=== PATIENT | female | born 1965 | race Caucasian/White ===

== ENCOUNTER 2017-03-17 11:49 | Emergency (ER) | payer MEDICARE, OTHER ==
--- NOTE | 2017-03-17 12:29 | ERPHSYRPT ---
- History of Present Illness Time Seen by Provider: 03/17/17 12:00 Source: patient Patient Subjective Stated Complaint: yesterday went outside in the wet grass and then stomped feet and now has pain in left ankle Triage Nursing Assessment: ambulated to room six per self wearing a walking boot. skin w/d, color. foot warm, normal color, good pedal pulse. normal cap refill. Physician History: CC: left ankle pain Hx: 51 y/o patient of [email or web address] [employer]. She has hx of weak ankles. Usually wears a brace. Yesterday walked the dog without her brace. Stomped feet on porch and then ahd pain in left ankle. Took APAP. Using a CAM boot now. Suposed to get new special braces soon thru [facility]. No other injury or complaints. She has multiple allergies. Pain moderate and worse with movement. Lower Extremities Pain: ankle: left Allergies/Adverse Reactions: acetaminophen [From Percocet] Allergy (Verified 03/17/17 12:21) adhesive tape Allergy (Verified 03/17/17 12:21) alendronate sodium [From Fosamax] Allergy (Verified 03/17/17 12:21) azithromycin [From Zithromax Z-Ciro] Allergy (Verified 03/17/17 12:21) celecoxib [From Celebrex] Allergy (Verified 03/17/17 12:21) payan Allergy (Verified 03/17/17 12:21) codeine Allergy (Verified 03/17/17 12:21) diphenhydramine [From Benadryl] Allergy (Verified 03/17/17 12:21) moxifloxacin [From Vigamox] Allergy (Verified 03/17/17 12:21) nortriptyline Allergy (Verified 03/17/17 12:21) oxycodone [From Percocet] Allergy (Verified 03/17/17 12:21) Penicillins Allergy (Verified 03/17/17 12:21) risedronate sodium [From Actonel] Allergy (Verified 03/17/17 12:21) ropinirole [From Requip] Allergy (Verified 03/17/17 12:21) rosuvastatin [From Crestor] Allergy (Verified 03/17/17 12:21) solifenacin [From Vesicare] Allergy (Verified 03/17/17 12:21) strawberry Allergy (Verified 03/17/17 12:21) tolterodine [From Detrol] Allergy (Verified 03/17/17 12:21) topiramate [From Topamax] Allergy (Verified 03/17/17 12:21) albuterol Adverse Reaction (Verified 03/17/17 12:21) atorvastatin [From Lipitor] Adverse Reaction (Verified 03/17/17 12:21) cyclobenzaprine [From Flexeril] Adverse Reaction (Verified 03/17/17 12:21) fluticasone furoate [From Breo Ellipta] Adverse Reaction (Verified 03/17/17 12: 21) glatiramer (copolymer 1) [From Copaxone] Adverse Reaction (Verified 03/17/17 12: 21) ibuprofen Adverse Reaction (Verified 03/17/17 12:21) interferon beta-1a [From Avonex] Adverse Reaction (Verified 03/17/17 12:21) ipratropium [From Combivent] Adverse Reaction (Verified 03/17/17 12:21) ketorolac [From Acular] Adverse Reaction (Verified 03/17/17 12:21) milnacipran [From Savella] Adverse Reaction (Verified 03/17/17 12:21) nicotine [From Nicotrol] Adverse Reaction (Verified 03/17/17 12:21) vilanterol [From Breo Ellipta] Adverse Reaction (Verified 03/17/17 12:21) Home Medications: Darifenacin Hydrobromide [Darifenacin ER] 7.5 mg PO DAILY 03/17/17 [History] Duloxetine HCl [Cymbalta] 60 mg PO DAILY 03/17/17 [History] Esomeprazole Magnesium [Nexium] 40 mg PO BID 03/17/17 [History] Fenofibrate,Micronized [Fenofibrate] 134 mg PO DAILY 03/17/17 [History] Gabapentin 400 mg [Neurontin 400 MG] 400 mg PO BID 03/17/17 [History] Pitavastatin Calcium [Livalo] 2 mg PO DAILY 03/17/17 [History] Pramipexole Di-HCl 0.5 mg [Mirapex 0.5 MG Tablet] 0.5 mg PO BID 03/17/17 [ History] Propranolol HCl 10 mg PO BID 03/17/17 [History] Hx Tetanus, Diphtheria Vaccination/Date Given: No Hx Influenza Vaccination/Date Given: Yes Hx Pneumococcal Vaccination/Date Given: Yes - Review of Systems Constitutional: No Symptoms Skin: No Rash Neurological: No Focal Weakness, No Headache, No Parasthesia - Past Medical History Pertinent Past Medical History: Yes Neurological History: Peripheral Neuropathy, Other Cardiac History: High Cholesterol Endocrine Medical History: Diabetes Type II Musculoskeletal History: Fibromyalgia, Osteoarthritis, Other GI Medical History: Esophageal Disorder, GERD, Irritable Bowel Psycho-Social History: Anxiety, Depression Other Medical History: RLS, SIMMONS UVETITIS, BACK PROBLEMS, SCOLIOSIS, ANKLE WEAKNESS, LUNG SCAR TISSUE, BOOP - Past Surgical History Past Surgical History: Yes Gastrointestinal: Cholecystectomy Musculoskeletal: Orthopedic Surgery Female Surgical History: Hysterectomy Other Surgical History: CARPAL TUNNEL BILATERAL - Social History Smoking Status: Current every day smoker How long have you smoked: 40 Exposure to second hand smoke: No Drug Use: none Patient Lives Alone: No - Nursing Vital Signs Nursing Vital Signs: Initial Vital Signs Temperature 97.5 F Temperature Source Oral Pulse Rate 67 Respiratory Rate 16 Blood Pressure [Right Arm] 164/90 Pain Intensity 9 - Physical Exam General Appearance: alert Neck Exam: supple Cardiovascular/Respiratory Exam: regular rate/rhythm Neuro/Tendon Exam: normal motor functions Mental Status Exam: alert, oriented x 3, cooperative Skin Exam: warm, dry SpO2: 96 Oxygen Delivery: Room Air Comments: Left ankle tender at both malleoli. DP pulse intact. No swelling, redness, or eccymosis. - Course Nursing assessment & vital signs reviewed: Yes Ordered Tests: Active Orders 24 hr Category Date Time Status ANKLE (3 VIEWS) Stat Exams 03/17/17 12:04 Taken - Progress Progress Note: 03/17/17 12:28 Pt declines APAP but desires xray of left ankle. - Departure Time of Disposition: 12:43 Departure Disposition: Home Clinical Impression: Left ankle strain Condition: Stable Critical Care Time: No Referrals: MATT FOWLER [ACTIVE STAFF] - AGUSTO ZARATE [NON-STAFF PHY W/O PRIVILEGES] - Instructions: Ankle Sprain Additional Instructions: Wear your brace. Ice and rest. Tylenol as directed for discomfort. Follow up with Dr Zarate or [facility].
[2017-03-17 12:47] VITALS: BP 161/77; PULSE 70; O2SAT 97
--- NOTE | 2017-03-17 12:49 | XRAY ---
Indication: Pain. Comparison: None 3 views of the left ankle demonstrates tiny well-circumscribed ossification just anterior to the ankle joint either degenerative versus old injury. No other bony, articular, or soft tissue abnormalities.
== END 2017-03-17 12:46 | disposition home or self-care (01) ==
LOC: ED 11:49
DX: S93.402A Sprain of unspecified ligament of left ankle, initial encounter (principal); X50.0XXA Overexertion from strenuous movement or load, initial encounter; Z79.899 Other long term (current) drug therapy; E78.00 Pure hypercholesterolemia, unspecified; E11.9 Type 2 diabetes mellitus without complications
CPT/HCPCS: 73610; 99283

== ENCOUNTER 2019-04-30 11:02 | Emergency (ER) | payer MEDICARE ==
--- NOTE | 2019-04-30 11:40 | ERPHSYRPT ---
- History of Present Illness Time Seen by Provider: 04/30/19 11:32 Source: patient Exam Limitations: no limitations Patient Subjective Stated Complaint: pt here for pain to left shoulder, she states she lost her balance and fell striking left side and then landing face first, no loc, pt states she now has left shoulder pain and burning Triage Nursing Assessment: pt alert, no distress, walked in, resp easy, skin w/d /p. pt able to move left shoulder, radial pulse strong, no bruising or abrasions noted Physician History: 53-year-old white female with history of peripheral neuropathy hyperlipidemia, diabetes, fibromyalgia Patient arrives with complaint of pain in her left shoulder she states she has some stiffness in her neck. She states she fell last night. Patient without loss of consciousness. Patient with the above complaints. Past medical history includes peripheral neuropathy, hyperlipidemia, diabetes type 2, fibromyalgia, osteoarthritis, esophageal disorder, GERD, irritable bowel , anxiety, depression, RLS, panuveitis, back problems, scoliosis, ankle weakness , lung scar tissue, BOOP. Past surgical history includes cholecystectomy, hysterectomy, bilateral carpal tunnel Social history positive tobacco Timing/Duration: yesterday Severity: moderate Modifying Factors: Improves With: nothing Associated Symptoms: No nausea, No vomiting, No abdominal pain, No shortness of breath, No heartburn, No diaphoresis, No cough, No chills, No chest pain, No fever, No headaches, No loss of appetite, No malaise, No rash, No syncope, No seizure, No weakness Allergies/Adverse Reactions: acetaminophen [From Percocet] Allergy (Verified 04/30/19 11:30) adhesive tape Allergy (Verified 04/30/19 11:30) alendronate sodium [From Fosamax] Allergy (Verified 04/30/19 11:30) azithromycin [From Zithromax Z-Ciro] Allergy (Verified 04/30/19 11:30) celecoxib [From Celebrex] Allergy (Verified 04/30/19 11:30) payan Allergy (Verified 04/30/19 11:30) codeine Allergy (Verified 04/30/19 11:30) diphenhydramine [From Benadryl] Allergy (Verified 04/30/19 11:30) moxifloxacin [From Vigamox] Allergy (Verified 04/30/19 11:30) nortriptyline Allergy (Verified 04/30/19 11:30) oxycodone [From Percocet] Allergy (Verified 04/30/19 11:30) Penicillins Allergy (Verified 04/30/19 11:30) risedronate sodium [From Actonel] Allergy (Verified 04/30/19 11:30) ropinirole [From Requip] Allergy (Verified 04/30/19 11:30) rosuvastatin [From Crestor] Allergy (Verified 04/30/19 11:30) solifenacin [From Vesicare] Allergy (Verified 04/30/19 11:30) strawberry Allergy (Verified 04/30/19 11:30) tolterodine [From Detrol] Allergy (Verified 04/30/19 11:30) topiramate [From Topamax] Allergy (Verified 04/30/19 11:30) albuterol Adverse Reaction (Verified 04/30/19 11:30) atorvastatin [From Lipitor] Adverse Reaction (Verified 04/30/19 11:30) cyclobenzaprine [From Flexeril] Adverse Reaction (Verified 04/30/19 11:30) fluticasone furoate [From Breo Ellipta] Adverse Reaction (Verified 04/30/19 11: 30) glatiramer (copolymer 1) [From Copaxone] Adverse Reaction (Verified 04/30/19 11: 30) ibuprofen Adverse Reaction (Verified 04/30/19 11:30) interferon beta-1a [From Avonex] Adverse Reaction (Verified 04/30/19 11:30) ipratropium [From Combivent] Adverse Reaction (Verified 04/30/19 11:30) ketorolac [From Acular] Adverse Reaction (Verified 04/30/19 11:30) milnacipran [From Savella] Adverse Reaction (Verified 04/30/19 11:30) nicotine [From Nicotrol] Adverse Reaction (Verified 04/30/19 11:30) vilanterol [From Breo Ellipta] Adverse Reaction (Verified 04/30/19 11:30) Home Medications: Darifenacin Hydrobromide [Darifenacin ER] 7.5 mg PO DAILY 03/17/17 [History] Duloxetine HCl [Cymbalta] 90 mg PO DAILY 03/17/17 [History] Esomeprazole Magnesium [Nexium] 40 mg PO BID 03/17/17 [History] Estradiol 1 mg [Estrace 1 mg] 1 mg PO HS 03/17/17 [History] Fenofibrate,Micronized [Fenofibrate] 134 mg PO DAILY 03/17/17 [History] Folic Acid 1 mg PO DAILY 03/17/17 [History] Gabapentin 400 mg [Neurontin 400 MG] 400 mg PO BID 03/17/17 [History] Levalbuterol HCl [Xopenex] 1.25 mg IH Q6HPRN PRN 03/17/17 [History] Metformin HCl 500 mg [Glucophage 500 MG] 500 mg PO HS 03/17/17 [History] Methotrexate/Pf [Otrexup 12.5 mg/0.4 ml Autoinj] 12.5 mg SQ WEEKLY 03/17/17 [ History] Montelukast Sodium [Singulair] 10 mg PO DAILY 03/17/17 [History] Pitavastatin Calcium [Livalo] 2 mg PO DAILY 03/17/17 [History] Pramipexole Di-HCl 0.5 mg [Mirapex 0.5 MG Tablet] 0.5 mg PO BID 03/17/17 [ History] Promethazine HCl 25 mg [Phenergan 25 mg] 25 mg PO UD 03/17/17 [History] Propranolol HCl 10 mg PO BID 03/17/17 [History] Hx Tetanus, Diphtheria Vaccination/Date Given: No Hx Influenza Vaccination/Date Given: Yes Hx Pneumococcal Vaccination/Date Given: Yes Immunizations Up to Date: Yes - Review of Systems Constitutional: No Fever, No Chills Eyes: No Symptoms Ears, Nose, & Throat: No Symptoms Respiratory: No Cough, No Dyspnea Cardiac: No Chest Pain, No Edema, No Syncope Abdominal/Gastrointestinal: No Abdominal Pain, No Nausea, No Vomiting, No Diarrhea Genitourinary Symptoms: No Dysuria Musculoskeletal: Neck Pain (neck feels stiff), Fall, Joint Pain (left shoulder pain), No Arthralgias, No Back Pain, No Deformity, No Injury, No Joint Redness Skin: No Rash Neurological: No Dizziness, No Focal Weakness, No Sensory Changes Psychological: No Symptoms Endocrine: No Symptoms All Other Systems: Reviewed and Negative - Past Medical History Pertinent Past Medical History: Yes Neurological History: Peripheral Neuropathy, Other Cardiac History: High Cholesterol Endocrine Medical History: Diabetes Type II Musculoskeletal History: Arthritis, Fibromyalgia, Osteoarthritis, Other GI Medical History: Colitis, Esophageal Disorder, GERD, Irritable Bowel Psycho-Social History: Anxiety, Depression Other Medical History: RLS, SIMMONS UVETITIS, BACK PROBLEMS, SCOLIOSIS, ANKLE WEAKNESS, LUNG SCAR TISSUE, BOOP,MS - Past Surgical History Past Surgical History: Yes Gastrointestinal: Cholecystectomy Musculoskeletal: Orthopedic Surgery Female Surgical History: Hysterectomy Other Surgical History: CARPAL TUNNEL BILATERAL - Social History Smoking Status: Current every day smoker How long have you smoked: 40 Exposure to second hand smoke: Yes Drug Use: marijuana Patient Lives Alone: No - Female History Hx Last Menstrual Period: post Hx Now: No - Nursing Vital Signs Nursing Vital Signs: Initial Vital Signs Temperature 97.0 F 04/30/19 11:19 Pulse Rate 74 04/30/19 11:19 Respiratory Rate 16 04/30/19 11:19 Blood Pressure 132/74 04/30/19 11:19 O2 Sat by Pulse Oximetry 97 04/30/19 11:19 Pain Scale Pain Intensity 10 - Physical Exam General Appearance: no apparent distress, alert Eye Exam: PERRL/EOMI, eyes nml inspection Ears, Nose, Throat Exam: normal ENT inspection, TMs normal, pharynx normal, moist mucous membranes Neck Exam: non-tender, supple, full range of motion, other (patient states neck feels stiff) Respiratory Exam: normal breath sounds, lungs clear, No respiratory distress Cardiovascular Exam: regular rate/rhythm, normal heart sounds, normal peripheral pulses, capillary refill <2 sec Gastrointestinal/Abdomen Exam: soft, normal bowel sounds, No tenderness, No mass Back Exam: normal inspection, normal range of motion, No CVA tenderness, No vertebral tenderness Extremity Exam: other (ddecreased range of motion left shoulder secondary to pain. Left shoulder tender with palpation superiorly) Neurologic Exam: alert, oriented x 3, cooperative, maths tutor II-XII nml as tested, normal mood/affect, nml cerebellar function, nml station & gait, sensation nml, No motor deficits Skin Exam: normal color, warm, dry, No rash Lymphatic Exam: No adenopathy SpO2 Interpretation: normal (97%) SpO2: 97 - Course Nursing assessment & vital signs reviewed: Yes - Radiology Exams Left Shoulder X-ray Interpretation: Teleradiologist Report (x-ray left shoulder: No acute findings noted) C-Spine X-ray Interpretation: Teleradiologist Report (x-ray C-spine: Impression 1. Status post anterior fusion at the C6-C7 level with intravertebral spacers present. The hardware is intact without evidence for loosening, fracture, or failure. 2. Slight narrowing of the C5-C6 disc space.) Ordered Tests: Active Orders 24 hr Category Date Time Status Sling Application STAT Care 04/30/19 13:20 Active CERVICAL SPINE (2 OR 3 VIEW) Stat Exams 04/30/19 11:35 Taken SHOULDER Stat Exams 04/30/19 11:36 Taken Medication Summary Discontinued Medications Generic Name Dose Route Start Last Admin Trade Name Freq PRN Reason Stop Dose Admin Hydrocodone Bitart/Acetaminophen 1 tab 04/30/19 11:36 04/30/19 12:08 [place] 5/325 Mg PO 04/30/19 11:37 Not Given STAT ONE Hydrocodone Bitart/Acetaminophen Confirm 04/30/19 11:49 [place] 5/325 Mg Administered 04/30/19 11:50 Dose 1 tab .ROUTE .STK-MED ONE - Progress Progress: improved Progress Note: 04/30/19 13:17 Patient's x-ray of the patient's left shoulder and C-spine no acute fractures or subluxation. Will offer patient a sling sent home with prescription for [place] for pain. She states she can take this medication She is driving so she was not given any in the emergency room. - Departure Departure Disposition: Home Clinical Impression: Accidental fall Qualifiers: Encounter type: initial encounter Qualified Code(s): W19.XXXA - Unspecified fall, initial encounter Left shoulder strain Qualifiers: Encounter type: initial encounter Qualified Code(s): S46.912A - Strain of unspecified muscle, fascia and tendon at shoulder and upper arm level, left arm , initial encounter Cervical strain Qualifiers: Encounter type: initial encounter Qualified Code(s): S16.1XXA - Strain of muscle, fascia and tendon at neck level, initial encounter Condition: Fair Critical Care Time: No Referrals: DOCTOR,NO FAMILY [Primary Care Provider] - Instructions: Preventing Falls Additional Instructions: Return home. Cold packs to left shoulder 24-48 hours. [place] as prescribed. Followup with your family if symptoms are worse, no better in 48 hours or persist longer than one week. Return for acute distress or for severe symptoms. Prescriptions: Hydrocodone/APAP 5-325 Tab^^^ [[place] 5-325 Tablet^^^] 1 tab PO Q6HPRN PRN #10 tablet MDD 6 PRN Reason: left shoulder, neck pain
[2019-04-30] MEDS ORDERED: NORCO 5/325 MG ONE (11:49)
[2019-04-30] MEDS: NORCO 5/325 MG PO ONE ×2 (12:06→12:08)
[2019-04-30 13:22] VITALS: BP 122/68; PULSE 72; O2SAT 97
--- NOTE | 2019-04-30 21:11 | XRAY ---
Indication: Pain following fall. Comparison: None 3 views of the left scapula demonstrates minimal AC degenerative arthropathy and lower cervical fusion. No other bony, articular, or soft tissue abnormalities. Comment: Preliminary interpretation was made by [facility]. No discrepancy.
--- NOTE | 2019-04-30 21:13 | XRAY ---
Indication: Neck pain following fall. Comparison: None 3 views of the cervical spine demonstrates normal alignment, C6-C7 anterior fusion, and mild C5-C6 endplate spurring. No other bony, articular, or soft tissue abnormalities. Comment: Preliminary interpretation was made by [facility]. No discrepancy.
== END 2019-04-30 13:35 | disposition home or self-care (01) ==
LOC: ED 11:02
DX: S46.912A Strain of unspecified muscle, fascia and tendon at shoulder and upper arm level, left arm, initial encounter (principal); S16.2XXA Laceration of muscle, fascia and tendon at neck level, initial encounter; W19.XXXA Unspecified fall, initial encounter; G62.9 Polyneuropathy, unspecified; E78.5 Hyperlipidemia, unspecified; E11.9 Type 2 diabetes mellitus without complications; Z79.4 Long term (current) use of insulin; M79.7 Fibromyalgia; K21.9 Gastro-esophageal reflux disease without esophagitis; F41.9 Anxiety disorder, unspecified; F32.9 Major depressive disorder, single episode, unspecified
CPT/HCPCS: 72040; 73030; 99284; A9270-GY

== ENCOUNTER 2019-07-18 10:33 | Emergency (ER) | payer MEDICARE ==
--- NOTE | 2019-07-18 11:21 | ERPHSYRPT ---
- History of Present Illness Time Seen by Provider: 07/18/19 11:00 Source: patient Exam Limitations: no limitations Patient Subjective Stated Complaint: pt stated that she has chronic back pain/ injury, pt stated that she was laying on the picnic bench and left leg fell to the ground, pt states that she can not have her back flat and always needs a leg bent and up, pt states that pain is 10/10 up the spine to along the hips and down the both legs, pt stated that she use lidoderm 5% with no relief Triage Nursing Assessment: pt ambulated into the ER, pt c/o of 10/10 pain to back that radiates to hips and lower extremities, pt is making frequent changes in position, vitals wnl Physician History: 53 y/o white female with chronic low back pain presents with recurrent low back pain and buttock pain of one day duration. pt was lying on her back on a bench and one of her legs fell off bench "jarring" her back precipitating her pain. pain not controlled with a lidoderm patch. pt has multiple drug allergies. she states she CAN have morphine, phenergan and norco. she did not fall only her leg from the height of the bench she was laying on. Timing/Duration: day(s) (1) Method of Injury: other (leg fell off bench) Quality: radiating, sharp, stabbing Back Pain Location: lumbar spine, coccyx Severity of Pain-Max: moderate Severity of Pain-Current: moderate Modifying Factors: Improves With: movement Associated Symptoms: lower back pain, No loss of bowel control, No numbness in legs/feet, No sensory/motor loss, No tingling in legs/feet Previous symptoms: no prior history Allergies/Adverse Reactions: acetaminophen [From Percocet] Allergy (Verified 07/18/19 11:03) adhesive tape Allergy (Verified 07/18/19 11:03) alendronate sodium [From Fosamax] Allergy (Verified 07/18/19 11:03) azithromycin [From Zithromax Z-Ciro] Allergy (Verified 07/18/19 11:03) celecoxib [From Celebrex] Allergy (Verified 07/18/19 11:03) payan Allergy (Verified 07/18/19 11:03) codeine Allergy (Verified 07/18/19 11:03) diphenhydramine [From Benadryl] Allergy (Verified 07/18/19 11:03) moxifloxacin [From Vigamox] Allergy (Verified 07/18/19 11:03) nortriptyline Allergy (Verified 07/18/19 11:03) oxycodone [From Percocet] Allergy (Verified 07/18/19 11:03) Penicillins Allergy (Verified 07/18/19 11:03) risedronate sodium [From Actonel] Allergy (Verified 07/18/19 11:03) ropinirole [From Requip] Allergy (Verified 07/18/19 11:03) rosuvastatin [From Crestor] Allergy (Verified 07/18/19 11:03) solifenacin [From Vesicare] Allergy (Verified 07/18/19 11:03) strawberry Allergy (Verified 07/18/19 11:03) tolterodine [From Detrol] Allergy (Verified 07/18/19 11:03) topiramate [From Topamax] Allergy (Verified 07/18/19 11:03) albuterol Adverse Reaction (Verified 07/18/19 11:03) atorvastatin [From Lipitor] Adverse Reaction (Verified 07/18/19 11:03) cyclobenzaprine [From Flexeril] Adverse Reaction (Verified 07/18/19 11:03) fluticasone furoate [From Breo Ellipta] Adverse Reaction (Verified 07/18/19 11: 03) glatiramer (copolymer 1) [From Copaxone] Adverse Reaction (Verified 07/18/19 11: 03) ibuprofen Adverse Reaction (Verified 07/18/19 11:03) interferon beta-1a [From Avonex] Adverse Reaction (Verified 07/18/19 11:03) ipratropium [From Combivent] Adverse Reaction (Verified 07/18/19 11:03) ketorolac [From Acular] Adverse Reaction (Verified 07/18/19 11:03) milnacipran [From Savella] Adverse Reaction (Verified 07/18/19 11:03) nicotine [From Nicotrol] Adverse Reaction (Verified 07/18/19 11:03) vilanterol [From Breo Ellipta] Adverse Reaction (Verified 07/18/19 11:03) Home Medications: Duloxetine HCl [Cymbalta] 60 mg PO DAILY 03/17/17 [History] Esomeprazole Magnesium [Nexium] 40 mg PO BID 03/17/17 [History] Fenofibrate,Micronized [Fenofibrate] 134 mg PO DAILY 03/17/17 [History] Folic Acid 1 mg PO DAILY 03/17/17 [History] Gabapentin 400 mg [Neurontin 400 MG] 800 mg PO TID 03/17/17 [History] Levalbuterol HCl [Xopenex] 1.25 mg IH Q6HPRN PRN 03/17/17 [History] Montelukast Sodium [Singulair] 10 mg PO DAILY 03/17/17 [History] Pramipexole Di-HCl 0.5 mg [Mirapex 0.5 MG Tablet] 0.5 mg PO BID 03/17/17 [ History] Promethazine HCl 25 mg [Phenergan 25 mg] 25 mg PO UD 03/17/17 [History] Propranolol HCl 10 mg PO BID 03/17/17 [History] Amlodipine Besylate 2.5 mg PO DAILY 07/18/19 [History] Clonazepam 1 mg PO DAILY 07/18/19 [History] Desloratadine 5 mg PO DAILY 07/18/19 [History] Furosemide 20 mg [Lasix 20 mg] 20 mg PO DAILY 07/18/19 [History] Lidocaine 5 patch DAILY 07/18/19 [History] Sitagliptin Phosphate [Januvia] 100 mg PO DAILY 07/18/19 [History] Hx Tetanus, Diphtheria Vaccination/Date Given: Yes (4 months ago) Hx Influenza Vaccination/Date Given: No Hx Pneumococcal Vaccination/Date Given: No - Review of Systems Constitutional: No Symptoms Eyes: No Symptoms Ears, Nose, & Throat: No Symptoms Respiratory: No Symptoms Cardiac: No Symptoms Abdominal/Gastrointestinal: No Symptoms Genitourinary Symptoms: No Symptoms Musculoskeletal: Back Pain Skin: No Symptoms Neurological: No Symptoms Psychological: No Symptoms Endocrine: No Symptoms Hematologic/Lymphatic: No Symptoms Immunological/Allergic: No Symptoms All Other Systems: Reviewed and Negative - Past Medical History Pertinent Past Medical History: Yes Neurological History: Peripheral Neuropathy, Other Cardiac History: High Cholesterol Endocrine Medical History: Diabetes Type II Musculoskeletal History: Arthritis, Fibromyalgia, Osteoarthritis, Other GI Medical History: Colitis, Esophageal Disorder, GERD, Irritable Bowel Psycho-Social History: Anxiety, Depression Other Medical History: RLS, SIMMONS UVETITIS, BACK PROBLEMS, SCOLIOSIS, ANKLE WEAKNESS, LUNG SCAR TISSUE, BOOP,MS - Past Surgical History Past Surgical History: Yes Gastrointestinal: Cholecystectomy Musculoskeletal: Orthopedic Surgery Female Surgical History: Hysterectomy Other Surgical History: CARPAL TUNNEL BILATERAL - Social History Smoking Status: Current every day smoker How long have you smoked: 40 Exposure to second hand smoke: Yes Drug Use: marijuana Patient Lives Alone: No - Female History Hx Now: No - Nursing Vital Signs Nursing Vital Signs: Initial Vital Signs Temperature 97.7 F 07/18/19 10:41 Pulse Rate 72 07/18/19 10:41 Respiratory Rate 18 07/18/19 10:41 Blood Pressure 147/83 07/18/19 10:41 O2 Sat by Pulse Oximetry 97 07/18/19 10:41 Pain Scale Pain Intensity [Back] 10 Pain Intensity 10 - Physical Exam General Appearance: moderate distress, alert, anxiety Eye Exam: PERRL/EOMI, eyes nml inspection Ears, Nose, Throat Exam: normal ENT inspection, moist mucous membranes Neck Exam: normal inspection, non-tender, supple, full range of motion Respiratory Exam: normal breath sounds, lungs clear, airway intact, No chest tenderness, No respiratory distress Gastrointestinal Exam: No tenderness Pelvic Exam: not done Rectal Exam: not done Back Exam: normal inspection, decreased range of motion, muscle spasm, No vertebral tenderness Extremity Exam: normal inspection, normal range of motion, pelvis stable Neurologic Exam: alert, oriented x 3, cooperative, 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 II-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 nml as tested Skin Exam: normal color, warm, dry Lymphatic Exam: No adenopathy SpO2 Interpretation: normal SpO2: 97 O2 Delivery: Room Air - Course Nursing assessment & vital signs reviewed: Yes Ordered Tests: Active Orders 24 hr Category Date Time Status LUMBAR LIMITED (2 OR 3 VIEWS) Stat Exams 07/18/19 11:26 Completed SACRUM AND COCCYX Stat Exams 07/18/19 11:53 Completed Medication Summary Discontinued Medications Generic Name Dose Route Start Last Admin Trade Name Freq PRN Reason Stop Dose Admin Morphine Sulfate 4 mg 07/18/19 11:25 07/18/19 11:53 Morphine Sulfate 4 Mg Inj IM 07/18/19 11:26 4 mg STAT ONE Administration Morphine Sulfate Confirm 07/18/19 11:33 Morphine Sulfate 4 Mg Inj Administered 07/18/19 11:34 Dose 4 mg .ROUTE .STK-MED ONE Promethazine HCl 25 mg 07/18/19 11:26 07/18/19 11:53 Phenergan 25 Mg Inj IM 07/18/19 11:27 25 mg STAT ONE Administration Promethazine HCl Confirm 07/18/19 11:32 Phenergan 25 Mg Inj Administered 07/18/19 11:33 Dose 25 mg .ROUTE .STK-MED ONE - Progress Progress: improved Counseled pt/family regarding: diagnosis, need for follow-up, rad results - Departure Departure Disposition: Home Clinical Impression: Acute exacerbation of chronic low back pain Condition: Stable Critical Care Time: No Referrals: ANIKA MARTIN, [employer] [Primary Care Provider] - Additional Instructions: call your prescribing doctor today to arrange follow up appointment Prescriptions: Hydrocodone/APAP 5/325 [[place] 5/325 mg] 1 each PO Q8H PRN PRN #6 tablet MDD 3 PRN Reason: Pain
[2019-07-18] MEDS ORDERED: MORPHINE SULFATE 4 MG INJ IM ONE (11:25)
[2019-07-18] MEDS ORDERED: Phenergan 25 MG INJ IM ONE (11:26)
[2019-07-18] MEDS ORDERED: Phenergan 25 MG INJ ONE (11:32)
[2019-07-18] MEDS ORDERED: MORPHINE SULFATE 4 MG INJ ONE (11:33)
--- NOTE | 2019-07-18 12:06 | XRAY ---
Indication: Pain following fall. Comparison: None 3 views of the lumbar spine demonstrates 5 lumbar vertebral segments in normal alignment with L5-S1 fusion surgery as evidenced by intact bilateral posterior spinal hardware and intervertebral spacer. Incidental mild aortic calcifications. No other bony, articular, or soft tissue abnormalities. Impression: Nonacute lumbar spine with chronic features.
--- NOTE | 2019-07-18 12:08 | XRAY ---
Indication: Pain following fall. Comparison: None 3 views of the sacrum/coccyx demonstrates L5-S1 fusion surgery as evidenced by intact bilateral posterior spinal hardware and intervertebral spacer. Incidental mild aortic calcifications and pelvic phleboliths. No other bony, articular, or soft tissue abnormalities. Impression: Nonacute sacrum/coccyx with chronic features.
[2019-07-18] MEDS ORDERED: MORPHINE SULFATE 2 MG INJ IM ONE (12:48)
[2019-07-18] MEDS ORDERED: MORPHINE SULFATE 2 MG INJ ONE (12:53)
[2019-07-18 12:55] VITALS: O2SAT 97
[2019-07-18 13:31] VITALS: BP 122/70; PULSE 78
== END 2019-07-18 13:29 | disposition home or self-care (01) ==
LOC: ED 10:33
DX: M54.5 Low back pain (principal)
CPT/HCPCS: 72100; 72220; 96372; 99284; J2270; J2550

== ENCOUNTER 2022-01-31 09:26 | Emergency (ER) | payer MEDICARE, OTHER ==
[2022-01-31] MEDS ORDERED: Sodium Chloride 0.9% 1000 ML 1,000 ML IV STA (09:28)
[2022-01-31] MEDS ORDERED: NARCAN 2 MG/2 ML IV ONE (09:29)
[2022-01-31] MEDS ORDERED: Narcan 0.4 MG/ML ONE (09:30)
[2022-01-31] MEDS ORDERED: Sodium Chloride 0.9% 1000 ML 1,000 ML ONE (09:46)
[2022-01-31] MEDS ORDERED: Narcan 0.4 MG/ML IV ONE (09:46)
[2022-01-31 09:50] LABS: Basophil (Absolute #) 0.11 (0-0.4); Eosinophil % 1.2 % (0.00-5.0); Eosinophil (Absolute #) 0.17 (0-0.5); Hematocrit 43.5 % (35-47); Hemoglobin 13.9 gm/dl (12.0-16.0); Lymphocyte (Absolute #) 3.73 (1.0-4.6); Lymphocytes % 27.2 % (24.0-44.0); Mean Cell Volume 94.4 fl (78-100); Mean Corpuscular Hemoglobin 30.2 pg (26-32); Mean Platelet Volume 9.9 fl (7.5-11.0); Neutrophil % 62.8 % (36.0-66.0); Platelet Count 309 K/mm3 (150-450); Red Blood Count 4.61 M/mm3 (4.1-5.4); Red Cell Distribution Width 14.6 % (11.5-14.0); White Blood Count 13.7 K/mm3 (4.0-10.5)
[2022-01-31 10:10] LABS: ALKALINE PHOSPHATASE 120 U/L (38-126); ANION GAP 15.1 MEQ/L (5-15); BLOOD UREA NITROGEN 8 mg/dL (7-17); CHLORIDE 104 mmol/L (98-107); Calcium 8.7 mg/dL (8.4-10.2); Carbon Dioxide 23 mmol/L (22-30); Creatinine 1 0.44 mg/dL (0.52-1.04); EST GLOMERULAR FILTRATION RATE > 60.0 ML/MIN; ETHYL ALCOHOL < 10 mg/dL (0-10); Glucose 230 mg/dL (74-106); LIPASE 448 U/L (23-300); NT PRO BNP 61.6 pg/mL (0-900); SGOT/AST 24 U/L (14-36); SGPT/ALT 23 U/L (0-35); SODIUM 138 mmol/L (137-145)
--- NOTE | 2022-01-31 10:13 | XRAY ---
Indication: Syncope. Acute mental status change. Comparison: One day earlier. Portable chest less inflated and remains clear. Heart not enlarged. No new/acute cardiopulmonary abnormalities.
--- NOTE | 2022-01-31 10:15 | XRAY ---
Indication: Syncope. Acute mental status change. Multiple contiguous axial images obtained through the head without contrast. Comparison: None Normal appearing brain parenchyma, ventricles, and bony calvarium for patient's age. 1 cm left maxillary sinus polyp/retention cyst. Remaining paranasal sinuses and mastoid air cells are clear. Incidental left orbit postsurgical changes. Impression: Left maxillary sinus polyp/retention cyst. Remaining CT head without contrast exam is normal.
--- NOTE | 2022-01-31 10:44 | ERPHSYRPT ---
- History of Present Illness Time Seen by Provider: 01/31/22 09:27 Source: patient Exam Limitations: no limitations Patient Subjective Stated Complaint: Pt was in outpatient surgery and was getting an antibiotic infusion. rocephin, zofran and cubicin and they could not wake her up. She was finished with the infsuion they tried to wake her up and could not. Sent her to the ED. Triage Nursing Assessment: Pt was in outpatient surgery and was getting an antibiotic infusion. rocephin, zofran and cubicin and they could not wake her up. She was finished with the infsuion they tried to wake her up and could not. Sent her to the ED. Physician History: Patient here with an episode of altered mental status. She was receiving an IV antibiotic infusion at outpatient today. There she became more somnolent. She is awake and alert with a sternal rub. She is able to calm her state. She then goes back to sleep. She denies any illicit drug use. Patient does take narcotics and benzodiazepines per her medication list. She is getting IV antibiotic infusion for an infected hand injury. No other pain, falls, trauma. Allergies/Adverse Reactions: fluticasone Allergy (Intermediate, Verified 01/31/22 08:50) Difficulty Breathing leflunomide Allergy (Intermediate, Verified 01/31/22 08:50) Rash meloxicam Allergy (Intermediate, Verified 01/31/22 08:50) Rash umeclidinium Allergy (Intermediate, Verified 01/31/22 08:50) Difficulty Breathing adhesive tape Allergy (Mild, Verified 01/31/22 08:50) Rash Penicillins Allergy (Mild, Verified 01/31/22 08:50) acetaminophen [From Percocet] Allergy (Verified 01/31/22 08:50) alendronate sodium [From Fosamax] Allergy (Verified 01/31/22 08:50) azithromycin [From Zithromax Z-Ciro] Allergy (Verified 01/31/22 08:50) Itching celecoxib [From Celebrex] Allergy (Verified 01/31/22 08:50) payan Allergy (Verified 01/31/22 08:50) codeine Allergy (Verified 01/31/22 08:50) moxifloxacin [From Vigamox] Allergy (Verified 01/31/22 08:50) nortriptyline Allergy (Verified 01/31/22 08:50) oxycodone [From Percocet] Allergy (Verified 01/31/22 08:50) risedronate sodium [From Actonel] Allergy (Verified 01/31/22 08:50) ropinirole [From Requip] Allergy (Verified 01/31/22 08:50) rosuvastatin [From Crestor] Allergy (Verified 01/31/22 08:50) solifenacin [From Vesicare] Allergy (Verified 01/31/22 08:50) [id number] Reductase Inhibitor Allergy (Verified 01/31/22 08:50) Rash strawberry Allergy (Verified 01/31/22 08:50) tolterodine [From Detrol] Allergy (Verified 01/31/22 08:50) Hives topiramate [From Topamax] Allergy (Verified 01/31/22 08:50) Hives mirabegron Adverse Reaction (Severe, Verified 01/31/22 08:50) metronidazole Adverse Reaction (Intermediate, Verified 01/31/22 08:50) Nausea and Vomiting albuterol Adverse Reaction (Verified 01/31/22 08:50) atorvastatin [From Lipitor] Adverse Reaction (Verified 01/31/22 08:50) cyclobenzaprine [From Flexeril] Adverse Reaction (Verified 01/31/22 08:50) diphenhydramine [From Benadryl] Adverse Reaction (Verified 01/31/22 08:50) Rapid Heart Beat fluticasone furoate [From Breo Ellipta] Adverse Reaction (Verified 01/31/22 08:50) glatiramer (copolymer 1) [From Copaxone] Adverse Reaction (Verified 01/31/22 08:50) ibuprofen Adverse Reaction (Verified 01/31/22 08:50) interferon beta-1a [From Avonex] Adverse Reaction (Verified 01/31/22 08:50) ipratropium [From Combivent] Adverse Reaction (Verified 01/31/22 08:50) ketorolac [From Acular] Adverse Reaction (Verified 01/31/22 08:50) milnacipran [From Savella] Adverse Reaction (Verified 01/31/22 08:50) nicotine [From Nicotrol] Adverse Reaction (Verified 01/31/22 08:50) vilanterol [From Breo Ellipta] Adverse Reaction (Verified 01/31/22 08:50) Home Medications: Duloxetine HCl [Cymbalta] 90 mg PO DAILY 03/17/17 [History] Esomeprazole Magnesium [Nexium] 40 mg PO BID 03/17/17 [History] Gabapentin 400 mg [Neurontin 400 MG] 800 mg PO BID 03/17/17 [History] Montelukast Sodium [Singulair] 10 mg PO DAILY 03/17/17 [History] Promethazine HCl 25 mg [Phenergan 25 mg] 25 mg PO UD 03/17/17 [History] Propranolol HCl 20 mg PO BID 03/17/17 [History] levalbuterol HCL [Xopenex] 1.25 mg IH Q6HPRN PRN 03/17/17 [History] Amlodipine Besylate 2.5 mg PO DAILY 07/18/19 [History] Desloratadine 5 mg PO DAILY 07/18/19 [History] Lidocaine 5 patch DAILY 07/18/19 [History] Sitagliptin Phosphate [Januvia] 100 mg PO DAILY 07/18/19 [History] clonazePAM [Clonazepam] 2 tab PO DAILY 07/18/19 [History] Baclofen 1 tab PO BID 01/17/22 [History] Benzonatate 1 cap PO TID PRN 01/17/22 [History] Budesonide/Formoterol Fumarate [Budesonide-Formoterol 160-4.5] 10.2 gm IH BID 01/17/22 [History] Cholecalciferol (Vitamin D3) [Vitamin D] 1 tab PO QHS 01/17/22 [History] Ciclopirox Olamine [Ciclopirox] 1 applic TOP BID PRN 01/17/22 [History] Fluticasone Propionate [Flonase NASAL] 1 spray INTRANASAL BID 01/17/22 [History] Isosorbide Mononitrate [Isosorbide Mononitrate ER] 1 tab PO DAILY 01/17/22 [History] Losartan Potassium 0.5 tab PO DAILY 01/17/22 [History] Nitroglycerin 0.4 mg Tablet [Nitrostat 0.4 MG Tablet] 1 tab SL UD 01/17/22 [History] PANTOPRAZOLE 40 mg Tablet [Protonix 40MG Tablet] 1 tab PO BID 01/17/22 [History] Potassium Chloride 1 tab PO DAILY 01/17/22 [History] Pramipexole Di-HCl 0.5 mg [Mirapex 0.5 MG Tablet] 2 tab PO QHS 01/17/22 [History] Rituximab-Abbs [Truxima] 375 iv piggy IV UD 01/17/22 [History] Tizanidine HCl 4 mg [Zanaflex 4 MG] 2 tab PO HS 01/17/22 [History] Tramadol HCl 50 mg [Ultram 50 mg] 1 tab PO Q6H PRN 01/17/22 [History] Vitamin B Complex 1 cap PO DAILY 01/17/22 [History] Vitamin E 1 cap PO DAILY 01/17/22 [History] Hx Tetanus, Diphtheria Vaccination/Date Given: Yes (4 months ago) Hx Influenza Vaccination/Date Given: No Hx Pneumococcal Vaccination/Date Given: No Immunizations Up to Date: Yes Travel Risk - International Travel Have you traveled outside of the country in past 3 weeks: No - Coronavirus Screening Are you exhibiting any of the following symptoms?: No - Vaccine Status Have you recieved a Covid-19 vaccination: Yes Testing And Regulating Chief: Moderna - Vaccination Dates Date of 2cond Vaccination (if applicable): 05/2021 - Review of Systems Constitutional: Other (Somnolent), No Fever, No Chills Eyes: No Symptoms Ears, Nose, & Throat: No Symptoms Respiratory: No Cough, No Dyspnea Cardiac: No Chest Pain, No Edema, No Syncope Abdominal/Gastrointestinal: No Abdominal Pain, No Nausea, No Vomiting, No Diarrhea Genitourinary Symptoms: No Dysuria Musculoskeletal: No Back Pain, No Neck Pain Skin: No Rash Neurological: No Dizziness, No Focal Weakness, No Sensory Changes Psychological: No Symptoms Endocrine: No Symptoms All Other Systems: Reviewed and Negative - Past Medical History Pertinent Past Medical History: Yes Neurological History: Migraines, Peripheral Neuropathy, Other Cardiac History: High Cholesterol, Hypertension Respiratory History: Asthma, Sleep Apnea, Other Endocrine Medical History: Diabetes Type II Musculoskeletal History: Arthritis, Degenerative Disk Disease, Fractures, Other GI Medical History: Colitis, Esophageal Disorder, GERD, Irritable Bowel Psycho-Social History: Anxiety, Depression Other Medical History: Multiple Sclerosis, B Restless Leg Syndrome, GERD, L lower arm fracture (2007 and 2020), Acute Uveitis, T3 compression fracture, L1- S1 bulging discs, Back surgery (04/2015, 2017 or 2018 patient unable recall exactly), cholecystectomy, hysterectomy, scar tissue in R lung, fatty liver. Currently under treatment for: Abdominal pain, ankle weakness, anxiety disorder, arthrodesis status, Barrrett's esophagus, Bone Marrow Edema, Bronchiolitis, bronchitis, bursitis of left wrist, chronic back pain. Chronic use, continuous use of opiods,emphysema, fibromyalgia, neuropathy, - Past Surgical History Past Surgical History: Yes Cardiac: Cardiac Catheterization Gastrointestinal: Cholecystectomy Musculoskeletal: Orthopedic Surgery Female Surgical History: Hysterectomy Other Surgical History: CARPAL TUNNEL BILATERAL, Trigger finger x 2 on right hand. Lower back, - Social History Smoking Status: Current every day smoker How long have you smoked: 44 years Exposure to second hand smoke: Yes Drug Use: marijuana Patient Lives Alone: No - Nursing Vital Signs Nursing Vital Signs: Initial Vital Signs Temperature 98.6 F 01/31/22 09:26 Pulse Rate 59 L 01/31/22 09:26 Respiratory Rate 16 01/31/22 09:26 Blood Pressure 166/109 01/31/22 09:26 O2 Sat by Pulse Oximetry 98 01/31/22 09:26 Pain Scale Pain Intensity 6 - Physical Exam General Appearance: no apparent distress, alert Eye Exam: PERRL/EOMI, eyes nml inspection Ears, Nose, Throat Exam: normal ENT inspection, TMs normal, pharynx normal, moist mucous membranes Neck Exam: normal inspection, non-tender, supple, full range of motion Respiratory Exam: normal breath sounds, lungs clear, No respiratory distress Cardiovascular Exam: regular rate/rhythm, normal heart sounds, normal peripheral pulses Gastrointestinal/Abdomen Exam: soft, normal bowel sounds, No tenderness, No mass Back Exam: normal inspection, normal range of motion, No CVA tenderness, No vertebral tenderness Extremity Exam: normal inspection, normal range of motion, pelvis stable Neurologic Exam: alert, oriented x 3, cooperative, normal mood/affect, nml cereb ellar function, nml station & gait, sensation nml, No motor deficits Skin Exam: normal color, warm, dry, No rash Lymphatic Exam: No adenopathy SpO2: 98 - Course Nursing assessment & vital signs reviewed: Yes EKG Interpreted by Me: Sinus Rhythm Ordered Tests: Active Orders 24 hr Category Date Time Status [employer] Hand STAT Care 01/31/22 09:28 Active EKG-ER Only STAT Care 01/31/22 09:28 Active IV Insertion STAT Care 01/31/22 09:28 Active CHEST 1 VIEW (PORTABLE) Stat Exams 01/31/22 09:28 Completed HEAD WITHOUT CONTRAST [CT] Stat Exams 01/31/22 09:29 Completed CBC W DIFF Stat Lab 01/31/22 09:48 Completed CMP Stat Lab 01/31/22 09:48 Completed ETHYL ALCOHOL Stat Lab 01/31/22 09:48 Completed LIPASE Stat Lab 01/31/22 09:48 Completed NT PRO BNP Stat Lab 01/31/22 09:48 Completed POCT GLUCOSE Stat Lab 01/31/22 09:30 Completed TROPONIN Q3H Lab 01/31/22 09:48 Completed TROPONIN Q3H Lab 01/31/22 12:30 Ordered TROPONIN Q3H Lab 01/31/22 15:30 Ordered TROPONIN Q3H Lab 01/31/22 18:30 Ordered TROPONIN Q3H Lab 01/31/22 21:30 Ordered Urine Triage Profile Stat Lab 01/31/22 10:23 Completed Medication Summary Discontinued Medications Generic Name Dose Route Start Last Admin Trade Name Freq PRN Reason Stop Dose Admin Sodium Chloride 1,000 mls @ 999 mls/hr 01/31/22 09:28 01/31/22 11:25 Sodium Chloride 0.9% 1000 Ml IV 01/31/22 10:28 Infused .Q1H1M STA Infusion Sodium Chloride Confirm 01/31/22 09:46 Sodium Chloride 0.9% 1000 Ml Administered 01/31/22 09:47 Dose 1,000 mls @ ud .ROUTE .STK-MED ONE Naloxone HCl 1 mg 01/31/22 09:29 01/31/22 09:46 Naloxone Hcl 2mg/2 Ml 2 Mg/2 Ml Syr IV 01/31/22 09:30 Not Given STAT ONE Naloxone HCl Confirm 01/31/22 09:30 Naloxone Hcl 0.4 Mg/Ml Ml Administered 01/31/22 09:31 Dose 0.4 mg .ROUTE .STK-MED ONE Naloxone HCl 0.4 mg 01/31/22 09:46 01/31/22 09:48 Naloxone Hcl 0.4 Mg/Ml Ml IV 01/31/22 09:47 0.4 mg STAT ONE Administration Lab/Rad Data: Laboratory Result Diagrams 01/31/22 09:48 01/31/22 09:48 Laboratory Results 01/31/22 01/31/22 01/31/22 Range/Units 10:35 10:23 09:48 WBC (4.0-10.5) K/mm3 RBC (4.1-5.4) M/mm3 Hgb (12.0-16.0) gm/dl Hct (35-47) % MCV (78-100) fl MCH (26-32) pg MCHC (32-36) g/dl RDW (11.5-14.0) % Plt Count (150-450) K/mm3 MPV (7.5-11.0) fl Gran % (36.0-66.0) % Eos # (Auto) (0-0.5) Absolute Lymphs (auto) (1.0-4.6) Absolute Monos (auto) (0.0-1.3) Lymphocytes % (24.0-44.0) % Monocytes % (0.0-12.0) % Eosinophils % (0.00-5.0) % Basophils % (0.0-0.4) % Absolute Granulocytes (1.4-6.9) Basophils # (0-0.4) Sodium (137-145) mmol/L Potassium (3.5-5.1) mmol/L Chloride (98-107) mmol/L Carbon Dioxide (22-30) mmol/L Anion Gap (5-15) MEQ/L BUN (7-17) mg/dL Creatinine (0.52-1.04) mg/dL Estimated GFR ML/MIN Glucose (74-106) mg/dL POC Glucometer (74 to 106) mg/dL Calcium (8.4-10.2) mg/dL Total Bilirubin (0.2-1.3) mg/dL AST (14-36) U/L ALT (0-35) U/L Alkaline Phosphatase (38-126) U/L Troponin I < 0.012 (0.000-0.034) ng/mL NT-Pro-B Natriuret Pep (0-900) pg/mL Serum Total Protein (6.3-8.2) g/dL Albumin (3.5-5.0) g/dL Lipase (23-300) U/L Urinalys Dipstick Clnc Pending Urine Color YELLOW (YELLOW) Urine Appearance CLEAR (CLEAR) Urine pH 6.0 (5-6) Ur Specific [place] >=1.030 (1.005-1.025) POC Urine Protein Conf NEGATIVE (Negative) Urine Ketones NEGATIVE (NEGATIVE) Urine Nitrite NEGATIVE (NEGATIVE) Urine Bilirubin NEGATIVE (NEGATIVE) Urine Urobilinogen 0.2 (0-1) mg/dL Urine Leukocytes NEGATIVE (NEGATIVE) Urine WBC (Auto) NONE (0-5) /HPF Urine RBC (Auto) NONE (0-2) /HPF U Epithel Cells (Auto) RARE (FEW) /HPF Urine Bacteria (Auto) RARE (NEGATIVE) /HPF Urine RBC NEGATIVE (0-5) Fred/ul Urine Mucus (Auto) SLIGHT (NEGATIVE) /HPF Urine Glucose NEGATIVE (NEGATIVE) mg/dL Urine Opiates Level NEGATIVE (NEGATIVE) Ur Methadone NEGATIVE (NEGATIVE) Urine Barbiturates NEGATIVE (NEGATIVE) Ur Phencyclidine (PCP) NEGATIVE (NEGATIVE) Urine Amphetamine NEGATIVE (NEGATIVE) U Benzodiazepine Level NEGATIVE (NEGATIVE) Urine Cocaine NEGATIVE (NEGATIVE) Urine Marijuana (THC) NEGATIVE (NEGATIVE) Ethyl Alcohol (0-10) mg/dL 01/31/22 01/31/22 01/31/22 Range/Units 09:48 09:48 09:30 WBC 13.7 H (4.0-10.5) K/mm3 RBC 4.61 (4.1-5.4) M/mm3 Hgb 13.9 (12.0-16.0) gm/dl Hct 43.5 (35-47) % MCV 94.4 (78-100) fl MCH 30.2 (26-32) pg MCHC 32.0 (32-36) g/dl RDW 14.6 H (11.5-14.0) % Plt Count 309 (150-450) K/mm3 MPV 9.9 (7.5-11.0) fl Gran % 62.8 (36.0-66.0) % Eos # (Auto) 0.17 (0-0.5) Absolute Lymphs (auto) 3.73 (1.0-4.6) Absolute Monos (auto) 1.10 (0.0-1.3) Lymphocytes % 27.2 (24.0-44.0) % Monocytes % 8.0 (0.0-12.0) % Eosinophils % 1.2 (0.00-5.0) % Basophils % 0.8 (0.0-0.4) % Absolute Granulocytes 8.60 H (1.4-6.9) Basophils # 0.11 (0-0.4) Sodium 138 (137-145) mmol/L Potassium 4.0 (3.5-5.1) mmol/L Chloride 104 (98-107) mmol/L Carbon Dioxide 23 (22-30) mmol/L Anion Gap 15.1 H (5-15) MEQ/L BUN 8 (7-17) mg/dL Creatinine 0.44 L (0.52-1.04) mg/dL Estimated GFR > 60.0 ML/MIN Glucose 230 H (74-106) mg/dL POC Glucometer 221 H (74 to 106) mg/dL Calcium 8.7 (8.4-10.2) mg/dL Total Bilirubin 0.30 (0.2-1.3) mg/dL AST 24 (14-36) U/L ALT 23 (0-35) U/L Alkaline Phosphatase 120 (38-126) U/L Troponin I (0.000-0.034) ng/mL NT-Pro-B Natriuret Pep 61.6 (0-900) pg/mL Serum Total Protein 7.0 (6.3-8.2) g/dL Albumin 4.0 (3.5-5.0) g/dL Lipase 448 H (23-300) U/L Urinalys Dipstick Clnc Urine Color (YELLOW) Urine Appearance (CLEAR) Urine pH (5-6) Ur Specific [place] (1.005-1.025) POC Urine Protein Conf (Negative) Urine Ketones (NEGATIVE) Urine Nitrite (NEGATIVE) Urine Bilirubin (NEGATIVE) Urine Urobilinogen (0-1) mg/dL Urine Leukocytes (NEGATIVE) Urine WBC (Auto) (0-5) /HPF Urine RBC (Auto) (0-2) /HPF U Epithel Cells (Auto) (FEW) /HPF Urine Bacteria (Auto) (NEGATIVE) /HPF Urine RBC (0-5) Frde/ul Urine Mucus (Auto) (NEGATIVE) /HPF Urine Glucose (NEGATIVE) mg/dL Urine Opiates Level (NEGATIVE) Ur Methadone (NEGATIVE) Urine Barbiturates (NEGATIVE) Ur Phencyclidine (PCP) (NEGATIVE) Urine Amphetamine (NEGATIVE) U Benzodiazepine Level (NEGATIVE) Urine Cocaine (NEGATIVE) Urine Marijuana (THC) (NEGATIVE) Ethyl Alcohol < 10 (0-10) mg/dL - Progress Progress: improved Progress Note: 01/31/22 10:44 Differential diagnosis includes head bleed, trauma, drug use, infection, electrolyte abnormality. We will obtain basic labs, UDS, UA, head CT, chest x-ray. Reevaluation: Patient not very much improved after Narcan. Head CT, chest x-ray are clear. Basic labs unremarkable along with EKG. UA and UDS still pending. Will continue to observe patient. 01/31/22 12:00 Imaging returned negative. Patient feels improved here. She was observed for 2 -1/2 hours. Troponin, EKG were negative as well. Overall, I do believe the patient is safe for discharge home in the care of the family member. She should not drive today. She should follow-up with her PCP for reexam in 24 to 48 hours. I do believe it is most likely due to her polypharmacy of being on several narcotics and benzodiazepines. I did discuss this with the patient. She states her understanding will follow-up for medication adjustment as described. Counseled pt/family regarding: lab results, diagnosis, need for follow-up, rad results - Departure Departure Disposition: Home Clinical Impression: Syncopal episodes Condition: Stable Critical Care Time: No Referrals: JOSIE COOLEY FNP [Primary Care Provider] - Follow up/PCP as directed Instructions: Syncope (Fainting) (DC)
[2022-01-31 10:51] LABS: Amphetamine,Urine NEGATIVE (NEGATIVE); Barbiturate,Urine NEGATIVE (NEGATIVE); Benzodiazepine,Urine NEGATIVE (NEGATIVE); Cocaine,Urine NEGATIVE (NEGATIVE); Methadone,Urine NEGATIVE (NEGATIVE); Opiate,Urine NEGATIVE (NEGATIVE); PCP,Urine NEGATIVE (NEGATIVE); THC,Urine NEGATIVE (NEGATIVE)
[2022-01-31 11:20] LABS: Epithelial Cells RARE /HPF (FEW); Mucus SLIGHT /HPF (NEGATIVE)
[2022-01-31 11:23] LABS: Appearance CLEAR (CLEAR); Bilirubin NEGATIVE (NEGATIVE); Glucose NEGATIVE (NEGATIVE); Ketones NEGATIVE (NEGATIVE)
[2022-01-31 11:24] LABS: Bacteria RARE /HPF (NEGATIVE); Nitrite NEGATIVE (NEGATIVE); Protein,Urine Dip NEGATIVE (Negative); RBC NEGATIVE Ery/ul (0-5); Specific Gravity >=1.030 (1.005-1.025); Urobilinogen 0.2 mg/dL (0-1)
[2022-01-31 12:06] VITALS: BP 175/90; PULSE 57
[2022-01-31 12:30] VITALS: O2SAT 98
[2022-01-31 13:45] LABS: Dipstick done @ ? MAIN LAB
== END 2022-01-31 12:16 | disposition home or self-care (01) ==
LOC: ED 09:26
DX: R55 Syncope and collapse (principal); R41.82 Altered mental status, unspecified; Z79.891 Long term (current) use of opiate analgesic; E78.5 Hyperlipidemia, unspecified; I10 Essential (primary) hypertension; E11.9 Type 2 diabetes mellitus without complications; G35 Multiple sclerosis; Z79.84 Long term (current) use of oral hypoglycemic drugs; Z79.899 Other long term (current) drug therapy; Z72.0 Tobacco use
CPT/HCPCS: 36000; 36415; 70450; 71045; 80053; 80307; 81001; 82947; 83690; 83880; 84484; 85025; 93005; 93041; 96360; 96374; 99285; G0480; J2310

== ENCOUNTER 2022-02-14 21:28 | Emergency (ER) | payer MEDICARE, OTHER ==
[2022-02-14 22:08] LABS: Absolute Neutrophil Ct (ANC) 10.21 (1.4-6.9); Basophil (Absolute #) 0.12 (0-0.4); Eosinophil % 1.6 % (0.00-5.0); Eosinophil (Absolute #) 0.26 (0-0.5); Hematocrit 42.4 % (35-47); Hemoglobin 13.8 gm/dl (12.0-16.0); Lymphocyte (Absolute #) 4.75 (1.0-4.6); Lymphocytes % 29.1 % (24.0-44.0); Mean Cell Volume 91.2 fl (78-100); Mean Corpuscular Hemoglobin 29.7 pg (26-32); Mean Corpuscular Hgb Concent. 32.5 g/dl (32-36); Mean Platelet Volume 10.2 fl (7.5-11.0); Monocyte (Absolute #) 0.99 (0.0-1.3); Monocytes % 6.1 % (0.0-12.0); Neutrophil % 62.5 % (36.0-66.0); Platelet Count 262 K/mm3 (150-450); Red Blood Count 4.65 M/mm3 (4.1-5.4); Red Cell Distribution Width 14.5 % (11.5-14.0); White Blood Count 16.3 K/mm3 (4.0-10.5)
--- NOTE | 2022-02-14 22:15 | ERPHSYRPT ---
- History of Present Illness Source: patient, police Exam Limitations: other (Poor historian) Patient Subjective Stated Complaint: DEPRESSED, GIVING UP THINGS (HER HUSBANDS THINGS) TO HIS KIDS WHO LAST APRIL Triage Nursing Assessment: Pt is depressed, her last April and his youngest daughter just got in contact with her 2 days ago, as she was unaware her dad had passed, and was wanting to know things and wanted personal items of her father's. Pt wrote a suicide note tonmaliha and pt thinks her sister called the police brynn. Pt currently lives with her boyfriend. Pt took 4 tizanidine pills tonight, 4mg each. Pt is willing to be here and get help. Pt is alert and oriented x3, calm and cooperative. Before triage finished, pt was lan ramos. Physician History: 56 yo wf w suicidal ideation who took 4x4mg po Tizantidine at approx 21:00. She usually takes 2x4mg tabs at night. Pt states that she is depressed and wrote a suicide note. She is a little sleepy but is alert/oriented x3 w good airway. Timing/Duration: other (21:00) Severity of Symptoms-Max: moderate Severity of Symptoms-Current: moderate Context related to: other (Pt states depressed) Suicidal thoughts: gesture, ingestion Associated Symptoms: depressed Previous symptoms: same symptoms as today Allergies/Adverse Reactions: fluticasone Allergy (Intermediate, Verified 02/14/22 21:48) Difficulty Breathing leflunomide Allergy (Intermediate, Verified 02/14/22 21:48) Rash meloxicam Allergy (Intermediate, Verified 02/14/22 21:48) Rash umeclidinium Allergy (Intermediate, Verified 02/14/22 21:48) Difficulty Breathing adhesive tape Allergy (Mild, Verified 02/14/22 21:48) Rash Penicillins Allergy (Mild, Verified 02/14/22 21:48) acetaminophen [From Percocet] Allergy (Verified 02/14/22 21:48) alendronate sodium [From Fosamax] Allergy (Verified 02/14/22 21:48) azithromycin [From Zithromax Z-Ciro] Allergy (Verified 02/14/22 21:48) Itching celecoxib [From Celebrex] Allergy (Verified 02/14/22 21:48) payan Allergy (Verified 02/14/22 21:48) codeine Allergy (Verified 02/14/22 21:48) moxifloxacin [From Vigamox] Allergy (Verified 02/14/22 21:48) nortriptyline Allergy (Verified 02/14/22:48) oxycodone [From Percocet] Allergy (Verified 02/14/22 21:48) risedronate sodium [From Actonel] Allergy (Verified 02/14/22 21:48) ropinirole [From Requip] Allergy (Verified 02/14/22:48) rosuvastatin [From Crestor] Allergy (Verified 02/14/22 21:48) solifenacin [From Vesicare] Allergy (Verified 02/14/22 21:48) Ndyszra-[id number]-[id number] Reductase Inhibitor Allergy (Verified 02/14/22:48) Rash strawberry Allergy (Verified 02/14/22:48) tolterodine [From Detrol] Allergy (Verified 02/14/22 21:48) Hives topiramate [From Topamax] Allergy (Verified 02/14/22:48) Hives mirabegron Adverse Reaction (Severe, Verified 02/14/22:48) metronidazole Adverse Reaction (Intermediate, Verified 02/14/22:48) Nausea and Vomiting albuterol Adverse Reaction (Verified 02/14/22 21:48) atorvastatin [From Lipitor] Adverse Reaction (Verified 02/14/22 21:48) cyclobenzaprine [From Flexeril] Adverse Reaction (Verified 02/14/22 21:48) diphenhydramine [From Benadryl] Adverse Reaction (Verified 02/14/22 21:48) Rapid Heart Beat fluticasone furoate [From Breo Ellipta] Adverse Reaction (Verified 02/14/22 21:48) glatiramer (copolymer 1) [From Copaxone] Adverse Reaction (Verified 02/14/22 21:48) ibuprofen Adverse Reaction (Verified 02/14/22:48) interferon beta-1a [From Avonex] Adverse Reaction (Verified 02/14/22 21:48) ipratropium [From Combivent] Adverse Reaction (Verified 02/14/22 21:48) ketorolac [From Acular] Adverse Reaction (Verified 02/14/22 21:48) milnacipran [From Savella] Adverse Reaction (Verified 02/14/22 21:48) nicotine [From Nicotrol] Adverse Reaction (Verified 02/14/22 21:48) vilanterol [From Breo Ellipta] Adverse Reaction (Verified 02/14/22 21:48) Home Medications: Duloxetine HCl [Cymbalta] 90 mg PO DAILY 03/17/17 [History] Gabapentin 400 mg [Neurontin 400 MG] 800 mg PO BID 03/17/17 [History] Montelukast Sodium [Singulair] 10 mg PO DAILY 03/17/17 [History] Propranolol HCl 20 mg PO BID 03/17/17 [History] levalbuterol HCL [Xopenex] 1.25 mg IH Q6HPRN PRN 03/17/17 [History] Amlodipine Besylate 2.5 mg PO DAILY 07/18/19 [History] Desloratadine 5 mg PO DAILY 07/18/19 [History] Lidocaine 5 patch DAILY 07/18/19 [History] clonazePAM [Clonazepam] 2 tab PO DAILY 07/18/19 [History] Baclofen 1 tab PO BID 01/17/22 [History] Benzonatate 1 cap PO TID PRN 01/17/22 [History] Budesonide/Formoterol Fumarate [Budesonide-Formoterol 160-4.5] 10.2 gm IH BID 01/17/22 [History] Cholecalciferol (Vitamin D3) [Vitamin D] 1 tab PO QHS 01/17/22 [History] Ciclopirox Olamine [Ciclopirox] 1 applic TOP BID PRN 01/17/22 [History] Fluticasone Propionate [Flonase NASAL] 1 spray INTRANASAL BID 01/17/22 [History] Isosorbide Mononitrate [Isosorbide Mononitrate ER] 1 tab PO DAILY 01/17/22 [History] Losartan Potassium 0.5 tab PO DAILY 01/17/22 [History] Nitroglycerin 0.4 mg Tablet [Nitrostat 0.4 MG Tablet] 1 tab SL UD 01/17/22 [History] PANTOPRAZOLE 40 mg Tablet [Protonix 40MG Tablet] 1 tab PO BID 01/17/22 [History] Potassium Chloride 1 tab PO BID 01/17/22 [History] Pramipexole Di-HCl 0.5 mg [Mirapex 0.5 MG Tablet] 2 tab PO QHS 01/17/22 [History] Tizanidine HCl 4 mg [Zanaflex 4 MG] 2 tab PO HS 01/17/22 [History] Tramadol HCl 50 mg [Ultram 50 mg] 1 tab PO Q6H PRN 01/17/22 [History] Vitamin B Complex 1 cap PO DAILY 01/17/22 [History] Vitamin E 1 cap PO DAILY 01/17/22 [History] Hx Tetanus, Diphtheria Vaccination/Date Given: Yes Hx Influenza Vaccination/Date Given: Yes Hx Pneumococcal Vaccination/Date Given: Yes Immunizations Up to Date: Yes Travel Risk - International Travel Have you traveled outside of the country in past 3 weeks: No - Coronavirus Screening Are you exhibiting any of the following symptoms?: No Close contact with a COVID-19 positive Pt in past 14-21 Days: No - Vaccine Status Have you recieved a Covid-19 vaccination: Yes [employer]: Moderna - Vaccination Dates Date of 2cond Vaccination (if applicable): . - Past Medical History Pertinent Past Medical History: Yes Neurological History: Migraines, Peripheral Neuropathy, Other ENT History: Cataracts Cardiac History: High Cholesterol, Hypertension Respiratory History: Asthma, Sleep Apnea, Other Endocrine Medical History: Diabetes Type II Musculoskeletal History: Arthritis, Degenerative Disk Disease, Fractures, Other GI Medical History: Colitis, Esophageal Disorder, GERD, Irritable Bowel Psycho-Social History: Anxiety, Depression Other Medical History: Multiple Sclerosis, B Restless Leg Syndrome, GERD, L lower arm fracture (2007 and 2020), Acute Uveitis, T3 compression fracture, L1- S1 bulging discs, Back surgery (04/2015, 2018 or 2019 patient unable recall exactly), cholecystectomy, hysterectomy, scar tissue in R lung, fatty liver. Currently under treatment for: Abdominal pain, ankle weakness, anxiety disorder, arthrodesis status, Barrrett's esophagus, Bone Marrow Edema, Bronchiolitis, bronchitis, bursitis of left wrist, chronic back pain. Chronic use, continuous use of opiods,emphysema, fibromyalgia, neuropathy, - Past Surgical History Past Surgical History: Yes Cardiac: Cardiac Catheterization Gastrointestinal: Cholecystectomy Musculoskeletal: Orthopedic Surgery Female Surgical History: Hysterectomy Other Surgical History: CARPAL TUNNEL BILATERAL, Trigger finger x 2 on right hand. Lower back, - Social History Smoking Status: Current every day smoker How long have you smoked: 44 yrs Exposure to second hand smoke: Yes Drug Use: marijuana, bath salts, methamphetamines Patient Lives Alone: No Significant Family History: no pertinent family hx - Review of Systems Constitutional: No Symptoms Eyes: No Symptoms Ears, Nose, & Throat: No Symptoms Respiratory: No Symptoms Cardiac: No Symptoms Abdominal/Gastrointestinal: No Symptoms Genitourinary Symptoms: No Symptoms Musculoskeletal: No Symptoms Skin: No Symptoms Neurological: No Symptoms Psychological: No Symptoms, Depression, Suicidal Ideations Endocrine: No Symptoms Hematologic/Lymphatic: No Symptoms Immunological/Allergic: No Symptoms - Nursing Vital Signs Nursing Vital Signs: Initial Vital Signs Temperature 98.5 F 02/14/22 21:29 Pulse Rate 77 02/14/22 21:29 Respiratory Rate 18 02/14/22 21:29 Blood Pressure 138/82 02/14/22 21:29 O2 Sat by Pulse Oximetry 95 02/14/22 21:29 Pain Scale Pain Intensity 0 WNL - Physical Exam General Appearance: no apparent distress (Sleepy) Eyes, Ears, Nose, Throat Exam: normal ENT inspection, TMs normal, pharynx normal, moist mucous membranes Neck Exam: normal inspection, non-tender, supple, full range of motion, No Brudzinski, No Kernig's, No meningismus, No carotid bruit Respiratory Exam: normal breath sounds, lungs clear, airway intact Cardiovascular Exam: regular rate/rhythm, normal heart sounds, normal peripheral pulses, capillary refill <2 sec, No murmur Gastrointestinal/Abdominal Exam: soft, normal bowel sounds, No tenderness Extremities Exam: normal inspection, normal range of motion Peripheral Pulses: carotid (R): 2+, carotid (L): 2+ Current Suicidality: has suicide plan Neurological Exam: depressed affect (Somnulant ), disoriented x 3 Appearance: no memory impairment Behavior/Eye Contact/Speech: cooperative, avoids eye contact Skin Exam: normal color, warm, dry, No rash SpO2 Interpretation: normal SpO2: 95 O2 Delivery: Room Air - Course Nursing assessment & vital signs reviewed: Yes EKG Interpreted by Me: RATE (NSR/Rate67/Prolonged QTc/Flat T waves/Low voltage/No acute ST abnormalities) Ordered Tests: Active Orders 24 hr Category Date Time Status EKG-ER Only STAT Care 02/14/22 22:09 Active ACETAMINOPHEN Stat Lab 02/14/22 22:00 Completed CBC W DIFF Stat Lab 02/14/22 22:00 Completed CMP Stat Lab 02/14/22 22:00 Completed ETHYL ALCOHOL Stat Lab 02/14/22 22:00 Completed SALICYLATE Stat Lab 02/14/22 22:00 Completed TROPONIN Q3H Lab 02/15/22 01:14 Completed TROPONIN Q3H Lab 02/15/22 04:00 Ordered TROPONIN Q3H Lab 02/15/22 07:00 Ordered TROPONIN Q3H Lab 02/15/22 10:00 Ordered TROPONIN Stat Lab 02/14/22 22:00 Completed Urine Triage Profile Stat Lab 02/14/22 22:20 Completed Lab/Rad Data: Laboratory Result Diagrams 02/14/22 22:00 02/14/22 22:00 Laboratory Results 02/15/22 02/14/22 02/14/22 Range/Units 01:14 22:34 22:20 WBC (4.0-10.5) K/mm3 RBC (4.1-5.4) M/mm3 Hgb (12.0-16.0) gm/dl Hct (35-47) % MCV (78-100) fl MCH (26-32) pg MCHC (32-36) g/dl RDW (11.5-14.0) % Plt Count (150-450) K/mm3 MPV (7.5-11.0) fl Gran % (36.0-66.0) % Eos # (Auto) (0-0.5) Absolute Lymphs (auto) (1.0-4.6) Absolute Monos (auto) (0.0-1.3) Lymphocytes % (24.0-44.0) % Monocytes % (0.0-12.0) % Eosinophils % (0.00-5.0) % Basophils % (0.0-0.4) % Absolute Granulocytes (1.4-6.9) Basophils # (0-0.4) Sodium (137-145) mmol/L Potassium (3.5-5.1) mmol/L Chloride (98-107) mmol/L Carbon Dioxide (22-30) mmol/L Anion Gap (5-15) MEQ/L BUN (7-17) mg/dL Creatinine (0.52-1.04) mg/dL Estimated GFR ML/MIN Glucose (74-106) mg/dL Calcium (8.4-10.2) mg/dL Total Bilirubin (0.2-1.3) mg/dL AST (14-36) U/L ALT (0-35) U/L Alkaline Phosphatase (38-126) U/L Troponin I < 0.012 (0.000-0.034) ng/mL Serum Total Protein (6.3-8.2) g/dL Albumin (3.5-5.0) g/dL Urinalys Dipstick Clnc Urine Color (YELLOW) Urine Appearance (CLEAR) Urine pH (5-6) Ur Specific [place] (1.005-1.025) POC Urine Protein Conf (Negative) Urine Ketones (NEGATIVE) Urine Nitrite (NEGATIVE) Urine Bilirubin (NEGATIVE) Urine Urobilinogen (0-1) mg/dL Urine Leukocytes (NEGATIVE) Urine WBC (Auto) (0-5) /HPF Urine RBC (Auto) (0-2) /HPF U Epithel Cells (Auto) (FEW) /HPF Urine Bacteria (Auto) (NEGATIVE) /HPF Urine RBC (0-5) Fred/ul Urine Mucus (Auto) (NEGATIVE) /HPF Ur Culture Indicated? Urine Glucose (NEGATIVE) mg/dL Salicylates (2-20) mg/dL Urine Opiates Level NEGATIVE (NEGATIVE) Ur Methadone NEGATIVE (NEGATIVE) Acetaminophen (10-30) ug/ml Urine Barbiturates NEGATIVE (NEGATIVE) Ur Phencyclidine (PCP) NEGATIVE (NEGATIVE) Urine Amphetamine NEGATIVE (NEGATIVE) U Benzodiazepine Level NEGATIVE (NEGATIVE) Urine Cocaine NEGATIVE (NEGATIVE) Urine Marijuana (THC) NEGATIVE (NEGATIVE) Ethyl Alcohol (0-10) mg/dL Influenza Type A Ag NEGATIVE (NEGATIVE) Influenza Type B Ag NEGATIVE (NEGATIVE) RSV (PCR) NEGATIVE (Negative) SARS-CoV-2 (PCR) NEGATIVE (NEGATIVE) 02/14/22 02/14/22 02/14/22 Range/Units 22:20 22:00 22:00 WBC 16.3 H (4.0-10.5) K/mm3 RBC 4.65 (4.1-5.4) M/mm3 Hgb 13.8 (12.0-16.0) gm/dl Hct 42.4 (35-47) % MCV 91.2 (78-100) fl MCH 29.7 (26-32) pg MCHC 32.5 (32-36) g/dl RDW 14.5 H (11.5-14.0) % Plt Count 262 (150-450) K/mm3 MPV 10.2 (7.5-11.0) fl Gran % 62.5 (36.0-66.0) % Eos # (Auto) 0.26 (0-0.5) Absolute Lymphs (auto) 4.75 H (1.0-4.6) Absolute Monos (auto) 0.99 (0.0-1.3) Lymphocytes % 29.1 (24.0-44.0) % Monocytes % 6.1 (0.0-12.0) % Eosinophils % 1.6 (0.00-5.0) % Basophils % 0.7 (0.0-0.4) % Absolute Granulocytes 10.21 H (1.4-6.9) Basophils # 0.12 (0-0.4) Sodium 136 L (137-145) mmol/L Potassium 3.9 (3.5-5.1) mmol/L Chloride 103 (98-107) mmol/L Carbon Dioxide 24 (22-30) mmol/L Anion Gap 13.1 (5-15) MEQ/L BUN 8 (7-17) mg/dL Creatinine 0.39 L (0.52-1.04) mg/dL Estimated GFR > 60.0 ML/MIN Glucose 183 H (74-106) mg/dL Calcium 9.3 (8.4-10.2) mg/dL Total Bilirubin 0.40 (0.2-1.3) mg/dL AST 26 (14-36) U/L ALT 17 (0-35) U/L Alkaline Phosphatase 106 (38-126) U/L Troponin I < 0.012 (0.000-0.034) ng/mL Serum Total Protein 6.7 (6.3-8.2) g/dL Albumin 3.9 (3.5-5.0) g/dL Urinalys Dipstick Clnc MAIN LAB Urine Color YELLOW (YELLOW) Urine Appearance CLEAR (CLEAR) Urine pH 7.0 (5-6) Ur Specific [place] 1.020 (1.005-1.025) POC Urine Protein Conf NEGATIVE (Negative) Urine Ketones NEGATIVE (NEGATIVE) Urine Nitrite NEGATIVE (NEGATIVE) Urine Bilirubin NEGATIVE (NEGATIVE) Urine Urobilinogen 1 (0-1) mg/dL Urine Leukocytes NEGATIVE (NEGATIVE) Urine WBC (Auto) 3-5 (0-5) /HPF Urine RBC (Auto) 0-2 (0-2) /HPF U Epithel Cells (Auto) FEW (FEW) /HPF Urine Bacteria (Auto) RARE (NEGATIVE) /HPF Urine RBC NEGATIVE (0-5) Fred/ul Urine Mucus (Auto) SLIGHT (NEGATIVE) /HPF Ur Culture Indicated? NO Urine Glucose NEGATIVE (NEGATIVE) mg/dL Salicylates < 1.0 L (2-20) mg/dL Urine Opiates Level (NEGATIVE) Ur Methadone (NEGATIVE) Acetaminophen < 10 L (10-30) ug/ml Urine Barbiturates (NEGATIVE) Ur Phencyclidine (PCP) (NEGATIVE) Urine Amphetamine (NEGATIVE) U Benzodiazepine Level (NEGATIVE) Urine Cocaine (NEGATIVE) Urine Marijuana (THC) (NEGATIVE) Ethyl Alcohol < 10 (0-10) mg/dL Influenza Type A Ag (NEGATIVE) Influenza Type B Ag (NEGATIVE) RSV (PCR) (Negative) SARS-CoV-2 (PCR) (NEGATIVE) - Progress Progress: improved Progress Note: 02/15/22 03:45 Pt oriented x3 during her entire stay w good airway. She did require 2L O2 NC for sats in low 90's when sleeping. Pt states that she is supposed to be getting home O2 in the near future. There was no ectopy observed during entire stay. 4Hr observation required by [place] [facility]ison control was exceeded. Pt in stable condition for transfer for suicidal ideation inpt psych treatment. 02/15/22 03:49 Counseled pt/family regarding: lab results, diagnosis, need for follow-up - Departure Departure Disposition: Transfer Clinical Impression: Suicidal ideation Condition: Stable Critical Care Time: No Referrals: JOSIE COOLEY FNP [Primary Care Provider] - Follow up/PCP as directed
[2022-02-14 22:37] LABS: ACETAMINOPHEN < 10 ug/ml (10-30); ALBUMIN 3.9 g/dL (3.5-5.0); ALKALINE PHOSPHATASE 106 U/L (38-126); ANION GAP 13.1 MEQ/L (5-15); BLOOD UREA NITROGEN 8 mg/dL (7-17); CHLORIDE 103 mmol/L (98-107); Calcium 9.3 mg/dL (8.4-10.2); Carbon Dioxide 24 mmol/L (22-30); Creatinine 1 0.39 mg/dL (0.52-1.04); EST GLOMERULAR FILTRATION RATE > 60.0 ML/MIN; ETHYL ALCOHOL < 10 mg/dL (0-10); Glucose 183 mg/dL (74-106); Potassium 3.9 mmol/L (3.5-5.1); SALICYLATE < 1.0 mg/dL (2-20); SGOT/AST 26 U/L (14-36); SGPT/ALT 17 U/L (0-35); SODIUM 136 mmol/L (137-145); TROPONIN < 0.012 ng/mL (0.000-0.034); Total Protein 6.7 g/dL (6.3-8.2)
[2022-02-14 22:44] LABS: Appearance CLEAR (CLEAR); Bacteria RARE /HPF (NEGATIVE); Bilirubin NEGATIVE (NEGATIVE); Epithelial Cells FEW /HPF (FEW); Glucose NEGATIVE (NEGATIVE); Ketones NEGATIVE (NEGATIVE); Mucus SLIGHT /HPF (NEGATIVE); RBC 0-2 /HPF (0-2); RBC NEGATIVE Ery/ul (0-5)
[2022-02-14 22:45] LABS: Dipstick done @ ? MAIN LAB; Nitrite NEGATIVE (NEGATIVE); Protein,Urine Dip NEGATIVE (Negative); Urine Cultured Indicated? NO; Urobilinogen 1 mg/dL (0-1)
[2022-02-14 22:53] LABS: Amphetamine,Urine NEGATIVE (NEGATIVE); Barbiturate,Urine NEGATIVE (NEGATIVE); Benzodiazepine,Urine NEGATIVE (NEGATIVE); Cocaine,Urine NEGATIVE (NEGATIVE); Methadone,Urine NEGATIVE (NEGATIVE); Opiate,Urine NEGATIVE (NEGATIVE); PCP,Urine NEGATIVE (NEGATIVE); THC,Urine NEGATIVE (NEGATIVE)
[2022-02-14 23:13] LABS: INFLUENZA A NEGATIVE (NEGATIVE); INFLUENZA B NEGATIVE (NEGATIVE); RESPIRATORY SYNCTIAL VIRUS NEGATIVE (Negative); SARS-CoV-2 Xpert Express NEGATIVE (NEGATIVE)
[2022-02-15 03:49] VITALS: O2SAT 95
[2022-02-15 04:15] VITALS: BP 177/81; PULSE 83
== END 2022-02-15 04:19 ==
LOC: ED 21:28
DX: R45.851 Suicidal ideations (principal); T42.8X2A Poisoning by antiparkinsonism drugs and other central muscle-tone depressants, intentional self-harm, initial encounter; R40.0 Somnolence; Z63.4 Disappearance and death of family member; E78.5 Hyperlipidemia, unspecified; I10 Essential (primary) hypertension; E11.42 Type 2 diabetes mellitus with diabetic polyneuropathy; F32.A Depression, unspecified; G35 Multiple sclerosis; Z72.0 Tobacco use; Z79.891 Long term (current) use of opiate analgesic; Z79.899 Other long term (current) drug therapy
CPT/HCPCS: 0241U; 36415; 80053; 80307; 81015; 84484; 85025; 93005; 99285; G0480

== ENCOUNTER 2022-07-12 10:59 | Emergency (ER) | payer MEDICARE, OTHER ==
--- NOTE | 2022-07-12 11:00 | ERPHSYRPT ---
- History of Present Illness Time Seen by Provider: 07/12/22 11:00 Historian: patient Exam Limitations: no limitations Physician History: This is a 56-year-old obese white female who presents with anterior, nonradiating substernal, central chest pain described as pressure or "an elephant sitting on her chest" that began at 4 PM yesterday. Patient has had a cardiac catheterization in the past but they were no significant cardiac vessel lesions necessitating stenting per her report. 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 Maguire. Patient states she also has some occasional shortness of breath and has had intermittent coughing of greenish sputum recently. Patient has multiple pain complaints including headache and body aches. Patient does have a history of migraine headaches, peripheral neuropathy, hyperlipidemia, hypertension, asthma, sleep apnea, gastroesophageal reflux disease, DJD, anxiety issues, depression with suicide attempt in the last 5 to 6 months, Mariee's esophagus, fibromyalgia and chronic back pain. She has not had any nausea vomiting or diar víctor. She has no known fevers. She is a current daily smoker cigarettes. Timing/Duration: yesterday Activities at Onset: none Quality: aching, pressure Location: substernal, central Chest Pain Radiation: no radiation Severity of Pain-Max: mild (To moderate) Severity of Pain-Current: mild (To moderate) Modifying Factors: Improves With: nothing Associated Symptoms: cough, headache, back pain Prior Chest Pain/Cardiac Workup: cardiac cath (Negative in the past) Nitro Today/Relief: no nitro taken today Aspirin Treatment Today: no aspirin today Allergies/Adverse Reactions: fluticasone Allergy (Intermediate, Verified 02/14/22 21:48) Difficulty Breathing leflunomide Allergy (Intermediate, Verified 02/14/22 21:48) Rash meloxicam Allergy (Intermediate, Verified 02/14/22 21:48) Rash umeclidinium Allergy (Intermediate, Verified 02/14/22 21:48) Difficulty Breathing adhesive tape Allergy (Mild, Verified 02/14/22 21:48) Rash Penicillins Allergy (Mild, Verified 02/14/22 21:48) acetaminophen [From Percocet] Allergy (Verified 02/14/22 21:48) alendronate sodium [From Fosamax] Allergy (Verified 02/14/22 21:48) azithromycin [From Zithromax Z-Ciro] Allergy (Verified 02/14/22 21:48) Itching celecoxib [From Celebrex] Allergy (Verified 02/14/22 21:48) payan Allergy (Verified 02/14/22 21:48) codeine Allergy (Verified 02/14/22 21:48) moxifloxacin [From Vigamox] Allergy (Verified 02/14/22 21:48) nortriptyline Allergy (Verified 02/14/22 21:48) oxycodone [From Percocet] Allergy (Verified 02/14/22 21:48) risedronate sodium [From Actonel] Allergy (Verified 02/14/22 21:48) ropinirole [From Requip] Allergy (Verified 02/14/22 21:48) rosuvastatin [From Crestor] Allergy (Verified 02/14/22 21:48) solifenacin [From Vesicare] Allergy (Verified 02/14/22 21:48) Lcyzjlo-YEX-GbV Reductase Inhibitor Allergy (Verified 02/14/22 21:48) Rash strawberry Allergy (Verified 02/14/22 21:48) tolterodine [From Detrol] Allergy (Verified 02/14/22 21:48) Hives topiramate [From Topamax] Allergy (Verified 02/14/22 21:48) Hives mirabegron Adverse Reaction (Severe, Verified 02/14/22 21:48) metronidazole Adverse Reaction (Intermediate, Verified 02/14/22 21:48) Nausea and Vomiting albuterol Adverse Reaction (Verified 02/14/22 21:48) atorvastatin [From Lipitor] Adverse Reaction (Verified 02/14/22 21:48) cyclobenzaprine [From Flexeril] Adverse Reaction (Verified 02/14/22 21:48) diphenhydramine [From Benadryl] Adverse Reaction (Verified 02/14/22 21:48) Rapid Heart Beat fluticasone furoate [From Breo Ellipta] Adverse Reaction (Verified 02/14/22 2 1:48) glatiramer (copolymer 1) [From Copaxone] Adverse Reaction (Verified 02/14/22 21:48) ibuprofen Adverse Reaction (Verified 02/14/22 21:48) interferon beta-1a [From Avonex] Adverse Reaction (Verified 02/14/22 21:48) ipratropium [From Combivent] Adverse Reaction (Verified 02/14/22 21:48) ketorolac [From Acular] Adverse Reaction (Verified 02/14/22 21:48) milnacipran [From Savella] Adverse Reaction (Verified 02/14/22 21:48) nicotine [From Nicotrol] Adverse Reaction (Verified 02/14/22 21:48) vilanterol [From Breo Ellipta] Adverse Reaction (Verified 02/14/22 21:48) Home Medications: Duloxetine HCl [Cymbalta] 90 mg PO DAILY 03/17/17 [History] Gabapentin [Neurontin 400 MG] 800 mg PO BID 03/17/17 [History] Montelukast Sodium [Singulair] 10 mg PO DAILY 03/17/17 [History] Propranolol HCl 20 mg PO BID 03/17/17 [History] levalbuterol HCL [Xopenex] 1.25 mg IH Q6HPRN PRN 03/17/17 [History] Amlodipine Besylate 2.5 mg PO DAILY 07/18/19 [History] Desloratadine 5 mg PO DAILY 07/18/19 [History] Lidocaine 5 patch DAILY 07/18/19 [History] clonazePAM [Clonazepam] 2 tab PO DAILY 07/18/19 [History] Baclofen 1 tab PO BID 01/17/22 [History] Benzonatate 1 cap PO TID PRN 01/17/22 [History] Budesonide/Formoterol Fumarate [Budesonide-Formoterol 160-4.5] 10.2 gm IH BID 01/17/22 [History] Cholecalciferol (Vitamin D3) [Vitamin D] 1 tab PO QHS 01/17/22 [History] Ciclopirox Olamine [Ciclopirox] 1 applic TOP BID PRN 01/17/22 [History] Fluticasone Propionate [Flonase NASAL] 1 spray INTRANASAL BID 01/17/22 [History] Isosorbide Mononitrate [Isosorbide Mononitrate ER] 1 tab PO DAILY 01/17/22 [History] Losartan Potassium 0.5 tab PO DAILY 01/17/22 [History] Nitroglycerin 0.4 mg Tablet [Nitrostat 0.4 MG Tablet] 1 tab SL UD 01/17/22 [History] PANTOPRAZOLE 40 mg Tablet [Protonix 40MG Tablet] 1 tab PO BID 01/17/22 [History] Potassium Chloride 1 tab PO BID 01/17/22 [History] Pramipexole Di-HCl 0.5 mg [Mirapex 0.5 MG Tablet] 2 tab PO QHS 01/17/22 [History] Tizanidine HCl 4 mg [Zanaflex 4 MG] 2 tab PO HS 01/17/22 [History] Tramadol HCl 50 mg [Ultram 50 mg] 1 tab PO Q6H PRN 01/17/22 [History] Vitamin B Complex 1 cap PO DAILY 01/17/22 [History] Vitamin E (Dl,Tocopheryl Acet) [Vitamin E] 1 cap PO DAILY 01/17/22 [History] Hx Tetanus, Diphtheria Vaccination/Date Given: Yes Hx Influenza Vaccination/Date Given: Yes Hx Pneumococcal Vaccination/Date Given: Yes Travel Risk - International Travel Have you traveled outside of the country in past 3 weeks: No - Coronavirus Screening Are you exhibiting any of the following symptoms?: Yes Symptoms: Cough: New Onset, Headaches/Body Aches/Fatigue Close contact with a COVID-19 positive Pt in past 14-21 Days: No - Vaccine Status Have you recieved a Covid-19 vaccination: Yes Motor Vehicles 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 - Review of Systems Constitutional: No Symptoms Eyes: No Symptoms Ears, Nose, & Throat: No Symptoms Respiratory: Cough Cardiac: Chest Pain Abdominal/Gastrointestinal: No Symptoms Genitourinary Symptoms: No Symptoms Musculoskeletal: Arthralgias, Myalgias Skin: No Symptoms Neurological: No Symptoms Psychological: No Symptoms Endocrine: No Symptoms Hematologic/Lymphatic: No Symptoms Immunological/Allergic: No Symptoms All Other Systems: Reviewed and Negative - Past Medical History Pertinent Past Medical History: Yes Neurological History: Migraines, Peripheral Neuropathy, Other ENT History: Cataracts Cardiac History: High Cholesterol, Hypertension Respiratory History: Asthma, Sleep Apnea, Other Endocrine Medical History: Diabetes Type II Musculoskeletal History: Arthritis, Degenerative Disk Disease, Fractures, Other GI Medical History: Colitis, Esophageal Disorder, GERD, Irritable Bowel Psycho-Social History: Anxiety, Depression Other Medical History: Multiple Sclerosis, B Restless Leg Syndrome, GERD, L lower arm fracture (2007 and 2020), Acute Uveitis, T3 compression fracture, L1- S1 bulging discs, Back surgery (04/2015, 2017 or 2019 patient unable recall exactly), cholecystectomy, hysterectomy, scar tissue in R lung, fatty liver. Currently under treatment for: Abdominal pain, ankle weakness, anxiety disorder, arthrodesis status, Barrrett's esophagus, Bone Marrow Edema, Bronchiolitis, bronchitis, bursitis of left wrist, chronic back pain. Chronic use, continuous use of opiods,emphysema, fibromyalgia, neuropathy, - Past Surgical History Past Surgical History: Yes Cardiac: Cardiac Catheterization Gastrointestinal: Cholecystectomy Musculoskeletal: Orthopedic Surgery Female Surgical History: Hysterectomy Other Surgical History: CARPAL TUNNEL BILATERAL, Trigger finger x 2 on right hand. Lower back, - Social History Smoking Status: Current every day smoker How long have you smoked: 44 yrs Exposure to second hand smoke: Yes Drug Use: marijuana, bath salts, methamphetamines Patient Lives Alone: No Significant Family History: no pertinent family hx - Nursing Vital Signs Nursing Vital Signs: Initial Vital Signs Temperature 97.6 F 07/12/22 10:59 Pulse Rate 75 07/12/22 10:59 Respiratory Rate 18 07/12/22 10:59 Blood Pressure 175/93 07/12/22 10:59 O2 Sat by Pulse Oximetry 97 07/12/22 10:59 Pain Scale Pain Intensity 0 - Physical Exam General Appearance: no apparent distress, alert, anxiety, obese Eye Exam: PERRL/EOMI, eyes nml inspection Ears, Nose, Throat Exam: normal ENT inspection, moist mucous membranes Neck Exam: normal inspection, non-tender, supple, full range of motion Respiratory Exam: normal breath sounds, chest tenderness, lungs clear, airway intact, No respiratory distress Cardiovascular Exam: regular rate/rhythm, normal heart sounds, normal peripheral pulses Gastrointestinal/Abdomen Exam: soft, normal bowel sounds, No tenderness Pelvic Exam: not done Rectal Exam: not done Back Exam: normal inspection, normal range of motion, No CVA tenderness, No vertebral tenderness Extremity Exam: normal inspection, normal range of motion, pelvis stable Neurologic Exam: alert, oriented x 3, cooperative, acute care nurse practitioner II-XII nml as tested Skin Exam: normal color, warm, dry Lymphatic Exam: No adenopathy SpO2 Interpretation: normal O2 Delivery: Room Air - Course Nursing assessment & vital signs reviewed: Yes EKG Interpreted by Me: RATE (72), Sinus Rhythm, NORMAL AXIS, NORMAL INTERVALS, NORMAL QRS, Non-specific ST Changes, Other (No acute ischemic changes on today's EKG.) Ordered Tests: Active Orders 24 hr Category Date Time Status 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 STAT Care 07/12/22 11:12 Active EKG-ER Only STAT Care 07/12/22 11:12 Active IV Insertion STAT Care 07/12/22 11:12 Active Pulse Oximetry (ED) STAT Care 07/12/22 11:12 Active CHEST 1 VIEW (PORTABLE) Stat Exams 07/12/22 11:12 Taken CBC W DIFF Stat Lab 07/12/22 11:10 Completed CMP Stat Lab 07/12/22 11:10 Completed D-DIMER QUANTITATIVE Stat Lab 07/12/22 11:10 Completed TROPONIN Q4H Lab 07/12/22 11:10 Completed TROPONIN Q4H Lab 07/12/22 15:15 Ordered TROPONIN Q4H Lab 07/12/22 19:15 Ordered UA W/RFX CULTURE Stat Lab 07/12/22 11:37 Completed Urine Triage Profile Stat Lab 07/12/22 11:37 Completed Medication Summary Discontinued Medications Generic Name Dose Route Start Last Admin Trade Name Freq PRN Reason Stop Dose Admin Aspirin 324 mg 07/12/22 11:12 07/12/22 11:17 Aspirin 81 Mg Tab.Chew PO 07/12/22 11:13 324 mg STAT ONE Administration Morphine Sulfate 4 mg 07/12/22 11:12 07/12/22 11:20 Morphine Sulfate 4 Mg/Ml Injection IV 07/12/22 11:13 Not Given STAT ONE Ondansetron HCl 4 mg 07/12/22 11:12 07/12/22 11:19 Ondansetron Hcl 4 Mg/2 Ml Vial IV 07/12/22 11:13 4 mg STAT ONE Administration Ondansetron HCl Confirm 07/12/22 11:18 Ondansetron Hcl 4 Mg/2 Ml Vial Administered 07/12/22 11:19 Dose 4 mg .ROUTE .STK-MED ONE Lab/Rad Data: Laboratory Result Diagrams 07/12/22 11:10 07/12/22 11:10 Laboratory Results 07/12/22 07/12/22 07/12/22 Range/Units 11:37 11:37 11:30 WBC (4.0-10.5) x10^3/uL RBC (4.1-5.4) x10^6/uL Hgb (12.0-16.0) g/dL Hct (35-47) % MCV (78-100) fL MCH (26-32) pg MCHC (32-36) g/dL RDW (11.5-14.0) % Plt Count (150-450) x10^3/uL MPV (7.5-11.0) fL Gran % (36.0-66.0) % Immature Gran % (Auto) (0.00-0.4) % Nucleat RBC Rel Count (0.00-0.1) % Eos # (Auto) (0-0.5) x10^3/uL Immature Gran # (Auto) (0.00-0.03) x10^3u/L Absolute Lymphs (auto) (1.0-4.6) x10^3/uL Absolute Monos (auto) (0.0-1.3) x10^3/uL Absolute Nucleated RBC (0.00-0.01) x10^3u/L Lymphocytes % (24.0-44.0) % Monocytes % (0.0-12.0) % Eosinophils % (0.00-5.0) % Basophils % (0.0-0.4) % Absolute Granulocytes (1.4-6.9) x10^3/uL Basophils # (0-0.4) x10^3/uL D-Dimer (0.0-0.50) mg/L Sodium (137-145) mmol/L Potassium (3.5-5.1) mmol/L Chloride (98-107) mmol/L Carbon Dioxide (22-30) mmol/L Anion Gap (5-15) MEQ/L BUN (7-17) mg/dL Creatinine (0.52-1.04) mg/dL Estimated GFR ML/MIN Glucose (74-106) mg/dL Calcium (8.4-10.2) mg/dL Total Bilirubin (0.2-1.3) mg/dL AST (14-36) U/L ALT (0-35) U/L Alkaline Phosphatase (38-126) U/L Troponin I (0.000-0.034) ng/mL Serum Total Protein (6.3-8.2) g/dL Albumin (3.5-5.0) g/dL Urinalys Dipstick Clnc MAIN LAB Urine Color YELLOW (YELLOW) Urine Appearance CLEAR (CLEAR) Urine pH 5.5 (5-6) Ur Specific [place] 1.025 (1.005-1.025) POC Urine Protein Conf NEGATIVE (Negative) Urine Ketones NEGATIVE (NEGATIVE) Urine Nitrite NEGATIVE (NEGATIVE) Urine Bilirubin NEGATIVE (NEGATIVE) Urine Urobilinogen 0.2 (0-1) mg/dL Urine Leukocytes NEGATIVE (NEGATIVE) Urine WBC (Auto) NONE (0-5) /HPF Urine RBC (Auto) 0-2 (0-2) /HPF U Epithel Cells (Auto) NONE (FEW) /HPF Urine Bacteria (Auto) NONE (NEGATIVE) /HPF Urine RBC NEGATIVE (0-5) Fred/ul Urine Mucus (Auto) SLIGHT (NEGATIVE) /HPF Ur Culture Indicated? NO Urine Glucose NEGATIVE (NEGATIVE) mg/dL Urine Opiates Level NEGATIVE (NEGATIVE) Ur Methadone NEGATIVE (NEGATIVE) Urine Barbiturates NEGATIVE (NEGATIVE) Ur Phencyclidine (PCP) NEGATIVE (NEGATIVE) Urine Amphetamine NEGATIVE (NEGATIVE) U Benzodiazepine Level NEGATIVE (NEGATIVE) Urine Cocaine NEGATIVE (NEGATIVE) Urine Marijuana (THC) NEGATIVE (NEGATIVE) Influenza Type A Ag NEGATIVE (NEGATIVE) Influenza Type B Ag NEGATIVE (NEGATIVE) RSV (PCR) NEGATIVE (Negative) SARS-CoV-2 (PCR) NEGATIVE (NEGATIVE) 07/12/22 07/12/22 07/12/22 Range/Units 11:10 11:10 11:10 WBC 13.9 H (4.0-10.5) x10^3/uL RBC 5.03 (4.1-5.4) x10^6/uL Hgb 14.4 (12.0-16.0) g/dL Hct 44.6 (35-47) % MCV 88.7 (78-100) fL MCH 28.6 (26-32) pg MCHC 32.3 (32-36) g/dL RDW 15.9 H (11.5-14.0) % Plt Count 338 (150-450) x10^3/uL MPV 9.9 (7.5-11.0) fL Gran % 60.9 (36.0-66.0) % Immature Gran % (Auto) 0.4 (0.00-0.4) % Nucleat RBC Rel Count 0.0 (0.00-0.1) % Eos # (Auto) 0.13 (0-0.5) x10^3/uL Immature Gran # (Auto) 0.05 H (0.00-0.03) x10^3u/L Absolute Lymphs (auto) 4.18 (1.0-4.6) x10^3/uL Absolute Monos (auto) 0.92 (0.0-1.3) x10^3/uL Absolute Nucleated RBC 0.00 (0.00-0.01) x10^3u/L Lymphocytes % 30.2 (24.0-44.0) % Monocytes % 6.6 (0.0-12.0) % Eosinophils % 0.9 (0.00-5.0) % Basophils % 1.0 (0.0-0.4) % Absolute Granulocytes 8.44 H (1.4-6.9) x10^3/uL Basophils # 0.14 (0-0.4) x10^3/uL D-Dimer 0.39 (0.0-0.50) mg/L Sodium (137-145) mmol/L Potassium (3.5-5.1) mmol/L Chloride (98-107) mmol/L Carbon Dioxide (22-30) mmol/L Anion Gap (5-15) MEQ/L BUN (7-17) mg/dL Creatinine (0.52-1.04) mg/dL Estimated GFR ML/MIN Glucose (74-106) mg/dL Calcium (8.4-10.2) mg/dL Total Bilirubin (0.2-1.3) mg/dL AST (14-36) U/L ALT (0-35) U/L Alkaline Phosphatase (38-126) U/L Troponin I < 0.012 (0.000-0.034) ng/mL Serum Total Protein (6.3-8.2) g/dL Albumin (3.5-5.0) g/dL Urinalys Dipstick Clnc Urine Color (YELLOW) Urine Appearance (CLEAR) Urine pH (5-6) Ur Specific [place] (1.005-1.025) POC Urine Protein Conf (Negative) Urine Ketones (NEGATIVE) Urine Nitrite (NEGATIVE) Urine Bilirubin (NEGATIVE) Urine Urobilinogen (0-1) mg/dL Urine Leukocytes (NEGATIVE) Urine WBC (Auto) (0-5) /HPF Urine RBC (Auto) (0-2) /HPF U Epithel Cells (Auto) (FEW) /HPF Urine Bacteria (Auto) (NEGATIVE) /HPF Urine RBC (0-5) Fred/ul Urine Mucus (Auto) (NEGATIVE) /HPF Ur Culture Indicated? Urine Glucose (NEGATIVE) mg/dL Urine Opiates Level (NEGATIVE) Ur Methadone (NEGATIVE) Urine Barbiturates (NEGATIVE) Ur Phencyclidine (PCP) (NEGATIVE) Urine Amphetamine (NEGATIVE) U Benzodiazepine Level (NEGATIVE) Urine Cocaine (NEGATIVE) Urine Marijuana (THC) (NEGATIVE) Influenza Type A Ag (NEGATIVE) Influenza Type B Ag (NEGATIVE) RSV (PCR) (Negative) SARS-CoV-2 (PCR) (NEGATIVE) 07/12/22 Range/Units 11:10 WBC (4.0-10.5) x10^3/uL RBC (4.1-5.4) x10^6/uL Hgb (12.0-16.0) g/dL Hct (35-47) % MCV (78-100) fL MCH (26-32) pg MCHC (32-36) g/dL RDW (11.5-14.0) % Plt Count (150-450) x10^3/uL MPV (7.5-11.0) fL Gran % (36.0-66.0) % Immature Gran % (Auto) (0.00-0.4) % Nucleat RBC Rel Count (0.00-0.1) % Eos # (Auto) (0-0.5) x10^3/uL Immature Gran # (Auto) (0.00-0.03) x10^3u/L Absolute Lymphs (auto) (1.0-4.6) x10^3/uL Absolute Monos (auto) (0.0-1.3) x10^3/uL Absolute Nucleated RBC (0.00-0.01) x10^3u/L Lymphocytes % (24.0-44.0) % Monocytes % (0.0-12.0) % Eosinophils % (0.00-5.0) % Basophils % (0.0-0.4) % Absolute Granulocytes (1.4-6.9) x10^3/uL Basophils # (0-0.4) x10^3/uL D-Dimer (0.0-0.50) mg/L Sodium 140 (137-145) mmol/L Potassium 3.4 L (3.5-5.1) mmol/L Chloride 104 (98-107) mmol/L Carbon Dioxide 25 (22-30) mmol/L Anion Gap 13.9 (5-15) MEQ/L BUN 11 (7-17) mg/dL Creatinine 0.50 L (0.52-1.04) mg/dL Estimated GFR > 60.0 ML/MIN Glucose 177 H (74-106) mg/dL Calcium 9.1 (8.4-10.2) mg/dL Total Bilirubin 0.40 (0.2-1.3) mg/dL AST 19 (14-36) U/L ALT 18 (0-35) U/L Alkaline Phosphatase 144 H (38-126) U/L Troponin I (0.000-0.034) ng/mL Serum Total Protein 7.7 (6.3-8.2) g/dL Albumin 4.4 (3.5-5.0) g/dL Urinalys Dipstick Clnc Urine Color (YELLOW) Urine Appearance (CLEAR) Urine pH (5-6) Ur Specific [place] (1.005-1.025) POC Urine Protein Conf (Negative) Urine Ketones (NEGATIVE) Urine Nitrite (NEGATIVE) Urine Bilirubin (NEGATIVE) Urine Urobilinogen (0-1) mg/dL Urine Leukocytes (NEGATIVE) Urine WBC (Auto) (0-5) /HPF Urine RBC (Auto) (0-2) /HPF U Epithel Cells (Auto) (FEW) /HPF Urine Bacteria (Auto) (NEGATIVE) /HPF Urine RBC (0-5) Fred/ul Urine Mucus (Auto) (NEGATIVE) /HPF Ur Culture Indicated? Urine Glucose (NEGATIVE) mg/dL Urine Opiates Level (NEGATIVE) Ur Methadone (NEGATIVE) Urine Barbiturates (NEGATIVE) Ur Phencyclidine (PCP) (NEGATIVE) Urine Amphetamine (NEGATIVE) U Benzodiazepine Level (NEGATIVE) Urine Cocaine (NEGATIVE) Urine Marijuana (THC) (NEGATIVE) Influenza Type A Ag (NEGATIVE) Influenza Type B Ag (NEGATIVE) RSV (PCR) (Negative) SARS-CoV-2 (PCR) (NEGATIVE) - Progress Progress: improved, re-examined Air Movement: good Progress Note: 07/12/22 11:27 Chest x-ray shows no acute cardiopulmonary process 07/12/22 12:41 Medical decision making: This patient has been coughing up greenish sputum. Her work-up is negative for any acute myocardial infarction or pulmonary embolus. Although there is no evidence of pneumonia on chest x-ray, she may have a bronchitis brewing. Patient has had prednisone in the past without any problems. She states that she is allergic to penicillin but has taken amoxicillin in the past. She does not recall having a problem with cephalosporins. However, she does not specifically recall ever receiving them. We will send a prescription of prednisone and cefdinir to her pharmacy. Counseled pt/family regarding: lab results, diagnosis, need for follow-up, rad results - Departure Departure Disposition: Home Clinical Impression: Bronchitis Condition: Stable Critical Care Time: No Referrals: JOSIE COOLEY FNP [Primary Care Provider] - Follow up/PCP as directed Additional Instructions: Drink plenty fluids. Take your medication as prescribed. Avoid exposure to any kind of smoke. Follow-up with your primary care physician for further evaluation and management. Prescriptions: Cefdinir 300 mg PO BID #14 cap Prednisone 10 mg [Deltasone 10 mg] 10 mg PO TID #12 tablet
[2022-07-12] MEDS ORDERED: Zofran 4 MG/2 ML VIAL IV ONE (11:12)
[2022-07-12] MEDS ORDERED: MORPHINE SULFATE 4 MG INJ IV ONE (11:12)
[2022-07-12] MEDS ORDERED: BABY ASPIRIN 81 MG CHEW PO ONE (11:12)
[2022-07-12] MEDS ORDERED: Zofran 4 MG/2 ML VIAL ONE (11:18)
[2022-07-12 11:36] LABS: Absolute Neutrophil Ct (ANC) 8.44 x10^3/uL (1.4-6.9); Basophil (Absolute #) 0.14 x10^3/uL (0-0.4); Eosinophil % 0.9 % (0.00-5.0); Eosinophil (Absolute #) 0.13 x10^3/uL (0-0.5); Hematocrit 44.6 % (35-47); Hemoglobin 14.4 g/dL (12.0-16.0); Lymphocyte (Absolute #) 4.18 x10^3/uL (1.0-4.6); Lymphocytes % 30.2 % (24.0-44.0); Mean Cell Volume 88.7 fL (78-100); Mean Corpuscular Hemoglobin 28.6 pg (26-32); Mean Corpuscular Hgb Concent. 32.3 g/dL (32-36); Mean Platelet Volume 9.9 fL (7.5-11.0); Monocyte (Absolute #) 0.92 x10^3/uL (0.0-1.3); Monocytes % 6.6 % (0.0-12.0); Neutrophil % 60.9 % (36.0-66.0); Platelet Count 338 x10^3/uL (150-450); Red Blood Count 5.03 x10^6/uL (4.1-5.4); Red Cell Distribution Width 15.9 % (11.5-14.0); White Blood Count 13.9 x10^3/uL (4.0-10.5)
[2022-07-12 11:49] LABS: Appearance CLEAR (CLEAR); Bilirubin NEGATIVE (NEGATIVE); Dipstick done @ ? MAIN LAB; Glucose NEGATIVE (NEGATIVE); Ketones NEGATIVE (NEGATIVE); Nitrite NEGATIVE (NEGATIVE); Ph 5.5 (5-6); Protein,Urine Dip NEGATIVE (Negative); RBC NEGATIVE Ery/ul (0-5); Specific Gravity 1.025 (1.005-1.025); Urobilinogen 0.2 mg/dL (0-1)
[2022-07-12 11:51] LABS: ALBUMIN 4.4 g/dL (3.5-5.0); ALKALINE PHOSPHATASE 144 U/L (38-126); ANION GAP 13.9 MEQ/L (5-15); BLOOD UREA NITROGEN 11 mg/dL (7-17); CHLORIDE 104 mmol/L (98-107); Calcium 9.1 mg/dL (8.4-10.2); Carbon Dioxide 25 mmol/L (22-30); EST GLOMERULAR FILTRATION RATE > 60.0 ML/MIN; Glucose 177 mg/dL (74-106); Potassium 3.4 mmol/L (3.5-5.1); SGOT/AST 19 U/L (14-36); SGPT/ALT 18 U/L (0-35); SODIUM 140 mmol/L (137-145); Total Protein 7.7 g/dL (6.3-8.2)
[2022-07-12 12:00] LABS: Mucus SLIGHT /HPF (NEGATIVE); RBC 0-2 /HPF (0-2)
[2022-07-12 12:02] LABS: Amphetamine,Urine NEGATIVE (NEGATIVE); Barbiturate,Urine NEGATIVE (NEGATIVE); Benzodiazepine,Urine NEGATIVE (NEGATIVE); Cocaine,Urine NEGATIVE (NEGATIVE); Methadone,Urine NEGATIVE (NEGATIVE); Opiate,Urine NEGATIVE (NEGATIVE); PCP,Urine NEGATIVE (NEGATIVE); THC,Urine NEGATIVE (NEGATIVE)
[2022-07-12 12:07] LABS: Urine Cultured Indicated? NO
[2022-07-12 12:17] LABS: INFLUENZA A NEGATIVE (NEGATIVE); INFLUENZA B NEGATIVE (NEGATIVE); RESPIRATORY SYNCTIAL VIRUS NEGATIVE (Negative); SARS-CoV-2 Xpert Express NEGATIVE (NEGATIVE)
[2022-07-12 12:20] VITALS: BP 159/76
[2022-07-12 12:38] VITALS: PULSE 63; O2SAT 98
--- NOTE | 2022-07-12 21:26 | XRAY ---
Indication: Cough and chest pain. Comparison: January 31, 2022 Portable chest remains slightly underinflated and clear. Heart not enlarged. Bony thorax intact again with mild osteopenia and cervical thoracic junction fusion hardware. Impression: Continued nonacute chest.
== END 2022-07-12 12:57 | disposition home or self-care (01) ==
LOC: ED 10:59
DX: J40 Bronchitis, not specified as acute or chronic (principal); R07.9 Chest pain, unspecified; R06.02 Shortness of breath; R05.9 Cough, unspecified; R51.9 Headache, unspecified; M79.10 Myalgia, unspecified site; E78.5 Hyperlipidemia, unspecified; I10 Essential (primary) hypertension; E11.42 Type 2 diabetes mellitus with diabetic polyneuropathy; J43.9 Emphysema, unspecified; Z72.0 Tobacco use; Z79.891 Long term (current) use of opiate analgesic; Z79.52 Long term (current) use of systemic steroids; Z79.899 Other long term (current) drug therapy
CPT/HCPCS: 0241U; 36000; 36415; 71045; 80053; 80307; 81015; 84484; 85025; 85379; 93005; 93041; 94760; 96374; 99284; J2405; A9270-GY

== ENCOUNTER 2022-09-14 13:19 | Emergency (ER) | payer MEDICARE, OTHER ==
--- NOTE | 2022-09-14 13:52 | ERPHSYRPT ---
- History of Present Illness Patient Subjective Stated Complaint: Pt had broke her left wrist in 2020 and has a plate in it on the anterior lateral side and the posterior medial side hasn't ever healed properly and today she was placing a box in a tote and bent her arm the wrong way and felt and heard her wrist pop Triage Nursing Assessment: Pt brought to the ER by her boyfriend, hypertensive, rates pain as 9/10, pulses normal, cap refill normal, denies any other injuries Physician History: Pt had broke her left wrist in 2020 and has a plate in it on the anterior lateral side and the posterior medial side hasn't ever healed properly and today she was placing a box in a tote and bent her arm the wrong way and felt and heard her wrist pop Occurred: just prior to arrival Quality: constant Severity of Pain-Max: moderate Severity of Pain-Current: moderate Extremities Pain Location: wrist: left Modifying Factors: Improves With: cold therapy Associated Symptoms: none Body Map: 1 - pain Allergies/Adverse Reactions: fluticasone Allergy (Intermediate, Verified 09/14/22 13:43) Difficulty Breathing leflunomide Allergy (Intermediate, Verified 09/14/22 13:43) Rash meloxicam Allergy (Intermediate, Verified 09/14/22 13:43) Rash umeclidinium Allergy (Intermediate, Verified 09/14/22 13:43) Difficulty Breathing adhesive tape Allergy (Mild, Verified 09/14/22 13:43) Rash Penicillins Allergy (Mild, Verified 09/14/22 13:43) acetaminophen [From Percocet] Allergy (Verified 09/14/22 13:43) alendronate sodium [From Fosamax] Allergy (Verified 09/14/22 13:43) azithromycin [From Zithromax Z-Ciro] Allergy (Verified 09/14/22 13:43) Itching celecoxib [From Celebrex] Allergy (Verified 09/14/22 13:43) payan Allergy (Verified 09/14/22 13:43) codeine Allergy (Verified 09/14/22 13:43) moxifloxacin [From Vigamox] Allergy (Verified 09/14/22 13:43) nortriptyline Allergy (Verified 09/14/22 13:43) oxycodone [From Percocet] Allergy (Verified 09/14/22 13:43) risedronate sodium [From Actonel] Allergy (Verified 09/14/22 13:43) ropinirole [From Requip] Allergy (Verified 09/14/22 13:43) rosuvastatin [From Crestor] Allergy (Verified 09/14/22 13:43) solifenacin [From Vesicare] Allergy (Verified 09/14/22 13:43) [id number]-IkQ Reductase Inhibitor Allergy (Verified 09/14/22 13:43) Rash strawberry Allergy (Verified 09/14/22 13:43) tolterodine [From Detrol] Allergy (Verified 09/14/22 13:43) Hives topiramate [From Topamax] Allergy (Verified 09/14/22 13:43) Hives mirabegron Adverse Reaction (Severe, Verified 09/14/22 13:43) metronidazole Adverse Reaction (Intermediate, Verified 09/14/22 13:43) Nausea and Vomiting albuterol Adverse Reaction (Verified 09/14/22 13:43) atorvastatin [From Lipitor] Adverse Reaction (Verified 09/14/22 13:43) cyclobenzaprine [From Flexeril] Adverse Reaction (Verified 09/14/22 13:43) diphenhydramine [From Benadryl] Adverse Reaction (Verified 09/14/22 13:43) Rapid Heart Beat fluticasone furoate [From Breo Ellipta] Adverse Reaction (Verified 09/14/22 13:43) glatiramer (copolymer 1) [From Copaxone] Adverse Reaction (Verified 09/14/22 13:43) ibuprofen Adverse Reaction (Verified 09/14/22 13:43) interferon beta-1a [From Avonex] Adverse Reaction (Verified 09/14/22 13:43) ipratropium [From Combivent] Adverse Reaction (Verified 09/14/22 13:43) ketorolac [From Acular] Adverse Reaction (Verified 09/14/22 13:43) milnacipran [From Savella] Adverse Reaction (Verified 09/14/22 13:43) nicotine [From Nicotrol] Adverse Reaction (Verified 09/14/22 13:43) vilanterol [From Breo Ellipta] Adverse Reaction (Verified 09/14/22 13:43) Home Medications: Duloxetine HCl [Cymbalta] 90 mg PO DAILY 03/17/17 [History] Gabapentin [Neurontin 400 MG] 800 mg PO BID 03/17/17 [History] Montelukast Sodium [Singulair] 10 mg PO DAILY 03/17/17 [History] Propranolol HCl 20 mg PO BID 03/17/17 [History] levalbuterol HCL [Xopenex] 1.25 mg IH Q6HPRN PRN 03/17/17 [History] Amlodipine Besylate 2.5 mg PO DAILY 07/18/19 [History] Desloratadine 5 mg PO DAILY 07/18/19 [History] Lidocaine 5 patch DAILY 07/18/19 [History] clonazePAM [Clonazepam] 2 tab PO DAILY 07/18/19 [History] Baclofen 1 tab PO BID 01/17/22 [History] Benzonatate 1 cap PO TID PRN 01/17/22 [History] Budesonide/Formoterol Fumarate [Budesonide-Formoterol 160-4.5] 10.2 gm IH BID 01/17/22 [History] Cholecalciferol (Vitamin D3) [Vitamin D] 1 tab PO QHS 01/17/22 [History] Ciclopirox Olamine [Ciclopirox] 1 applic TOP BID PRN 01/17/22 [History] Fluticasone Propionate [Flonase NASAL] 1 spray INTRANASAL BID 01/17/22 [History] Isosorbide Mononitrate [Isosorbide Mononitrate ER] 1 tab PO DAILY 01/17/22 [History] Losartan Potassium 0.5 tab PO DAILY 01/17/22 [History] Nitroglycerin 0.4 mg Tablet [Nitrostat 0.4 MG Tablet] 1 tab SL UD 01/17/22 [History] PANTOPRAZOLE 40 mg Tablet [Protonix 40MG Tablet] 1 tab PO BID 01/17/22 [History] Potassium Chloride 1 tab PO BID 01/17/22 [History] Pramipexole Di-HCl 0.5 mg [Mirapex 0.5 MG Tablet] 2 tab PO QHS 01/17/22 [History] Tizanidine HCl 4 mg [Zanaflex 4 MG] 2 tab PO HS 01/17/22 [History] Tramadol HCl 50 mg [Ultram 50 mg] 1 tab PO Q6H PRN 01/17/22 [History] Vitamin B Complex 1 cap PO DAILY 01/17/22 [History] Vitamin E (Dl,Tocopheryl Acet) [Vitamin E] 1 cap PO DAILY 01/17/22 [History] Hx Tetanus, Diphtheria Vaccination/Date Given: Yes Hx Influenza Vaccination/Date Given: Yes Hx Pneumococcal Vaccination/Date Given: Yes Travel Risk - International Travel Have you traveled outside of the country in past 3 weeks: No - Coronavirus Screening Are you exhibiting any of the following symptoms?: No Close contact with a COVID-19 positive Pt in past 14-21 Days: No - Vaccine Status Have you recieved a Covid-19 vaccination: Yes Trouble Dispatcher: Moderna - Vaccination Dates Date of 2cond Vaccination (if applicable): 2020 - Review of Systems Constitutional: No Fever, No Chills Eyes: No Symptoms Ears, Nose, & Throat: No Symptoms Respiratory: No Cough, No Dyspnea Cardiac: No Chest Pain, No Edema, No Syncope Abdominal/Gastrointestinal: No Abdominal Pain, No Nausea, No Vomiting, No Diarrhea Genitourinary Symptoms: No Dysuria Musculoskeletal: Joint Pain (left wrist), No Back Pain, No Neck Pain, No Deformity Skin: No Rash Neurological: No Dizziness, No Focal Weakness, No Sensory Changes Psychological: No Symptoms Endocrine: No Symptoms All Other Systems: Reviewed and Negative - Past Medical History Pertinent Past Medical History: Yes Neurological History: Migraines, Peripheral Neuropathy, Other ENT History: Cataracts Cardiac History: High Cholesterol, Hypertension Respiratory History: Asthma, Sleep Apnea, Other Endocrine Medical History: Diabetes Type II Musculoskeletal History: Arthritis, Degenerative Disk Disease, Fractures, Other GI Medical History: Colitis, Esophageal Disorder, GERD, Irritable Bowel Psycho-Social History: Anxiety, Depression Other Medical History: Multiple Sclerosis, B Restless Leg Syndrome, GERD, L lower arm fracture (2007 and 2020), Acute Uveitis, T3 compression fracture, L1- S1 bulging discs, Back surgery (04/2015, 2018 or 2019 patient unable recall exactly), cholecystectomy, hysterectomy, scar tissue in R lung, fatty liver. Currently under treatment for: Abdominal pain, ankle weakness, anxiety disorder, arthrodesis status, Barrrett's esophagus, Bone Marrow Edema, Bronchiolitis, bronchitis, bursitis of left wrist, chronic back pain. Chronic use, continuous use of opiods,emphysema, fibromyalgia, neuropathy, - Past Surgical History Past Surgical History: Yes Cardiac: Cardiac Catheterization Gastrointestinal: Cholecystectomy Musculoskeletal: Orthopedic Surgery Female Surgical History: Hysterectomy Other Surgical History: CARPAL TUNNEL BILATERAL, Trigger finger x 2 on right hand. Lower back, left wrist - Social History Smoking Status: Current every day smoker How long have you smoked: 44 yrs Exposure to second hand smoke: Yes Drug Use: none Patient Lives Alone: No Significant Family History: no pertinent family hx - Nursing Vital Signs Nursing Vital Signs: Initial Vital Signs Temperature 97.4 F 09/14/22 13:34 Pulse Rate 85 09/14/22 13:34 Blood Pressure 150/89 09/14/22 13:34 O2 Sat by Pulse Oximetry 94 L 09/14/22 13:34 Pain Scale Pain Intensity 9 - Physical Exam General Appearance: alert Eyes, Ears, Nose, Throat Exam: moist mucous membranes Neck Exam: non-tender, supple Cardiovascular/Respiratory Exam: chest non-tender, normal breath sounds, regular rate/rhythm, no respiratory distress Abdominal Exam: non-tender, No guarding Back Exam: normal inspection, No vertebral tenderness Shoulder Exam: normal inspection Elbow/Forearm Exam: normal inspection Wrist Exam: soft tissue tenderness (left ) Neuro/Tendon Exam: normal sensation, normal motor functions Mental Status Exam: alert, oriented x 3, cooperative Skin Exam: normal color, warm, dry SpO2: 94 - Course Nursing assessment & vital signs reviewed: Yes - Radiology Exams Wrist X-ray Interpretation: Reviewed by me, Negative, No Fracture Forearm X-ray Interpretation: Reviewed by me, Negative, No Fracture Ordered Tests: Active Orders 24 hr Category Date Time Status FOREARM Stat Exams 09/14/22 14:31 Taken WRIST (MIN 3 VIEWS) Stat Exams 09/14/22 14:11 Taken - Progress Progress: improved, pain not gone completely Counseled pt/family regarding: diagnosis, need for follow-up, rad results - Departure Departure Disposition: Home Clinical Impression: Left forearm pain, Left wrist pain Condition: Stable Critical Care Time: No Referrals: JOSIE COOLEY FNP [Primary Care Provider] - Follow up/PCP as directed Instructions: Common Wrist Injuries (DC) Additional Instructions: Discharge/Care Plan ASHU VICTOR was seen on 09/14/22 in the Emergency Room. The patient was counseled regarding Diagnosis,Lab results, Imaging studies, need for follow up and when to return to the Emergency Room. Prescriptions given: Discharge Note I have spoken with the patient and/or caregivers. I have explained the patient's condition, diagnosis and treatment plan based on the information available to me at this time. I have answered the patient's and/or caregiver's questions and addressed any concerns. The patient and/or caregivers have as good understanding of the patient's diagnosis, condition and treatment plan as can be expected at this point. The vital signs have been stable. The patient's condition is stable and appropriate for discharge from the emergency department. The patient will pursue further outpatient evaluation with the primary care physician or other designated or consulting physician as outlined in the discharge instructions. The patient and/or caregivers are agreeable to this plan of care and follow-up instructions have been explained in detail. The patient and/or caregivers have received these instruction. The patient/and or caregivers are aware that any significant change in condition or worsening of symptoms should prompt an immediate return to this or the closest emergency department or call 911. ASHU VICTOR was seen on 09/14/22 n the Emergency Room. At that time you were treated for an emergent condition, during your visit Laboratory, Radiology and/or other procedures may have been ordered. It is very important that you follow-up with your Primary Care Physician FELICITAS HADLEY within the next 24-48 hours to review your Emergency Room visit and the final results of testing that was ordered. Some test results such as Urine Cultures, Blood Cultures, and other cultures if ordered will not be finalized for 24-48 hours. If you do not have a Primary Care Provider please call the medical records department at [phone] ext [phone] to obtain a copy of your results or you may sign into our patient portal to obtain these results by visiting us @ [email or web address] and completing the following steps: 1. Click on the Patient Portal link 2. Click the Patient Self Enrollment Link to complete the enrollment form and entering your 3. Once the enrollment form is completed you will receive an email with a temporary ID and password at the email address you provided. 4. Next choose a user name and password. Your user name must be at least 4 characters long and your password must be at least 4 characters long. 5. Choose a security question from the list and provide your answer to the question. If you already have signed into the Health Portal you may access your Health Care Information 25/05 by the following steps: 1. Login to our website @ [email or web address] 2. Enter your original user name and password. FAQS The [facility] Health Portal is an online tool that contains your Lab Results, Radiology Reports, Visit History, Discharge Instructions and Health Summary Lab and Radiology Results will not be available for 72 hours on the portal. The Portal is a secure site, passwords are encryted and URLs are re-written so t hey cannot be copied and pasted. You and authorized family members are the only ones who can access your Portal. Also there is a timeout feature that protects your information if you leave the Portal page open. If you have technical difficulty please use the Contact Us link on the page this will allow you to submit any questions you have regarding the Portal or you may contact the Medical Record Department at [phone] ext [phone].
[2022-09-14] MEDS ORDERED: MORPHINE SULFATE 4 MG INJ IM ONE (14:32)
[2022-09-14] MEDS ORDERED: MORPHINE SULFATE 4 MG INJ ONE (14:38)
[2022-09-14 14:57] VITALS: BP 138/74; PULSE 74; O2SAT 92
--- NOTE | 2022-09-14 18:04 | XRAY ---
Indication: Pain following fall. Comparison: None 2 view left forearm demonstrates osteopenia, old distal radius fracture with intact anterior fixation plate/screws, and old nonunited ulnar styloid fracture. No other bony, articular, or soft tissue abnormalities.
--- NOTE | 2022-09-14 18:06 | XRAY ---
Indication: Pain following fall. Comparison: None 3 view left wrist demonstrates osteopenia, old distal radius fracture with intact anterior fixation plate/screws, old nonunited ulnar styloid fracture, radiocarpal joint space narrowing, tiny lunate/triquetrum subcortical cysts, and mild 1st metacarpal multangular scaphoid degenerative changes. No other bony, articular, or soft tissue abnormalities. Impression: Nonacute left wrist with chronic features.
== END 2022-09-14 15:14 | disposition home or self-care (01) ==
LOC: ED 13:19
DX: M25.532 Pain in left wrist (principal); M79.632 Pain in left forearm; E78.5 Hyperlipidemia, unspecified; I10 Essential (primary) hypertension; E11.42 Type 2 diabetes mellitus with diabetic polyneuropathy; G35 Multiple sclerosis; Z72.0 Tobacco use; Z79.891 Long term (current) use of opiate analgesic; Z79.899 Other long term (current) drug therapy
CPT/HCPCS: 73090; 73110; 96372; 99283; J2270

== ENCOUNTER 2022-10-21 12:07 | Emergency (ER) | payer MEDICARE, OTHER ==
--- NOTE | 2022-10-21 12:17 | ERPHSYRPT ---
- History of Present Illness Time Seen by Provider: 10/21/22 12:16 Source: patient, EMS Exam Limitations: no limitations Physician History: This is a 56-year-old white female with multiple medical problems on multiple medications and has multiple drug allergies. Patient was brought into the emergency department by EMS secondary to falling after standing up from a chair. Patient has a history of multiple sclerosis as well as poor vision with detached retina of the right eye and chronic necrosis. She also has chronic visual problems in her right eye. She fell and hit her head but did not lose consciousness. She also fell onto her right shoulder and right hip. She is able to ambulate but there is some pain with ambulation. I obtained history from the ambulance/paramedics as well as reviewing old records from other visits here in this emergency department. Patient can have morphine, Phenergan, [place] and Zofran. I again patient takes tizanidine, clonazepam and tramadol for chronic pain issues. Patient has a history of migraine headaches, peripheral n europathy, hyperlipidemia, hypertension, asthma, diabetes, arthritis, restless leg syndrome, multiple sclerosis, chronic back issues and anxiety. Reviewed this with the patient and she states this was true. Occurred: just prior to arrival Reason for Fall: lost balance (Patient has poor vision and multiple sclerosis) Injuries/Pain Location: head, upper extremity (Right shoulder), lower extremity (Right hip) Loss of Consciousness: no loss of consciousness Quality: aching Severity of Pain-Max: mild (To moderate) Severity of Pain-Current: mild (To moderate) Associated Symptoms (Fall): extremity injury (Right shoulder and right hip), No back pain, No chest pain, No neck pain, No shortness of breath Allergies/Adverse Reactions: fluticasone Allergy (Intermediate, Verified 10/21/22 12:11) Difficulty Breathing leflunomide Allergy (Intermediate, Verified 10/21/22 12:11) Rash meloxicam Allergy (Intermediate, Verified 10/21/22 12:11) Rash umeclidinium Allergy (Intermediate, Verified 10/21/22 12:11) Difficulty Breathing adhesive tape Allergy (Mild, Verified 10/21/22 12:11) Rash Penicillins Allergy (Mild, Verified 10/21/22 12:11) acetaminophen [From Percocet] Allergy (Verified 10/21/22 12:11) alendronate sodium [From Fosamax] Allergy (Verified 10/21/22 12:11) azithromycin [From Zithromax Z-Ciro] Allergy (Verified 10/21/22 12:11) Itching celecoxib [From Celebrex] Allergy (Verified 10/21/22 12:11) payan Allergy (Verified 10/21/22 12:11) codeine Allergy (Verified 10/21/22 12:11) moxifloxacin [From Vigamox] Allergy (Verified 10/21/22 12:11) nortriptyline Allergy (Verified 10/21/22 12:11) oxycodone [From Percocet] Allergy (Verified 10/21/22 12:11) risedronate sodium [From Actonel] Allergy (Verified 10/21/22 12:11) ropinirole [From Requip] Allergy (Verified 10/21/22 12:11) rosuvastatin [From Crestor] Allergy (Verified 10/21/22 12:11) solifenacin [From Vesicare] Allergy (Verified 10/21/22 12:11) [id number]-PVD-WwS Reductase Inhibitor Allergy (Verified 10/21/22 12:11) Rash strawberry Allergy (Verified 10/21/22 12:11) tolterodine [From Detrol] Allergy (Verified 10/21/22 12:11) Hives topiramate [From Topamax] Allergy (Verified 10/21/22 12:11) Hives mirabegron Adverse Reaction (Severe, Verified 10/21/22 12:11) metronidazole Adverse Reaction (Intermediate, Verified 10/21/22 12:11) Nausea and Vomiting albuterol Adverse Reaction (Verified 10/21/22 12:11) atorvastatin [From Lipitor] Adverse Reaction (Verified 10/21/22 12:11) cyclobenzaprine [From Flexeril] Adverse Reaction (Verified 10/21/22 12:11) diphenhydramine [From Benadryl] Adverse Reaction (Verified 10/21/22 12:11) Rapid Heart Beat fluticasone furoate [From Breo Ellipta] Adverse Reaction (Verified 10/21/22 12:11) glatiramer (copolymer 1) [From Copaxone] Adverse Reaction (Verified 10/21/22 12:11) ibuprofen Adverse Reaction (Verified 10/21/22 12:11) interferon beta-1a [From Avonex] Adverse Reaction (Verified 10/21/22 12:11) ipratropium [From Combivent] Adverse Reaction (Verified 10/21/22 12:11) ketorolac [From Acular] Adverse Reaction (Verified 10/21/22 12:11) milnacipran [From Savella] Adverse Reaction (Verified 10/21/22 12:11) nicotine [From Nicotrol] Adverse Reaction (Verified 10/21/22 12:11) vilanterol [From Breo Ellipta] Adverse Reaction (Verified 10/21/22 12:11) Home Medications: Duloxetine HCl [Cymbalta] 90 mg PO DAILY 03/17/17 [History] Montelukast Sodium [Singulair] 10 mg PO DAILY 03/17/17 [History] Propranolol HCl 20 mg PO BID 03/17/17 [History] Amlodipine Besylate 2.5 mg PO DAILY 07/18/19 [History] Lidocaine 5 patch DAILY 07/18/19 [History] clonazePAM [Clonazepam] 2 tab PO HS 07/18/19 [History] Baclofen 1 tab PO TID 01/17/22 [History] Cholecalciferol (Vitamin D3) [Vitamin D] 5,000 units PO WEEKLY 01/17/22 [History] Fluticasone Propionate [Flonase NASAL] 1 spray INTRANASAL BID 01/17/22 [History] Isosorbide Mononitrate [Isosorbide Mononitrate ER] 1 tab PO DAILY 01/17/22 [History] Losartan Potassium 25 mg PO DAILY 01/17/22 [History] Nitroglycerin 0.4 mg Tablet [Nitrostat 0.4 MG Tablet] 1 tab SL UD 01/17/22 [History] PANTOPRAZOLE 40 mg Tablet [Protonix 40MG Tablet] 1 tab PO BID 01/17/22 [History] Potassium Chloride 1 tab PO BID 01/17/22 [History] Pramipexole Di-HCl 0.5 mg [Mirapex 0.5 MG Tablet] 2 tab PO QHS 01/17/22 [History] Tizanidine HCl 4 mg [Zanaflex 4 MG] 2 tab PO HS 01/17/22 [History] Vitamin B Complex 1 cap PO DAILY 01/17/22 [History] Vitamin E (Dl,Tocopheryl Acet) [Vitamin E] 1 cap PO DAILY 01/17/22 [History] Atropine Sulfate [Atropine Sulfate Eye Drops] 0.01 ml PO BID 10/21/22 [History] Budesonide/Glycopyr/Formoterol [Breztri Aerosphere Inhaler] 5.9 gm IH BID 10/21/22 [History] Difluprednate [Durezol] 0.0005 ml OP HS 10/21/22 [History] Doxycycline Hyclate 100 mg PO 10/21/22 [History] Esomeprazole Magnesium [Nexium 24Hr] 40 mg PO 10/21/22 [History] Folic Acid 1 mg [Folate 1 mg] 1 mg PO DAILY 10/21/22 [History] Furosemide [Lasix] 20 mg PO 10/21/22 [History] Gabapentin Enacarbil [Horizant] 600 mg PO BID 10/21/22 [History] Hydroxyzine HCl 25 mg [Atarax 25 mg] 25 mg PO DAILY PRN 10/21/22 [History] Hypromellose [Isopto Tears] 0.01 ml OP HS 10/21/22 [History] Non-Formulary Drug [Non-Formulary Item] 80 mg PO BID 10/21/22 [History] Hx Tetanus, Diphtheria Vaccination/Date Given: Yes Hx Influenza Vaccination/Date Given: Yes Hx Pneumococcal Vaccination/Date Given: Yes Travel Risk - International Travel Have you traveled outside of the country in past 3 weeks: No - Coronavirus Screening Are you exhibiting any of the following symptoms?: No Close contact with a COVID-19 positive Pt in past 14-21 Days: No - Vaccine Status Have you recieved a Covid-19 vaccination: Yes [employer]: Moderna - Vaccination Dates Date of 2cond Vaccination (if applicable): 2020 - Review of Systems Constitutional: No Symptoms Eyes: No Symptoms Ears, Nose, & Throat: No Symptoms Respiratory: No Symptoms Cardiac: No Symptoms Abdominal/Gastrointestinal: No Symptoms Genitourinary Symptoms: No Symptoms Musculoskeletal: Fall, Injury Skin: No Symptoms Neurological: Headache Psychological: No Symptoms Endocrine: No Symptoms Hematologic/Lymphatic: No Symptoms Immunological/Allergic: No Symptoms All Other Systems: Reviewed and Negative - Past Medical History Pertinent Past Medical History: Yes Neurological History: Migraines, Peripheral Neuropathy, Other ENT History: Cataracts Cardiac History: High Cholesterol, Hypertension Respiratory History: Asthma, Sleep Apnea, Other Endocrine Medical History: Diabetes Type II Musculoskeletal History: Arthritis, Degenerative Disk Disease, Fractures, Other GI Medical History: Colitis, Esophageal Disorder, GERD, Irritable Bowel Psycho-Social History: Anxiety, Depression Other Medical History: Multiple Sclerosis, B Restless Leg Syndrome, GERD, L lower arm fracture (2007 and 2020), Acute Uveitis, T3 compression fracture, L1- S1 bulging discs, Back surgery (04/2015, 2017 or 2018 patient unable recall exactly), cholecystectomy, hysterectomy, scar tissue in R lung, fatty liver. Currently under treatment for: Abdominal pain, ankle weakness, anxiety disorder, arthrodesis status, Barrrett's esophagus, Bone Marrow Edema, Bronchiolitis, bronchitis, bursitis of left wrist, chronic back pain. Chronic use, continuous use of opiods,emphysema, fibromyalgia, neuropathy, - Past Surgical History Past Surgical History: Yes Cardiac: Cardiac Catheterization Gastrointestinal: Cholecystectomy Musculoskeletal: Orthopedic Surgery Female Surgical History: Hysterectomy Other Surgical History: CARPAL TUNNEL BILATERAL, Trigger finger x 2 on right hand. Lower back, left wrist - Social History Smoking Status: Current every day smoker How long have you smoked: 44 yrs Exposure to second hand smoke: Yes Drug Use: none Patient Lives Alone: No Significant Family History: no pertinent family hx - Nursing Vital Signs Nursing Vital Signs: Initial Vital Signs Temperature 97.6 F 10/21/22 12:12 Pulse Rate 70 10/21/22 12:12 Respiratory Rate 22 10/21/22 12:12 Blood Pressure 129/72 10/21/22 12:12 O2 Sat by Pulse Oximetry 96 10/21/22 12:12 Pain Scale Pain Intensity 10 - [place] Coma Score Best Eye Response ([place]): (4) open spontaneously Best Verbal Response ([place]): (5) oriented Best Motor Response ([place]): (6) obeys commands [place] Total: 15 - Physical Exam General Appearance: no apparent distress, alert, anxiety Head Injury: no evidence of injury Eye Exam: other (Chronic bilateral eye abnormalities. No change from before the fall) ENT Exam: airway nml, nml ext.inspection Neck Exam: supple, trachea midline, full range of motion, normal alignment, normal inspection Respiratory/Chest Exam: normal breath sounds, No chest tenderness, No respiratory distress, No ecchymosis, No crepitus Cardiovascular Exam: normal heart sounds, regular rate/rhythm Gastrointestinal Exam: soft, normal bowel sounds, No tenderness Rectal Exam: not done Back Exam: normal inspection, normal range of motion, No CVA tenderness, No vertebral tenderness Extremity Exam: normal inspection, normal range of motion, pelvis stable, tenderness (To palpation of right shoulder and right hip without evidence of deformity), No deformities Neurologic Exam: alert, oriented x 3, cooperative, geophysical e logger II-XII nml as tested, normal mood/affect Skin Exam: normal color, warm, dry SpO2 Interpretation: normal O2 Delivery: Room Air - Course Nursing assessment & vital signs reviewed: Yes Ordered Tests: Active Orders 24 hr Category Date Time Status HEAD WITHOUT CONTRAST [CT] Stat Exams 10/21/22 12:52 Completed HIP UNI (2V) INCL PEL IF DONE Stat Exams 10/21/22 12:27 Completed SHOULDER Stat Exams 10/21/22 12:27 Completed Medication Summary Discontinued Medications Generic Name Dose Route Start Last Admin Trade Name [place] PRN Reason Stop Dose Admin Morphine Sulfate 4 mg 10/21/22 12:38 10/21/22 13:10 Morphine Sulfate 4 Mg/Ml Injection IM 10/21/22 12:39 4 mg STAT ONE Administration Morphine Sulfate Confirm 10/21/22 13:04 Morphine Sulfate 4 Mg/Ml Injection Administered 10/21/22 13:05 Dose 4 mg .ROUTE .STK-MED ONE Ondansetron HCl 4 mg 10/21/22 12:38 10/21/22 13:09 Zofran 4 Mg/Udtablet Orally Disintegrating PO 10/21/22 12:39 4 mg STAT ONE Administration Ondansetron HCl Confirm 10/21/22 13:04 Zofran 4 Mg/Udtablet Orally Disintegrating Administered 10/21/22 13:05 Dose 4 mg .ROUTE .STK-MED ONE - Progress Progress: improved, pain not gone completely Progress Note: 10/21/22 13:30 CT scan of head without contrast shows pansinusitis otherwise normal CT scan of the head without contrast. X-ray right shoulder shows no acute fracture or dislocation. X-ray of right hip shows no acute fracture or dislocation. Counseled pt/family regarding: diagnosis, need for follow-up, rad results - Departure Departure Disposition: Home Clinical Impression: Fall with no significant injury, Sinusitis Condition: Stable Critical Care Time: No Referrals: JOSIE COOLEY FNP [Primary Care Provider] - Follow up/PCP as directed Additional Instructions: Take all your medications as prescribed. Follow-up with your primary care physician for further evaluation and management of your pain and sinusitis.
[2022-10-21 12:21] VITALS: O2SAT 96
[2022-10-21] MEDS ORDERED: ZOFRAN ODT 4 MG PO ONE (12:38)
[2022-10-21] MEDS ORDERED: MORPHINE SULFATE 4 MG INJ IM ONE (12:38)
[2022-10-21] MEDS ORDERED: ZOFRAN ODT 4 MG ONE (13:04)
[2022-10-21] MEDS ORDERED: MORPHINE SULFATE 4 MG INJ ONE (13:04)
--- NOTE | 2022-10-21 13:14 | XRAY ---
Indication: Headache. Status post fall. Multiple contiguous axial images obtained through the head without contrast. Comparison: January 31, 2022 Normal appearing brain parenchyma, ventricles, and bony calvarium for patient's age. New moderate mucosal thickening both maxillary sinuses with tiny fluid leveling. Lesser mild mucosal thickening both ethmoid and both sphenoid sinuses. Mastoid air cells are clear. Stable left orbit posterior to changes. Impression: Continued normal CT head without contrast exam. New pansinusitis.
[2022-10-21 13:21] VITALS: BP 118/70; PULSE 79
--- NOTE | 2022-10-21 13:26 | XRAY ---
Indication: Pain following fall. Comparison: None 3 view right shoulder demonstrates mild osteopenia and partially visualized multilevel cervical thoracic fusion hardware. No other bony, articular, or soft tissue abnormalities.
--- NOTE | 2022-10-21 13:29 | XRAY ---
Indication: Right hip pain following fall. Comparison: None AP pelvis and 2 view right hip demonstrates mild osteopenia, bilateral L4-S1 fusion hardware, and tiny pelvic phleboliths. No other bony, articular, or soft tissue abnormalities.
== END 2022-10-21 13:41 | disposition home or self-care (01) ==
LOC: ED 12:07
DX: Z04.3 Encounter for examination and observation following other accident (principal); R51.9 Headache, unspecified; M25.511 Pain in right shoulder; M25.551 Pain in right hip; G35 Multiple sclerosis; E11.42 Type 2 diabetes mellitus with diabetic polyneuropathy; E78.5 Hyperlipidemia, unspecified; I10 Essential (primary) hypertension; Z79.899 Other long term (current) drug therapy; Z79.891 Long term (current) use of opiate analgesic; Z72.0 Tobacco use
CPT/HCPCS: 70450; 73030; 73502; 96372; 99283; J2270; Q0162

== ENCOUNTER 2022-10-29 13:42 | Emergency (ER) | payer MEDICARE, OTHER ==
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
[2022-10-29] MEDS ORDERED: Zofran 4 MG/2 ML VIAL IV ONE (14:13)
[2022-10-29] MEDS ORDERED: BABY ASPIRIN 81 MG CHEW PO ONE (14:13)
[2022-10-29] MEDS ORDERED: MOTRIN 600 MG PO ONE (14:17)
--- NOTE | 2022-10-29 14:30 | XRAY ---
Indication: Chest pain. Comparison: July 12, 2022 Portable chest unchanged again inflated and clear. Heart not enlarged. Bony thorax intact again with osteopenia and cervical thoracic junction fusion hardware. No new/acute findings.
[2022-10-29 14:42] LABS: ALBUMIN 4.5 g/dL (3.5-5.0); ALKALINE PHOSPHATASE 120 U/L (38-126); ANION GAP 10.8 MEQ/L (5-15); BLOOD UREA NITROGEN 12 mg/dL (7-17); CHLORIDE 103 mmol/L (98-107); Calcium 9.1 mg/dL (8.4-10.2); Carbon Dioxide 31 mmol/L (22-30); EST GLOMERULAR FILTRATION RATE > 60.0 ML/MIN; Glucose 128 mg/dL (74-106); SGOT/AST 29 U/L (14-36); SGPT/ALT 23 U/L (0-35); SODIUM 141 mmol/L (137-145); Total Protein 8.1 g/dL (6.3-8.2)
[2022-10-29 14:43] LABS: Absolute Neutrophil Ct (ANC) 8.44 x10^3/uL (1.4-6.9); Basophil (Absolute #) 0.11 x10^3/uL (0-0.4); Eosinophil % 0.5 % (0.00-5.0); Eosinophil (Absolute #) 0.06 x10^3/uL (0-0.5); Hematocrit 45.2 % (35-47); Hemoglobin 14.4 g/dL (12.0-16.0); Lymphocytes % 28.5 % (24.0-44.0); Mean Cell Volume 89.9 fL (78-100); Mean Corpuscular Hemoglobin 28.6 pg (26-32); Mean Corpuscular Hgb Concent. 31.9 g/dL (32-36); Mean Platelet Volume 9.7 fL (7.5-11.0); Monocytes % 4.6 % (0.0-12.0); Neutrophil % 65.1 % (36.0-66.0); Platelet Count 349 x10^3/uL (150-450); Red Blood Count 5.03 x10^6/uL (4.1-5.4); Red Cell Distribution Width 18.2 % (11.5-14.0)
[2022-10-29 17:14] VITALS: BP 127/56; PULSE 60
[2022-10-29 19:36] VITALS: O2SAT 98
== END 2022-10-29 20:03 | disposition home or self-care (01) ==
LOC: ED 13:42
DX: F41.1 Generalized anxiety disorder (principal); F43.0 Acute stress reaction; R07.82 Intercostal pain; R51.9 Headache, unspecified; R11.0 Nausea; E11.42 Type 2 diabetes mellitus with diabetic polyneuropathy; E78.5 Hyperlipidemia, unspecified; I10 Essential (primary) hypertension; Z79.899 Other long term (current) drug therapy; Z72.0 Tobacco use
CPT/HCPCS: 36000; 36415; 71045; 80053; 84484; 85025; 93005; 93041; 94760; 96374; 99284; 99291; J2405; A9270-GY

== ENCOUNTER 2022-11-10 23:55 | Emergency (ER) | payer MEDICARE, OTHER | END 2022-11-11 01:15 | disposition left against medical advice (07) | LOC: ED 23:55 | DX: Z53.21 Procedure and treatment not carried out due to patient leaving prior to being seen by health care provider (principal) ==

== ENCOUNTER 2022-12-01 04:09 | Inpatient (IN) | payer MEDICARE, OTHER ==
--- NOTE | 2022-12-01 04:51 | ERPHSYRPT ---
<CLOVIS PALMA SantosMyrna - Last Filed: 12/01/22 06:50> - History of Present Illness Time Seen by Provider: 12/01/22 04:44 Historian: patient, EMS Exam Limitations: no limitations Patient Subjective Stated Complaint: midsternal chest pain radiating to back Triage Nursing Assessment: Pt A&O x 3. Skin pale. Respirations unlabored but O2 sat 60% on RA. 3L NC applied and O2 sat up to 92%. Anterior bilateral upper lobes expiratory wheezes and posterior RLL crackles upon auscultation. Physician History: This is a 57 y/o 45 pack year smoking white female who presents to ed via ambulance for central substernal sharp cp that radiates to back. sx began yesterday but has persisted and worsened. additional hx obtained by both paramedics and old charts. pt hypoxic on ems arrival to home. pt has a fever of 102 F. pt dx with covid 19 infection 10/23. pt arrives soa and wheezing. pt has multiple medical issues including gerdz, chf, htn, hyperlipidemia, peripheral neuropathy, diabetes, multiple sclerosis, restless leg syndrome and anxiety. Timing/Duration: yesterday Quality: sharpness Location: substernal, central Chest Pain Radiation: back Severity of Pain-Max: mild Severity of Pain-Current: mild Associated Symptoms: cough, fever Nitro Today/Relief: 0.4 mg x 1, provided at home Aspirin Treatment Today: no aspirin today, 81 mg x 4, provided by EMS Allergies/Adverse Reactions: fluticasone Allergy (Intermediate, Verified 12/01/22 05:04) Difficulty Breathing leflunomide Allergy (Intermediate, Verified 12/01/22 05:04) Rash meloxicam Allergy (Intermediate, Verified 12/01/22 05:04) Rash umeclidinium Allergy (Intermediate, Verified 12/01/22 05:04) Difficulty Breathing adhesive tape Allergy (Mild, Verified 12/01/22 05:04) Rash Penicillins Allergy (Mild, Verified 12/01/22 05:04) alendronate sodium [From Fosamax] Allergy (Verified 12/01/22 05:04) azithromycin [From Zithromax Z-Ciro] Allergy (Verified 12/01/22 05:04) Itching celecoxib [From Celebrex] Allergy (Verified 12/01/22 05:04) payan Allergy (Verified 12/01/22 05:04) codeine Allergy (Verified 12/01/22 05:04) moxifloxacin [From Vigamox] Allergy (Verified 12/01/22 05:04) nortriptyline Allergy (Verified 12/01/22 05:04) oxycodone [From Percocet] Allergy (Verified 12/01/22 05:04) risedronate sodium [From Actonel] Allergy (Verified 12/01/22 05:04) ropinirole [From Requip] Allergy (Verified 12/01/22 05:04) rosuvastatin [From Crestor] Allergy (Verified 12/01/22 05:04) solifenacin [From Vesicare] Allergy (Verified 12/01/22 05:04) Wnkgnen-FLD-VoI Reductase Inhibitor Allergy (Verified 12/01/22 05:04) Rash strawberry Allergy (Verified 12/01/22 05:04) tolterodine [From Detrol] Allergy (Verified 12/01/22 05:04) Hives topiramate [From Topamax] Allergy (Verified 12/01/22 05:04) Hives mirabegron Adverse Reaction (Severe, Verified 12/01/22 05:04) metronidazole Adverse Reaction (Intermediate, Verified 12/01/22 05:04) Nausea and Vomiting albuterol Adverse Reaction (Verified 12/01/22 05:04) atorvastatin [From Lipitor] Adverse Reaction (Verified 12/01/22 05:04) cyclobenzaprine [From Flexeril] Adverse Reaction (Verified 12/01/22 05:04) diphenhydramine [From Benadryl] Adverse Reaction (Verified 12/01/22 05:04) Rapid Heart Beat fluticasone furoate [From Breo Ellipta] Adverse Reaction (Verified 12/01/22 05:04) glatiramer (copolymer 1) [From Copaxone] Adverse Reaction (Verified 12/01/22 05:04) ibuprofen Adverse Reaction (Verified 12/01/22 05:04) interferon beta-1a [From Avonex] Adverse Reaction (Verified 12/01/22 05:04) ipratropium [From Combivent] Adverse Reaction (Verified 12/01/22 05:04) ketorolac [From Acular] Adverse Reaction (Verified 12/01/22 05:04) milnacipran [From Savella] Adverse Reaction (Verified 12/01/22 05:04) nicotine [From Nicotrol] Adverse Reaction (Unverified 12/01/22 05:04) vilanterol [From Breo Ellipta] Adverse Reaction (Verified 12/01/22 05:04) Home Medications: Duloxetine HCl [Cymbalta] 90 mg PO DAILY 03/17/17 [History] Montelukast Sodium [Singulair] 10 mg PO DAILY 03/17/17 [History] Propranolol HCl 20 mg PO BID 03/17/17 [History] Amlodipine Besylate 2.5 mg PO DAILY 07/18/19 [History] clonazePAM [Clonazepam] 2 tab PO HS 07/18/19 [History] Baclofen 1 tab PO TID 01/17/22 [History] Cholecalciferol (Vitamin D3) [Vitamin D] 5,000 units PO WEEKLY 01/17/22 [History] Fluticasone Propionate [Flonase NASAL] 1 spray INTRANASAL BID 01/17/22 [History] Isosorbide Mononitrate [Isosorbide Mononitrate ER] 1 tab PO DAILY 01/17/22 [History] Losartan Potassium 25 mg PO DAILY 01/17/22 [History] Nitroglycerin 0.4 mg Tablet [Nitrostat 0.4 MG Tablet] 1 tab SL UD 01/17/22 [History] PANTOPRAZOLE 40 mg Tablet [Protonix 40MG Tablet] 1 tab PO BID 01/17/22 [History] Potassium Chloride 1 tab PO BID 01/17/22 [History] Pramipexole Di-HCl 0.5 mg [Mirapex 0.5 MG Tablet] 2 tab PO QHS 01/17/22 [History] Tizanidine HCl 4 mg [Zanaflex 4 MG] 2 tab PO HS 01/17/22 [History] Vitamin B Complex 1 cap PO DAILY 01/17/22 [History] Vitamin E (Dl,Tocopheryl Acet) [Vitamin E] 1 cap PO DAILY 01/17/22 [History] Atropine Sulfate [Atropine Sulfate Eye Drops] 0.01 ml PO QID 10/21/22 [History] Difluprednate [Durezol] 0.0005 ml OP QID 10/21/22 [History] Doxycycline Hyclate 100 mg PO DAILY 10/21/22 [History] Folic Acid 1 mg [Folate 1 mg] 1 mg PO DAILY 10/21/22 [History] Furosemide [Lasix] 20 mg PO DAILY 10/21/22 [History] Gabapentin Enacarbil [Horizant] 600 mg PO BID 10/21/22 [History] Hydroxyzine HCl 25 mg [Atarax 25 mg] 25 mg PO DAILY PRN 10/21/22 [History] Hypromellose [Isopto Tears] 0.01 ml OP HS 10/21/22 [History] Non-Formulary Drug [Non-Formulary Item] 80 mg PO BID 10/21/22 [History] Hx Tetanus, Diphtheria Vaccination/Date Given: Yes Hx Influenza Vaccination/Date Given: Yes Hx Pneumococcal Vaccination/Date Given: Yes Immunizations Up to Date: Yes Travel Risk - International Travel Have you traveled outside of the country in past 3 weeks: No - Coronavirus Screening Symptoms: Fever, Shortness of Breath, Headaches/Body Aches/Fatigue Close contact with a COVID-19 positive Pt in past 14-21 Days: No - Vaccine Status Have you recieved a Covid-19 vaccination: Yes Document Management Analyst: Moderna - Vaccination Dates Date of 2cond Vaccination (if applicable): 2020 - Review of Systems Constitutional: Fever, Weakness Eyes: No Symptoms Ears, Nose, & Throat: No Symptoms Respiratory: Cough Cardiac: Chest Pain Abdominal/Gastrointestinal: No Symptoms Genitourinary Symptoms: No Symptoms Musculoskeletal: Arthralgias, Myalgias Skin: No Symptoms Neurological: No Symptoms Psychological: No Symptoms Endocrine: No Symptoms Hematologic/Lymphatic: No Symptoms Immunological/Allergic: No Symptoms All Other Systems: Reviewed and Negative - Past Medical History Pertinent Past Medical History: Yes Neurological History: Migraines, Peripheral Neuropathy, Other ENT History: Cataracts Cardiac History: High Cholesterol, Hypertension Respiratory History: Asthma, Sleep Apnea, Other Endocrine Medical History: Diabetes Type II Musculoskeletal History: Arthritis, Degenerative Disk Disease, Fractures, Other GI Medical History: Colitis, Esophageal Disorder, GERD, Irritable Bowel Psycho-Social History: Anxiety, Depression Other Medical History: Multiple Sclerosis, Restless Leg Syndrome, L lower arm fracture (2007 and 2020), T3 compression fracture, L1-S1 bulging discs, scar tissue in R lung, fatty liver. Currently under treatment for: Abdominal pain, ankle weakness, anxiety disorder, arthrodesis status, Barrrett's esophagus, Bone Marrow Edema, bursitis of left wrist, chronic back pain, fibromyalgia - Past Surgical History Past Surgical History: Yes Neuro Surgical History: No Pertinent History Cardiac: Cardiac Catheterization Gastrointestinal: Cholecystectomy Musculoskeletal: Orthopedic Surgery Female Surgical History: Hysterectomy Other Surgical History: Back surgery (04/2015, 2017 or 2018 patient unable recall exactly), cholecystectomy, hysterectomy, right hand trigger finger, bilateral carpal tunnel. - Social History Smoking Status: Current every day smoker How long have you smoked: 45 years Exposure to second hand smoke: Yes Drug Use: none Patient Lives Alone: No Significant Family History: no pertinent family hx - Physical Exam General Appearance: no apparent distress, alert, anxiety, thin Eye Exam: PERRL/EOMI, eyes nml inspection Ears, Nose, Throat Exam: normal ENT inspection, dry mucous membranes Neck Exam: normal inspection, non-tender, supple, full range of motion Respiratory Exam: chest tenderness, wheezing Cardiovascular Exam: regular rate/rhythm, normal heart sounds, normal peripheral pulses Gastrointestinal/Abdomen Exam: soft, normal bowel sounds, No tenderness Pelvic Exam: not done Rectal Exam: not done Back Exam: normal inspection, normal range of motion, No CVA tenderness, No vertebral tenderness Extremity Exam: normal inspection, normal range of motion, pelvis stable Neurologic Exam: alert, oriented x 3, cooperative, director of services II-XII nml as tested, normal mood/affect, nml cerebellar function, nml station & gait, sensation nml Skin Exam: normal color, warm, dry Lymphatic Exam: No adenopathy SpO2: 92 O2 Delivery: Nasal Cannula (3 liters oxygen) - Course Nursing assessment & vital signs reviewed: Yes EKG Interpreted by Me: RATE (96), Sinus Rhythm, NORMAL AXIS, NORMAL INTERVALS, NORMAL QRS, Non-specific ST Changes, Other (no sig changes in 12 lead ekg when compared to ekg dated 10/29/22. ekg interpreted by me) - Progress Progress: improved, re-examined Air Movement: good Progress Note: 12/01/22 06:51 cxr interpreted by me. no acute infiltrate. cardiomegaly present signed out and transfer of care to dr. johnson at shift change. he will f/u on test results and make final disposition Blood Culture(s) Obtained: Yes Antibiotics given: No Counseled pt/family regarding: lab results, diagnosis, need for follow-up, rad results - Departure Departure Disposition: Home Clinical Impression: Leukocytosis, Chest pain, Fever, Hyponatremia, Hypokalemia, COVID-19 Condition: Stable Critical Care Time: No Referrals: JOSIE [facility] [employer] [Primary Care Provider] - Follow up/PCP as directed <DOUG JOHNSON - Last Filed: 12/01/22 12:09> - Nursing Vital Signs Nursing Vital Signs: Initial Vital Signs Temperature 102 F 12/01/22 04:29 Pulse Rate 101 H 12/01/22 04:29 Respiratory Rate 22 12/01/22 04:29 Blood Pressure 135/80 12/01/22 04:29 O2 Sat by Pulse Oximetry 92 L 12/01/22 04:29 Pain Scale Pain Intensity 0 - CT Exams Chest CT Interpretation: Discussed w/radiologist (No PE/Diffuse consolidating and groundglass airspace disease) Ordered Tests: Active Orders 24 hr Category Date Time Status Bedrest with BRP/BSC ROUTINE Activity 12/01/22 12:02 Ordered Manager Shift STAT Care 12/01/22 04:52 Active Code Status Order ROUTINE Care 12/01/22 12:02 Ordered EKG-ER Only STAT Care 12/01/22 04:51 Active IV Care Q6H Care 12/01/22 12:02 Ordered IV Insertion STAT Care 12/01/22 04:51 Active Implement Chest Pain Pathway ROUTINE Care 12/01/22 12:[address] in Observation ROUTINE Care 12/01/22 12:02 Ordered Pulse Oximetry (ED) STAT Care 12/01/22 04:51 Active Blair Dean, Apply ROUTINE Care 12/01/22 12:02 Ordered Vital Signs Q4H Care 12/01/22 12:02 Ordered Weight,Daily 0600 Care 12/01/22 12:02 Ordered Heart-Healthy Diet Diet 12/01/22 Dinner Ordered CHEST WITH CONTRAST [CT] Stat Exams 12/01/22 11:15 Completed BLOOD CULTURE Stat Lab 12/01/22 05:39 Received CBC W DIFF Stat Lab 12/01/22 05:45 Completed CMP Stat Lab 12/01/22 05:45 Completed COVID AG -BINAX NOW RAPID TEST Stat Lab 12/01/22 11:27 Completed D-DIMER QUANTITATIVE Stat Lab 12/01/22 05:39 Completed LIPID PROFILE AM.LAB Lab 12/02/22 04:00 Ordered Lactic Acid Stat Lab 12/01/22 04:51 Completed NT PRO BNP Stat Lab 12/01/22 05:45 Completed TROPONIN Q4H Lab 12/01/22 05:00 Completed TROPONIN Q4H Lab 12/01/22 13:00 Ordered TROPONIN Stat Lab 12/01/22 08:01 Completed UA W/RFX UR CULTURE Stat Lab 12/01/22 05:58 Completed EKG Q8HX2,QAMX3,PRN RT 12/01/22 12:02 Ordered Oxygen Nasal Cannula 4 lpm RT 12/01/22 12:02 Ordered Pulse Oximetry Q4H RT 12/01/22 12:02 Ordered Transfer Order Routine Transfer 12/01/22 Ordered Medication Summary Generic Name Dose Route Start Last Admin Trade Name Freq PRN Reason Stop Dose Admin Acetaminophen 650 mg 12/01/22 12:02 Acetaminophen 325 Mg Tablet PO 12/31/22 12:01 Q4H PRN PRN PAIN AND/OR FEVER Al Hydrox/Mg Hydrox/Simethicone 30 ml 12/01/22 12:02 Mag Hydrox/Al Hydrox/Simeth 30 Ml Udcup PO 12/31/22 12:01 Q4H PRN PRN INDIGESTION Insulin Human Lispro 0 unit 12/01/22 12:02 Insulin Lispro 1 Unit SQ 12/31/22 12:01 UD PRN HYPERGLYCEMIA Magnesium Hydroxide 30 - 60 ml 12/01/22 12:02 Magnesium Hydroxide 30 Ml Udcup PO 12/31/22 12:01 QDP PRN CONSTIPATION Ondansetron HCl 4 mg 12/01/22 12:02 Ondansetron Hcl 4 Mg/2 Ml Vial IV 12/31/22 12:01 Q4H PRN PRN NAUSEA/VOMITING Rivaroxaban 20 mg 12/02/22 10:00 Rivaroxaban 10 Mg Tablet PO 01/01/23 09:59 DAILY JANAE Senna/Docusate Sodium 2 udtab 12/01/22 12:02 Senna/Docusate Sodium 1 Udtab Tablet PO 12/31/22 12:01 BID PRN PRN CONSTIPATION Discontinued Medications Generic Name Dose Route Start Last Admin Trade Name Lucero PRN Reason Stop Dose Admin Acetaminophen 650 mg 12/01/22 04:53 12/01/22 05:08 Acetaminophen 325 Mg Tablet PO 12/01/22 04:54 650 mg STAT STA Administration Acetaminophen Confirm 12/01/22 05:07 Acetaminophen 325 Mg Tablet Administered 12/01/22 05:08 Dose 650 mg .ROUTE .STK-MED ONE Sodium Chloride 1,000 mls @ 999 mls/hr 12/01/22 06:46 12/01/22 08:28 Sodium Chloride 0.9% 1000 Ml IV 12/01/22 07:46 Infused .Q1H1M STA Infusion Sodium Chloride Confirm 12/01/22 06:49 Sodium Chloride 0.9% 1000 Ml Administered 12/01/22 06:50 Dose 1,000 mls @ ud .ROUTE .STK-MED ONE Lidocaine HCl Confirm 12/01/22 09:44 Lidocaine - Mpf 2% 5 Ml Vial Administered 12/01/22 09:45 Dose 5 ml .ROUTE .STK-MED ONE Potassium Chloride 20 meq 12/01/22 06:36 12/01/22 06:51 Potassium Chloride Tab 10 Meq Tab PO 12/01/22 06:37 20 meq STAT ONE Administration Potassium Chloride Confirm 12/01/22 06:49 Potassium Chloride Tab 10 Meq Tab Administered 12/01/22 06:50 Dose 20 meq PO .STK-MED ONE Lab/Rad Data: Laboratory Result Diagrams 12/01/22 05:45 12/01/22 05:45 Laboratory Results 12/01/22 12/01/22 12/01/22 Range/Units 11:27 08:01 05:58 WBC (4.0-10.5) x10^3/uL RBC (4.1-5.4) x10^6/uL Hgb (12.0-16.0) g/dL Hct (35-47) % MCV (78-100) fL MCH (26-32) pg MCHC (32-36) g/dL RDW (11.5-14.0) % Plt Count (150-450) x10^3/uL MPV (7.5-11.0) fL Gran % (36.0-66.0) % Immature Gran % (Auto) (0.00-0.4) % Nucleat RBC Rel Count (0.00-0.1) % Eos # (Auto) (0-0.5) x10^3/uL Immature Gran # (Auto) (0.00-0.03) x10^3u/L Absolute Lymphs (auto) (1.0-4.6) x10^3/uL Absolute Monos (auto) (0.0-1.3) x10^3/uL Absolute Nucleated RBC (0.00-0.01) x10^3u/L Lymphocytes % (24.0-44.0) % Monocytes % (0.0-12.0) % Eosinophils % (0.00-5.0) % Basophils % (0.0-0.4) % Absolute Granulocytes (1.4-6.9) x10^3/uL Basophils # (0-0.4) x10^3/uL D-Dimer (0.0-0.50) mg/L Sodium (137-145) mmol/L Potassium (3.5-5.1) mmol/L Chloride (98-107) mmol/L Carbon Dioxide (22-30) mmol/L Anion Gap (5-15) MEQ/L BUN (7-17) mg/dL Creatinine (0.52-1.04) mg/dL Estimated GFR ML/MIN Glucose (74-106) mg/dL Lactic Acid (0.4-2.0) Calcium (8.4-10.2) mg/dL Total Bilirubin (0.2-1.3) mg/dL AST (14-36) U/L ALT (0-35) U/L Alkaline Phosphatase (38-126) U/L Troponin I < 0.012 (0.000-0.034) ng/mL NT-Pro-B Natriuret Pep (0-900) pg/mL Serum Total Protein (6.3-8.2) g/dL Albumin (3.5-5.0) g/dL Urine Color Dark Yellow A (Yellow) Urine Appearance Cloudy A (Clear) Urine pH 5.5 (4.6-8.0) Ur Specific Nelson 1.025 (1.005-1.030) Urine Protein 30 (Negative) Urine Glucose (UA) Negative (Negative) mg/dL Urine Ketones Negative (Negative) Urine Blood Negative (Negative) Urine Nitrite Negative (Negative) Urine Bilirubin Small A (Negative) Urine Urobilinogen 2.0 A (0.2) mg/dL Ur Leukocyte Esterase Negative (Negative) U Hyaline Cast (Auto) NONE SEEN (0-2) /LPF Urine Microscopic RBC 11-20 A (0-5) /HPF Urine Microscopic WBC 0-2 (0-5) /HPF Ur Epithelial Cells Rare (None Seen) /HPF Urine Bacteria None Seen (None Seen) /HPF Urine Culture Reflexed NO (NO) Influenza Type A Ag (NEGATIVE) Influenza Type B Ag (NEGATIVE) RSV (PCR) (Negative) SARS-CoV-2 (PCR) (NEGATIVE) SARS-CoV-2 Ag (Rapid) POSITIVE A* (NEGATIVE) 12/01/22 12/01/22 12/01/22 Range/Units 05:45 05:45 05:39 WBC 12.0 H (4.0-10.5) x10^3/uL RBC 3.87 L (4.1-5.4) x10^6/uL Hgb 10.9 L (12.0-16.0) g/dL Hct 33.0 L (35-47) % MCV 85.3 (78-100) fL MCH 28.2 (26-32) pg MCHC 33.0 (32-36) g/dL RDW 18.3 H (11.5-14.0) % Plt Count 255 (150-450) x10^3/uL MPV 10.0 (7.5-11.0) fL Gran % 77.5 H (36.0-66.0) % Immature Gran % (Auto) 0.6 H (0.00-0.4) % Nucleat RBC Rel Count 0.0 (0.00-0.1) % Eos # (Auto) 0.10 (0-0.5) x10^3/uL Immature Gran # (Auto) 0.07 H (0.00-0.03) x10^3u/L Absolute Lymphs (auto) 2.02 (1.0-4.6) x10^3/uL Absolute Monos (auto) 0.47 (0.0-1.3) x10^3/uL Absolute Nucleated RBC 0.00 (0.00-0.01) x10^3u/L Lymphocytes % 16.8 L (24.0-44.0) % Monocytes % 3.9 (0.0-12.0) % Eosinophils % 0.8 (0.00-5.0) % Basophils % 0.4 (0.0-0.4) % Absolute Granulocytes 9.31 H (1.4-6.9) x10^3/uL Basophils # 0.05 (0-0.4) x10^3/uL D-Dimer 0.48 (0.0-0.50) mg/L Sodium 130 L (137-145) mmol/L Potassium 3.1 L (3.5-5.1) mmol/L Chloride 97 L (98-107) mmol/L Carbon Dioxide 29 (22-30) mmol/L Anion Gap 7.4 (5-15) MEQ/L BUN 12 (7-17) mg/dL Creatinine 0.50 L (0.52-1.04) mg/dL Estimated GFR > 60.0 ML/MIN Glucose 123 H (74-106) mg/dL Lactic Acid (0.4-2.0) Calcium 7.9 L (8.4-10.2) mg/dL Total Bilirubin 0.70 (0.2-1.3) mg/dL AST 27 (14-36) U/L ALT 18 (0-35) U/L Alkaline Phosphatase 73 (38-126) U/L Troponin I (0.000-0.034) ng/mL NT-Pro-B Natriuret Pep 139 (0-900) pg/mL Serum Total Protein 5.9 L (6.3-8.2) g/dL Albumin 3.1 L (3.5-5.0) g/dL Urine Color (Yellow) Urine Appearance (Clear) Urine pH (4.6-8.0) Ur Specific Nelson (1.005-1.030) Urine Protein (Negative) Urine Glucose (UA) (Negative) mg/dL Urine Ketones (Negative) Urine Blood (Negative) Urine Nitrite (Negative) Urine Bilirubin (Negative) Urine Urobilinogen (0.2) mg/dL Ur Leukocyte Esterase (Negative) U Hyaline Cast (Auto) (0-2) /LPF Urine Microscopic RBC (0-5) /HPF Urine Microscopic WBC (0-5) /HPF Ur Epithelial Cells (None Seen) /HPF Urine Bacteria (None Seen) /HPF Urine Culture Reflexed (NO) Influenza Type A Ag (NEGATIVE) Influenza Type B Ag (NEGATIVE) RSV (PCR) (Negative) SARS-CoV-2 (PCR) (NEGATIVE) SARS-CoV-2 Ag (Rapid) (NEGATIVE) 12/01/22 12/01/22 12/01/22 Range/Units 05:39 05:00 04:51 WBC (4.0-10.5) x10^3/uL RBC (4.1-5.4) x10^6/uL Hgb (12.0-16.0) g/dL Hct (35-47) % MCV (78-100) fL MCH (26-32) pg MCHC (32-36) g/dL RDW (11.5-14.0) % Plt Count (150-450) x10^3/uL MPV (7.5-11.0) fL Gran % (36.0-66.0) % Immature Gran % (Auto) (0.00-0.4) % Nucleat RBC Rel Count (0.00-0.1) % Eos # (Auto) (0-0.5) x10^3/uL Immature Gran # (Auto) (0.00-0.03) x10^3u/L Absolute Lymphs (auto) (1.0-4.6) x10^3/uL Absolute Monos (auto) (0.0-1.3) x10^3/uL Absolute Nucleated RBC (0.00-0.01) x10^3u/L Lymphocytes % (24.0-44.0) % Monocytes % (0.0-12.0) % Eosinophils % (0.00-5.0) % Basophils % (0.0-0.4) % Absolute Granulocytes (1.4-6.9) x10^3/uL Basophils # (0-0.4) x10^3/uL D-Dimer (0.0-0.50) mg/L Sodium (137-145) mmol/L Potassium (3.5-5.1) mmol/L Chloride (98-107) mmol/L Carbon Dioxide (22-30) mmol/L Anion Gap (5-15) MEQ/L BUN (7-17) mg/dL Creatinine (0.52-1.04) mg/dL Estimated GFR ML/MIN Glucose (74-106) mg/dL Lactic Acid 1.8 (0.4-2.0) Calcium (8.4-10.2) mg/dL Total Bilirubin (0.2-1.3) mg/dL AST (14-36) U/L ALT (0-35) U/L Alkaline Phosphatase (38-126) U/L Troponin I < 0.012 (0.000-0.034) ng/mL NT-Pro-B Natriuret Pep (0-900) pg/mL Serum Total Protein (6.3-8.2) g/dL Albumin (3.5-5.0) g/dL Urine Color (Yellow) Urine Appearance (Clear) Urine pH (4.6-8.0) Ur Specific Nelson (1.005-1.030) Urine Protein (Negative) Urine Glucose (UA) (Negative) mg/dL Urine Ketones (Negative) Urine Blood (Negative) Urine Nitrite (Negative) Urine Bilirubin (Negative) Urine Urobilinogen (0.2) mg/dL Ur Leukocyte Esterase (Negative) U Hyaline Cast (Auto) (0-2) /LPF Urine Microscopic RBC (0-5) /HPF Urine Microscopic WBC (0-5) /HPF Ur Epithelial Cells (None Seen) /HPF Urine Bacteria (None Seen) /HPF Urine Culture Reflexed (NO) Influenza Type A Ag NEGATIVE (NEGATIVE) Influenza Type B Ag NEGATIVE (NEGATIVE) RSV (PCR) NEGATIVE (Negative) SARS-CoV-2 (PCR) POSITIVE A (NEGATIVE) SARS-CoV-2 Ag (Rapid) (NEGATIVE) - Progress Progress Note: 12/01/22 10:21 Assumed care of pt at 7AM. 57 yo wf released form [facility] 4 days ago after extended stay for CV19. Pt is 2-4 L O2 NC dependent at home. Pt developed mid-sternal chest pain w radiation to her back beginning at 3AM. She states that she has been dyspneic w N/V. Lungs Rales at bases B Heart RRR woM Abdomen soft/NTTP EKG NSR/Rate 96/Prolonged QTc/Low voltage/Refugio-lateral flipped Twaves 12/01/22 10:28 12/01/22 12:06 Pt admitted due to poor functional status and increased oxygen requirement Obs per Dr. Crowley if Dr. Reddy will consult Dr. Maureen hernandez will consult and Dr. Crowley notified Nursing note and vital signs reviewed CT/CXR/Labs all reviewed and shared w pt Orders entered Pt is a full code
[2022-12-01] MEDS ORDERED: TYLENOL 325 MG PO STA (04:53)
[2022-12-01] MEDS ORDERED: TYLENOL 325 MG ONE (05:07)
[2022-12-01 05:51] LABS: Absolute Neutrophil Ct (ANC) 9.31 x10^3/uL (1.4-6.9); BASOPHIL % 0.4 % (0.0-0.4); Basophil (Absolute #) 0.05 x10^3/uL (0-0.4); Eosinophil % 0.8 % (0.00-5.0); Hemoglobin 10.9 g/dL (12.0-16.0); IMMATURE GRAN # 0.07 x10^3u/L (0.00-0.03); IMMATURE GRAN % 0.6 % (0.00-0.4); Lymphocyte (Absolute #) 2.02 x10^3/uL (1.0-4.6); Lymphocytes % 16.8 % (24.0-44.0); Mean Cell Volume 85.3 fL (78-100); Mean Corpuscular Hemoglobin 28.2 pg (26-32); Monocyte (Absolute #) 0.47 x10^3/uL (0.0-1.3); Monocytes % 3.9 % (0.0-12.0); Neutrophil % 77.5 % (36.0-66.0); Platelet Count 255 x10^3/uL (150-450); Red Blood Count 3.87 x10^6/uL (4.1-5.4); Red Cell Distribution Width 18.3 % (11.5-14.0)
[2022-12-01 06:16] LABS: ALBUMIN 3.1 g/dL (3.5-5.0); ALKALINE PHOSPHATASE 73 U/L (38-126); ANION GAP 7.4 MEQ/L (5-15); BLOOD UREA NITROGEN 12 mg/dL (7-17); CHLORIDE 97 mmol/L (98-107); Calcium 7.9 mg/dL (8.4-10.2); Carbon Dioxide 29 mmol/L (22-30); EST GLOMERULAR FILTRATION RATE > 60.0 ML/MIN; Glucose 123 mg/dL (74-106); NT PRO BNP 139 pg/mL (0-900); Potassium 3.1 mmol/L (3.5-5.1); SGOT/AST 27 U/L (14-36); SGPT/ALT 18 U/L (0-35); SODIUM 130 mmol/L (137-145); Total Protein 5.9 g/dL (6.3-8.2)
[2022-12-01 06:20] LABS: Appearance Cloudy (Clear); Bacteria None Seen /HPF (None Seen); Bilirubin Small (Negative); Blood Negative (Negative); Epithelial Cells Rare /HPF (None Seen); Glucose, Urine Negative (Negative); Hyaline Casts NONE SEEN /LPF (0-2); Ketones Negative (Negative); Leukocyte Esterase Negative (Negative); Nitrite Negative (Negative); Ph 5.5 (4.6-8.0); Protein,Urine Dip 30 (Negative); Specific Gravity 1.025 (1.005-1.030); WBC 0-2 /HPF (0-5)
[2022-12-01 06:27] LABS: INFLUENZA A NEGATIVE (NEGATIVE); INFLUENZA B NEGATIVE (NEGATIVE); RESPIRATORY SYNCTIAL VIRUS NEGATIVE (Negative)
[2022-12-01 06:28] LABS: ADD URINE CULTURE? NO (NO)
[2022-12-01 06:29] LABS: SARS-CoV-2 Xpert Express POSITIVE (NEGATIVE)
[2022-12-01] MEDS ORDERED: Klor Con PO ONE ×2 (06:36→06:49)
[2022-12-01] MEDS ORDERED: Sodium Chloride 0.9% 1000 ML 1,000 ML IV STA (06:46)
[2022-12-01] MEDS ORDERED: Sodium Chloride 0.9% 1000 ML 1,000 ML ONE (06:49)
[2022-12-01] MEDS ORDERED: Xylocaine-Mpf 2% 5 Ml Vial ONE (09:44)
--- NOTE | 2022-12-01 11:43 | XRAY ---
Indication: Fever, cough, and chest pain. Positive Covid 19. Elevated d-dimer. Multiple contiguous axial images obtained through the chest using 80 cc Isovue 370 contrast and PE protocol. Comparison: None Good opacification of the pulmonary arteries including lobar and segmental branches. No pulmonary embolus. Heart not enlarged. Aorta mildly arteriosclerotic without aneurysm/dissection. Small mediastinal lymph nodes, largest 2.0 x 1.2 cm anterior to the aortic arch. Lungs demonstrates moderate diffuse bilateral groundglass airspace disease with bilateral posterior consolidations. No effusion or pneumothorax. Bony thorax intact with C6-C7 and T2-T4 fusion hardware. Limited upper abdomen demonstrates mild diffuse fatty liver and cholecystectomy clips. Impression: 1. Negative pulmonary embolus. 2. Diffuse bilateral consolidating and groundglass airspace disease favoring Covid 19 pneumonia.
[2022-12-01] MEDS ORDERED: Zofran 4 MG/2 ML VIAL IV PRN (12:02)
[2022-12-01] MEDS ORDERED: MILK OF MAGNESIA 30 ML PO PRN (12:02)
[2022-12-01] MEDS ORDERED: Senokot-S Tablet PO PRN (12:02)
[2022-12-01] MEDS ORDERED: MAALOX ES 30 ML UNIT DOSE PO PRN (12:02)
--- NOTE | 2022-12-01 14:43 | CONS ---
CONSULT DATE: 12/01/2022 REASON FOR CONSULT: Evaluation of shortness of breath. HISTORY: Miss Joslyn Red is a 57-year-old woman with multiple health problems who was hospitalized for approximately six weeks at [facility] with COVID and COVID-related complications. According to the patient, she was discharged four days ago on oxygen at 3 liters/minute. She initially did well however unfortunately she started smoking at this time. She woke up this morning and is feeling retrosternal chest pressure leading to an ambulance visit to emergency room. After initial evaluation, she has been hospitalized. Her oxygen saturations were 60% on room air but improved to 92% on 3 liters. The patient does have cough productive of yellow expectoration. She was noted to have chills. However, she reportedly has had these ongoing for the last several weeks/month. PAST MEDICAL HISTORY: The patient reports history of prolonged hospitalization for COVID as reported above. Positive for history of coronary artery disease, congestive heart failure, dyslipidemia, gastroesophageal reflux disease, peripheral neuropathy, diabetes mellitus, multiple sclerosis, restless leg syndrome, anxiety. PAST SURGICAL HISTORY: No recent surgery. PERSONAL AND SOCIAL HISTORY: The patient had been a smoker usually half to one pack of cigarettes per day. MEDICATIONS: Home and current medications are reviewed. ALLERGIES: FLUTICASONE. LEFLUNOMIDE. MULTIPLE OTHER ALLERGIES ARE LISTED INCLUDE ANTIBIOTICS AND NSAIDS WHICH WERE REVIEWED WELL. PHYSICAL EXAMINATION: This is a middle aged woman. She is able to answer questions without difficulty although she continues to have shaking chills. She did have temperature of 102F in the emergency room, heart rate 101, blood pressure 135/87 mm of Mercury, saturating 94%. HEENT: Normocephalic. Oral exam unremarkable. NECK: Supple. CVS: First and second heart sounds are normal, regular, rhythmic. RESPIRATORY: Shows diminished breath sounds, occasional crackles are heard. ABDOMEN: Soft. EXTREMITIES: No significant edema is noted. LABORATORY DATA AND TESTS: White count 12, hemoglobin 10.9, hematocrit 33, PLT count 255,000. Sodium 130, potassium 3.1, chloride 97, bicarb 29, BUN 12, creatinine 0.50. Influenza A/B, respiratory syncytial virus and COVID tests were not repeated. Lactic acid was 1.8. Most of the radiology test results were pending. ASSESSMENT: This is a 57-year-old woman admitted with: 1) Admitted after recently being treated extensively at [facility] for COVID and COVID-related complications with fever and shortness of breath. The patient's clinical presentation is that of likely healthcare associated pneumonia. 2) Hypoxemia. 3) Nicotine addiction. Chronic obstructive pulmonary disease? 4) Records from [facility] are currently unavailable and will request the same, at least the Discharge Summary any recent physiology as well as lab tests. 5) Deep vein thrombosis and GI prophylaxis. 6) Continue bronchodilators and other supportive care. Treatment of tremors per primary care. I will continue to follow, await cultures of 48 hours before patient can be switched to oral antibiotic and discharged home. I will evaluate the patient in 48 hours. Thank you for allowing me to participate in the care of your patient.
[2022-12-01] MEDS: XARELTO 10 MG TABLET PO SCH (15:20)
[2022-12-01] MEDS: TYLENOL 325 MG PO PRN ×2 (15:21→21:09)
[2022-12-01] MEDS ORDERED: ATARAX 25 MG PO ONE (16:43)
[2022-12-01] MEDS ORDERED: ATARAX 25 MG PO PRN (17:04)
[2022-12-01] MEDS ORDERED: MEDICATION INTERVENTION MC SCH ×2 (17:30)
[2022-12-01] MEDS: Cymbalta 30 MG Capsule PO SCH (18:10)
[2022-12-01] MEDS: Mucinex 600MG ER Tabs PO SCH ×2 (18:12→18:36)
[2022-12-01] MEDS: Singulair 10 MG PO SCH (18:12)
[2022-12-01] MEDS: Pediapred SOLUTION 5 MG/5 ML PO SCH (18:12)
[2022-12-01] MEDS: ECOTRIN 81 MG PO SCH (18:12)
[2022-12-01] MEDS: FOLATE 1 MG PO SCH (18:12)
[2022-12-01] MEDS: VITA-BEE WITH C PO SCH (18:13)
[2022-12-01] MEDS: Zanaflex 4 MG PO SCH (21:08)
[2022-12-01] MEDS: Mirapex 0.5 MG Tablet PO SCH (21:08)
[2022-12-01] MEDS: LIORESAL 10 MG PO SCH (21:08)
[2022-12-01] MEDS: Protonix 40MG Tablet PO SCH (21:08)
[2022-12-01] MEDS: KLONOPIN PO SCH (21:08)
[2022-12-01] MEDS: HUMALOG SQ PRN (21:52)
[2022-12-01] MEDS ORDERED: NON-FORMULARY ITEM (Baclofen [Baclofen] 5 MG Tablet) PO SCH (22:00)
[2022-12-01] MEDS ORDERED: NON-FORMULARY ITEM (Budesonide/Formoterol Fumarate [Budesonide-Formoterol 160-4.5] 10.2 GM IH SCH (22:00)
[2022-12-01] MEDS ORDERED: NON-FORMULARY ITEM (Clonazepam [Clonazepam] 1 MG Tablet) PO SCH (22:00)
[2022-12-02] MEDS: Sodium Chloride 0.9% W/ 20 mEq KCl/LITER 1,000 ML IV SCH ×2 (00:49→17:44)
[2022-12-02 01:19] LABS: A-aADO2 171; ABG HEMOGLOBIN 10.1; ABG POTASSIUM 3.8 (3.5-5.1); ABG SITE RIGHT BRACHIAL; ARTERIAL BLD GAS O2 SATURATION 98.4 % (95-100); ARTERIAL BLOOD GAS BASE EXCESS 4.1 (-2.0-2.0); ARTERIAL BLOOD GAS FIO2 44 %; ARTERIAL BLOOD GAS PCO2 41 mmHg (35-45); ARTERIAL BLOOD GAS PO2 91 mmHg (75-100); ARTERIAL BLOOD GAS pH 7.45 (7.35-7.45); CARBOXYHEMOGLOBIN 1.6 % THgb (0.0-6.9); HCO3- 28.5 (22-28); HGB O2 SAT 96.3 g/dF (94-100); Methhemoglobin 0.5 % (1.4-1.5); paO2 pAO1 0.35
[2022-12-02 05:07] LABS: Hematocrit 30.4 % (35-47); Hemoglobin 9.6 g/dL (12.0-16.0); Mean Cell Volume 87.1 fL (78-100); Mean Corpuscular Hemoglobin 27.5 pg (26-32); Mean Corpuscular Hgb Concent. 31.6 g/dL (32-36); Mean Platelet Volume 10.2 fL (7.5-11.0); Platelet Count 246 x10^3/uL (150-450); Red Blood Count 3.49 x10^6/uL (4.1-5.4); Red Cell Distribution Width 18.7 % (11.5-14.0); White Blood Count 7.6 x10^3/uL (4.0-10.5)
[2022-12-02 05:33] LABS: ANION GAP 4.9 MEQ/L (5-15); BLOOD UREA NITROGEN 12 mg/dL (7-17); CHLORIDE 103 mmol/L (98-107); Calcium 7.3 mg/dL (8.4-10.2); Carbon Dioxide 27 mmol/L (22-30); Creatinine 1 0.45 mg/dL (0.52-1.04); EST GLOMERULAR FILTRATION RATE > 60.0 ML/MIN; Glucose 321 mg/dL (74-106); Potassium 4.2 mmol/L (3.5-5.1); SODIUM 131 mmol/L (137-145)
--- NOTE | 2022-12-02 08:30 | XRAY ---
Indication: Covid 19 pneumonia. Comparison: October 29, 2022 Portable chest now demonstrates moderate diffuse bilateral hazy groundglass airspace disease with developing right base patchy consolidation. Heart not enlarged. Bony thorax intact again with osteopenia and upper thoracic fusion. New lower cervical fusion hardware.
[2022-12-02] MEDS: Cymbalta 30 MG Capsule PO SCH (08:58)
[2022-12-02] MEDS: FOLATE 1 MG PO SCH (08:59)
[2022-12-02] MEDS: ECOTRIN 81 MG PO SCH (08:59)
[2022-12-02] MEDS: Protonix 40MG Tablet PO SCH ×2 (08:59→20:56)
[2022-12-02] MEDS: Singulair 10 MG PO SCH (09:00)
[2022-12-02] MEDS: Pediapred SOLUTION 5 MG/5 ML PO SCH (09:00)
[2022-12-02] MEDS: VITA-BEE WITH C PO SCH (09:00)
[2022-12-02] MEDS: Mucinex 600MG ER Tabs PO SCH (09:11)
[2022-12-02] MEDS: LIORESAL 10 MG PO SCH ×3 (09:45→20:56)
[2022-12-02] MEDS ORDERED: NON-FORMULARY ITEM (Duloxetine Hcl [Cymbalta] 60 MG Capsule.Dr) PO SCH (10:00)
[2022-12-02] MEDS ORDERED: NON-FORMULARY ITEM (Vitamin B Complex [Vitamin B Complex] 1 EACH Tablet) PO SCH (10:00)
[2022-12-02] MEDS ORDERED: VITAMIN E 200 UNIT PO SCH (10:00)
[2022-12-02] MEDS: XARELTO 10 MG TABLET PO SCH (12:48)
--- NOTE | 2022-12-02 13:17 | PCM.HP ---
History of Present Illness - Chief Complaint Chief Complaint: Failure to thrive, COVID-19, HYPONATREMIA, HYPOKALEMIA History of Present Illness: is a 57 year old female of Dr Colleen Floyd who presented to ER buy ambulace with sudden onset of chest pain and hypoxia. O2 sat was 60% on RA per medics which went up to 92% on 3L O2. Patient was just discharged after a long stay at [facility] with Covid pneumonia and complications,awaiting records. She started smoking again. after discharge. Patient has multiple medical problems including DM,CAD,CHF, current smoker, BOOP ,HLD,GERD ,peripheral neuropathy,restess legs,anxiety and MS followed by Neurology.Patient is admitted to [facility] room with Pulmonology,Dr Santiago ,consulting .(see consult note 12/01/22)Patient is asking to go to Rehab when discharged. - Review of Systems Constitutional: Fever, Chills Eyes: No Symptoms Ears, Nose, & Throat: No Symptoms Respiratory: Cough, Short Of Breath Cardiac: Chest Pain Abdominal/Gastrointestinal: Constipation (states perianal warts that affect easy evacuation of bowels) Genitourinary Symptoms: No Symptoms, Vaginal Discharge Musculoskeletal: Arthralgias, Myalgias Skin: No Symptoms Neurological: Other (neuropathy BLE,chronic, MS) Psychological: Anxiety Endocrine: No Symptoms Hematologic/Lymphatic: Blood Clots ( on Xarelto) Medications & Allergies Home Medications: Home Medication List Duloxetine HCl [Cymbalta] 90 mg PO DAILY 03/17/17 [History Confirmed 12/01/22] Montelukast Sodium [Singulair] 10 mg PO DAILY 03/17/17 [History Confirmed 12/01/22] clonazePAM [Clonazepam] 2 tab PO HS 07/18/19 [History Confirmed 12/01/22] Baclofen 1 tab PO TID 01/17/22 [History Confirmed 12/01/22] PANTOPRAZOLE 40 mg Tablet [Protonix 40MG Tablet] 1 tab PO BID 01/17/22 [History Confirmed 12/01/22] Pramipexole Di-HCl 0.5 mg [Mirapex 0.5 MG Tablet] 1 mg PO QHS 01/17/22 [History Confirmed 12/01/22] Tizanidine HCl 4 mg [Zanaflex 4 MG] 2 tab PO HS 01/17/22 [History Confirmed 12/01/22] Vitamin B Complex 1 cap PO DAILY 01/17/22 [History Confirmed 12/01/22] Vitamin E (Dl,Tocopheryl Acet) [Vitamin E] 1 cap PO DAILY 01/17/22 [History Confirmed 12/01/22] Doxycycline Hyclate 100 mg PO DAILY 10/21/22 [History Confirmed 12/01/22] Folic Acid 1 mg [Folate 1 mg] 1 mg PO DAILY 10/21/22 [History Confirmed 12/01/22] Hydroxyzine HCl 25 mg [Atarax 25 mg] 25 mg PO QID PRN 10/21/22 [History Confirmed 12/01/22] Aspirin EC 81 mg [Ecotrin 81 mg] 81 mg PO DAILY 12/01/22 [History Co nfirmed 12/01/22] Budesonide/Formoterol Fumarate [Budesonide-Formoterol 160-4.5] 10.2 gm IH BID 12/01/22 [History Confirmed 12/01/22] Guaifenesin 600 mg ER [Mucinex 600MG ER Tabs] 600 mg PO DAILY 12/01/22 [History Confirmed 12/01/22] Ketorolac Trometh 10 mg Tab [TORAdol 10 MG TABLET] 1 tab PO QID 12/01/22 [History Confirmed 12/01/22] Metformin HCl 500 mg [Glucophage 500 MG] 500 mg PO DAILY 12/01/22 [History Confirmed 12/01/22] Prednisolone 5 mg/5 ml [Pediapred SOLUTION 5 MG/5 ML] 15 mg PO DAILY 12/01/22 [History Confirmed 12/01/22] Rivaroxaban 10 mg Tablet [Xarelto 10 mg Tablet] 20 mg PO DAILY 12/01/22 [History Confirmed 12/01/22] Allergies/Adverse Reactions: Allergies Allergy/AdvReac Type Severity Reaction Status Date / Time fluticasone Allergy Intermediate Difficulty Verified 12/01/22 12:08 Breathing leflunomide Allergy Intermediate Rash Verified 12/01/22 12:08 meloxicam Allergy Intermediate Rash Verified 12/01/22 12:08 umeclidinium Allergy Intermediate Difficulty Verified 12/01/22 12:08 Breathing adhesive tape Allergy Mild Rash Verified 12/01/22 12:08 Penicillins Allergy Mild Verified 12/01/22 12:08 alendronate sodium Allergy Verified 12/01/22 12:08 [From Fosamax] azithromycin Allergy Itching Verified 12/01/22 12:08 [From Zithromax Z-Ciro] celecoxib [From Celebrex] Allergy Verified 12/01/22 12:08 payan Allergy Verified 12/01/22 12:08 codeine Allergy Verified 12/01/22 12:08 moxifloxacin [From Vigamox] Allergy Verified 12/01/22 12:08 nortriptyline Allergy Verified 12/01/22 12:08 oxycodone [From Percocet] Allergy Verified 12/01/22 12:08 risedronate sodium Allergy Verified 12/01/22 12:08 [From Actonel] ropinirole [From Requip] Allergy Verified 12/01/22 12:08 rosuvastatin [From Crestor] Allergy Verified 12/01/22 12:08 solifenacin [From Vesicare] Allergy Verified 12/01/22 12:08 Hquvgye-KEV-XiV Reductase Allergy Rash Verified 12/01/22 12:08 Inhibitor strawberry Allergy Verified 12/01/22 12:08 tolterodine [From Detrol] Allergy Hives Verified 12/01/22 12:08 topiramate [From Topamax] Allergy Hives Verified 12/01/22 12:08 mirabegron AdvReac Severe Verified 12/01/22 12:08 metronidazole AdvReac Intermediate Nausea and Verified 12/01/22 12:08 Vomiting albuterol AdvReac Verified 12/01/22 12:08 atorvastatin [From Lipitor] AdvReac Verified 12/01/22 12:08 cyclobenzaprine AdvReac Verified 12/01/22 12:08 [From Flexeril] diphenhydramine AdvReac Rapid Verified 12/01/22 12:08 [From Benadryl] Heart Beat fluticasone furoate AdvReac Verified 12/01/22 12:08 [From Breo Ellipta] glatiramer (copolymer 1) AdvReac Verified 12/01/22 12:08 [From Copaxone] ibuprofen AdvReac Verified 12/01/22 12:08 interferon beta-1a AdvReac Verified 12/01/22 12:08 [From Avonex] ipratropium [From Combivent] AdvReac Verified 12/01/22 12:08 ketorolac [From Acular] AdvReac Verified 12/01/22 12:08 milnacipran [From Savella] AdvReac Verified 12/01/22 12:08 nicotine [From Nicotrol] AdvReac Verified 12/01/22 12:08 vilanterol AdvReac Verified 12/01/22 12:08 [From Breo Ellipta] - Past Medical History Past Medical History: Yes Neurological History: Migraines, Peripheral Neuropathy, Other ENT History: Cataracts Cardiac History: High Cholesterol, Hypertension Respiratory History: Asthma, Sleep Apnea, Other Endocrine Medical History: Diabetes Type II Musculoskelatal History: Arthritis, Degenerative Disk Disease, Fractures, Other GI Medical History: Colitis, Esophageal Disorder, GERD, Irritable Bowel Pyscho-Social History: Anxiety, Depression Comment: Multiple Sclerosis, Restless Leg Syndrome, L lower arm fracture (2007 and 2020), T3 compression fracture, L1-S1 bulging discs, scar tissue in R lung, fatty liver. Currently under treatment for: Abdominal pain, ankle weakness, anxiety disorder, arthrodesis status, Barrrett's esophagus, Bone Marrow Edema, bursitis of left wrist, chronic back pain, fibromyalgia - Past Surgical History Past Surgical History: Yes Neuro Surgical History: No Pertinent History Cardiac History: Cardiac Catheterization GI Surgical History: Cholecystectomy Musculskeletal Surgical Hx: Orthopedic Surgery Female Surgical History: Hysterectomy Other Surgical History: Back surgery (04/2015, 2018 or 2019 patient unable recall exactly), cholecystectomy, hysterectomy, right hand trigger finger, bilateral carpal tunnel. - Social History Smoking Status: Heavy tobacco smoker How long have you smoked: 45 years Exposure to second hand smoke: Yes Alcohol: None Drug Use: none Significant Family History: no pertinent family hx - Physical Exam Vital Signs: Vital Signs - 24 hr Temp Pulse Resp BP Pulse Ox 12/02/22 11:45 98.1 F 51 L 16 83/52 92 L 12/02/22 09:12 61 88/51 12/02/22 08:04 96 12/02/22 07:47 97.9 F 51 L 20 69/53 92 L 12/02/22 05:22 96.9 F 63 18 71/45 94 L 12/02/22 03:59 48 L 92 L 12/02/22 02:55 48 L 68/33 12/02/22 01:40 67/37 12/02/22 01:15 55 L 80/50 88 L 12/02/22 00:45 98 F 75/50 12/02/22 00:00 67/37 12/01/22 23:33 96.9 F 64 19 72/35 88 L 12/01/22 19:50 98.9 F 86 17 89/36 89 L 12/01/22 19:32 91 L 12/01/22 16:00 99.1 F 100 H 20 92/41 93 L 12/01/22 13:57 98.7 F 109 H 18 135/70 91 L 12/01/22 13:03 98.7 F 109 H 18 135/70 91 L General Appearance: no apparent distress, other (just [facility],ate well regular diet) Neurologic Exam: alert, oriented x 3, cooperative, normal mood/affect Eye Exam: eyes nml inspection Ears, Nose, Throat Exam: normal ENT inspection, moist mucous membranes Neck Exam: normal inspection Respiratory Exam: diminished breath sounds, crackles/rales (few left base), other (no conversational edema,is wearing O2/NC) Cardiovascular Exam: bradycardia (regular,60) Gastrointestinal/Abdomen Exam: soft (nontender) Pelvic Exam: not done Rectal Exam: not done Back Exam: normal inspection (no pitting edema,moves all extremities) Results - Labs Lab/Micro Results: Lab Results-Last 24 Hours 12/01/22 12/01/22 12/01/22 Range/Units 13:29 16:07 21:43 WBC (4.0-10.5) x10^3/uL RBC (4.1-5.4) x10^6/uL Hgb (12.0-16.0) g/dL Hct (35-47) % MCV (78-100) fL MCH (26-32) pg MCHC (32-36) g/dL RDW (11.5-14.0) % Plt Count (150-450) x10^3/uL MPV (7.5-11.0) fL Puncture Site pCO2 (35-45) mmHg pO2 (75-100) mmHg Base Excess (-2.0-2.0) O2 Saturation (94-100) g/dF ABG pH (7.35-7.45) ABG HCO3 (22-28) ABG O2 Sat (Measured) (95-100) % Canelo Test A-a Gradient a/A Ratio Hemoglobin Carboxyhemoglobin (0.0-6.9) % THgb Methemoglobin (1.4-1.5) % Potassium (3.5-5.1) Temperature C POC O2 Flow Rate % Sodium (137-145) mmol/L Chloride (98-107) mmol/L Carbon Dioxide (22-30) mmol/L Anion Gap (5-15) MEQ/L BUN (7-17) mg/dL Creatinine (0.52-1.04) mg/dL Estimated GFR ML/MIN Glucose (74-106) mg/dL POC Glucometer 248 H 374 H (74 to 106) mg/dL Calcium (8.4-10.2) mg/dL Troponin I < 0.012 (0.000-0.034) ng/mL 12/02/22 12/02/22 12/02/22 Range/Units 01:10 05:00 05:00 WBC 7.6 (4.0-10.5) x10^3/uL RBC 3.49 L (4.1-5.4) x10^6/uL Hgb 9.6 L (12.0-16.0) g/dL Hct 30.4 L (35-47) % MCV 87.1 (78-100) fL MCH 27.5 (26-32) pg MCHC 31.6 L (32-36) g/dL RDW 18.7 H (11.5-14.0) % Plt Count 246 (150-450) x10^3/uL MPV 10.2 (7.5-11.0) fL Puncture Site RIGHT BRACHIAL pCO2 41 (35-45) mmHg pO2 91 (75-100) mmHg Base Excess 4.1 H (-2.0-2.0) O2 Saturation 96.3 (94-100) g/dF ABG pH 7.45 (7.35-7.45) ABG HCO3 28.5 H (22-28) ABG O2 Sat (Measured) 98.4 (95-100) % Canelo Test NOT APPLICABLE A-a Gradient 171 a/A Ratio 0.35 Hemoglobin 10.1 Carboxyhemoglobin 1.6 (0.0-6.9) % THgb Methemoglobin 0.5 L (1.4-1.5) % Potassium 3.8 4.2 D (3.5-5.1) Temperature 37.0 C POC O2 Flow Rate 44 % Sodium 131 L (137-145) mmol/L Chloride 103 (98-107) mmol/L Carbon Dioxide 27 (22-30) mmol/L Anion Gap 4.9 L (5-15) MEQ/L BUN 12 (7-17) mg/dL Creatinine 0.45 L (0.52-1.04) mg/dL Estimated GFR > 60.0 ML/MIN Glucose 321 H (74-106) mg/dL POC Glucometer (74 to 106) mg/dL Calcium 7.3 L (8.4-10.2) mg/dL Troponin I (0.000-0.034) ng/mL 12/02/22 12/02/22 Range/Units 07:13 11:32 WBC (4.0-10.5) x10^3/uL RBC (4.1-5.4) x10^6/uL Hgb (12.0-16.0) g/dL Hct (35-47) % MCV (78-100) fL MCH (26-32) pg MCHC (32-36) g/dL RDW (11.5-14.0) % Plt Count (150-450) x10^3/uL MPV (7.5-11.0) fL Puncture Site pCO2 (35-45) mmHg pO2 (75-100) mmHg Base Excess (-2.0-2.0) O2 Saturation (94-100) g/dF ABG pH (7.35-7.45) ABG HCO3 (22-28) ABG O2 Sat (Measured) (95-100) % Canelo Test A-a Gradient a/A Ratio Hemoglobin Carboxyhemoglobin (0.0-6.9) % THgb Methemoglobin (1.4-1.5) % Potassium (3.5-5.1) Temperature C POC O2 Flow Rate % Sodium (137-145) mmol/L Chloride (98-107) mmol/L Carbon Dioxide (22-30) mmol/L Anion Gap (5-15) MEQ/L BUN (7-17) mg/dL Creatinine (0.52-1.04) mg/dL Estimated GFR ML/MIN Glucose (74-106) mg/dL POC Glucometer 330 H 274 H (74 to 106) mg/dL Calcium (8.4-10.2) mg/dL Troponin I (0.000-0.034) ng/mL Microbiology 12/01/22 05:45 Blood Culture - Preliminary Blood NO GROWTH TO DATE 12/01/22 05:39 Blood Culture - Preliminary Blood NO GROWTH TO DATE Accuchecks Date 12/02/22 Date 12/01/22 Time 07:46 - Radiology Impressions Radiology Exams & Impressions: Radiology Procedures Category Date Time Status CHEST 1 VIEW (PORTABLE) Routine Exams 12/02/22 06:00 Completed CHEST WITH CONTRAST [CT] Stat Exams 12/01/22 11:15 Completed - Other Procedures and Tests Respiratory Therapy 12/01/22 12:02 Oxygen Nasal Cannula 4 lpm 12/03/22 05:00 EKG ONCE 12/04/22 05:00 EKG ONCE Assessment/Plan (1) Hospital-acquired pneumonia Current Visit: Yes Status: Acute Assessment & Plan: elevated WBC and productive cough - see Technology Services Manager recom.Will start IV antibiotics . Patient has multiple allergies -Pharmacist to dose Merrem. Code(s): J18.9 - PNEUMONIA, UNSPECIFIED ORGANISM; Y95 - NOSOCOMIAL CONDITION (2) COVID-19 Current Visit: Yes Status: Chronic Assessment & Plan: was just released from [facility] long stay Code(s): U07.1 - COVID-19 (3) Hx of deep venous thrombosis Current Visit: Yes Status: Chronic Assessment & Plan: continue Xareleto Code(s): Z86.718 - PERSONAL HISTORY OF OTHER VENOUS THROMBOSIS AND EMBOLISM (4) DM2 (diabetes mellitus, type 2) Current Visit: Yes Status: Chronic Assessment & Plan: monitor (5) Hypokalemia Current Visit: Yes Status: Acute Assessment & Plan: IV fluids with potassium,is on telemetry Code(s): E87.6 - HYPOKALEMIA (6) CHF (congestive heart failure) Current Visit: Yes Status: Chronic Assessment & Plan: monitor Code(s): I50.9 - HEART FAILURE, UNSPECIFIED
[2022-12-02] MEDS: HUMALOG SQ PRN ×2 (17:36→23:26)
[2022-12-02] MEDS ORDERED: PHARMACY DOSING REQUEST MC ONE (19:25)
[2022-12-02] MEDS ORDERED: VANCOMYCIN 1 GRAM/200 ML BAG 1 GM/200 ML PIGGYBACK IV ONE (20:00)
[2022-12-02] MEDS: Zanaflex 4 MG PO SCH (20:56)
[2022-12-02] MEDS: Mirapex 0.5 MG Tablet PO SCH (20:58)
[2022-12-02] MEDS: KLONOPIN PO SCH (22:05)
[2022-12-02 23:30] LABS: Risk Ratio 10.1
[2022-12-03] MEDS: Merrem 1 GM in Sodium Chloride 0.9% 100 ML IV SCH ×2 (00:01→06:16)
[2022-12-03] MEDS ORDERED: Sodium Chloride 0.9% 1000 ML 1,000 ML IV STA ×2 (03:50→03:53)
[2022-12-03] MEDS ORDERED: NOREPINEPHRINE 8 MG/250 ML-D5W 8 MG/250 ML PLAST..BAG IV PRN (03:53)
[2022-12-03 04:05] LABS: Absolute Neutrophil Ct (ANC) 12.29 x10^3/uL (1.4-6.9); BASOPHIL % 0.4 % (0.0-0.4); Basophil (Absolute #) 0.07 x10^3/uL (0-0.4); Eosinophil % 0.8 % (0.00-5.0); Eosinophil (Absolute #) 0.14 x10^3/uL (0-0.5); Hematocrit 35.8 % (35-47); Hemoglobin 10.7 g/dL (12.0-16.0); IMMATURE GRAN # 0.15 x10^3u/L (0.00-0.03); IMMATURE GRAN % 0.9 % (0.00-0.4); Lymphocyte (Absolute #) 4.29 x10^3/uL (1.0-4.6); Lymphocytes % 24.7 % (24.0-44.0); Mean Cell Volume 93.5 fL (78-100); Mean Corpuscular Hemoglobin 27.9 pg (26-32); Mean Corpuscular Hgb Concent. 29.9 g/dL (32-36); Mean Platelet Volume 10.9 fL (7.5-11.0); Monocyte (Absolute #) 0.42 x10^3/uL (0.0-1.3); Monocytes % 2.4 % (0.0-12.0); NUCLEATED RBC # 0.03 x10^3u/L (0.00-0.01); NUCLEATED RBC % 0.2 % (0.00-0.1); Neutrophil % 70.8 % (36.0-66.0); Platelet Count 353 x10^3/uL (150-450); Red Blood Count 3.83 x10^6/uL (4.1-5.4); Red Cell Distribution Width 19.3 % (11.5-14.0); White Blood Count 17.4 x10^3/uL (4.0-10.5)
[2022-12-03] MEDS: MORPHINE SULFATE 2 MG INJ IV PRN ×2 (04:06→04:47)
[2022-12-03 04:16] LABS: ALKALINE PHOSPHATASE 88 U/L (38-126); ANION GAP 20.7 MEQ/L (5-15); BLOOD UREA NITROGEN 9 mg/dL (7-17); CHLORIDE 105 mmol/L (98-107); Creatinine 1 0.63 mg/dL (0.52-1.04); EST GLOMERULAR FILTRATION RATE > 60.0 ML/MIN; MAGNESIUM 1.4 mg/dL (1.6-2.3); Potassium 4.7 mmol/L (3.5-5.1); SGOT/AST 30 U/L (14-36); SGPT/ALT 21 U/L (0-35); SODIUM 135 mmol/L (137-145); TROPONIN 0.033 ng/mL (0.000-0.034); Total Protein 5.8 g/dL (6.3-8.2)
[2022-12-03] MEDS ORDERED: FEVERALL 650 MG PR PRN (04:18)
[2022-12-03 04:19] LABS: Carbon Dioxide 14 mmol/L (22-30); Glucose 531 mg/dL (74-106)
[2022-12-03 04:49] LABS: A-aADO2 248; ABG HEMOGLOBIN 11.3; ABG POTASSIUM 5.2 (3.5-5.1); ARTERIAL BLD GAS O2 SATURATION 47.5 % (95-100); ARTERIAL BLOOD GAS BASE EXCESS -14.7 (-2.0-2.0); ARTERIAL BLOOD GAS FIO2 44 %; ARTERIAL BLOOD GAS PCO2 26 mmHg (35-45); CARBOXYHEMOGLOBIN 0.3 % THgb (0.0-6.9); HCO3- 11.1 (22-28); HGB O2 SAT 47.1 g/dF (94-100); Methhemoglobin 0.6 % (1.4-1.5); paO2 pAO1 0.12
[2022-12-03 04:50] LABS: ARTERIAL BLOOD GAS pH 7.24 (7.35-7.45)
[2022-12-03 04:51] LABS: ABG SITE RIGHT BRACHIAL; ARTERIAL BLOOD GAS PO2 33 mmHg (75-100)
[2022-12-03] MEDS ORDERED: Propofol 1000 mg/100 ml Bottle 100 ML IV PRN (05:03)
[2022-12-03] MEDS ORDERED: PHARMACY DOSING REQUIRED: VANCOMYCIN IV STA (05:04)
[2022-12-03 05:05] LABS: A-aADO2 580; ABG HEMOGLOBIN 10.8; ABG POTASSIUM 5.4 (3.5-5.1); ARTERIAL BLD GAS TIDAL VOLUME 500 cc; ARTERIAL BLOOD GAS BASE EXCESS -12.8 (-2.0-2.0); ARTERIAL BLOOD GAS FIO2 100 %; ARTERIAL BLOOD GAS PCO2 46 mmHg (35-45); ARTERIAL BLOOD GAS PO2 76 mmHg (75-100); BIPAP(E) 8; CARBOXYHEMOGLOBIN 1.4 % THgb (0.0-6.9); HCO3- 15.7 (22-28); HGB O2 SAT 92.2 g/dF (94-100); Methhemoglobin 0.5 % (1.4-1.5); paO2 pAO1 0.12
[2022-12-03 05:07] LABS: ARTERIAL BLOOD GAS VENT MODE AVAPS; ARTERIAL BLOOD GAS pH 7.14 (7.35-7.45)
[2022-12-03 05:08] LABS: ARTERIAL BLOOD GAS VENT RATE 18 /MIN
[2022-12-03 05:09] LABS: ABG SITE RIGHT BRACHIAL
[2022-12-03] MEDS ORDERED: SODIUM BICARBONATE 50 MEQ/50 ML ABBOJECT IV ONE (05:20)
[2022-12-03] MEDS ORDERED: Lasix 20 MG/2 ML IV ONE ×2 (05:33)
[2022-12-03] MEDS ORDERED: Lasix 40 MG/4 ML ONE (05:37)
[2022-12-03] MEDS ORDERED: Lasix 40 MG/4 ML IV ONE (06:02)
[2022-12-03] MEDS: Sodium Chloride 0.9% W/ 20 mEq KCl/LITER 1,000 ML IV SCH ×2 (06:04→06:05)
[2022-12-03 07:59] LABS: A-aADO2 572; ABG HEMOGLOBIN 10.4; ABG POTASSIUM 5.5 (3.5-5.1); ARTERIAL BLD GAS TIDAL VOLUME 550 cc; ARTERIAL BLOOD GAS BASE EXCESS -15.9 (-2.0-2.0); ARTERIAL BLOOD GAS FIO2 100 %; ARTERIAL BLOOD GAS PO2 55 mmHg (75-100); ARTERIAL BLOOD GAS VENT MODE A/C; CARBOXYHEMOGLOBIN 2.1 % THgb (0.0-6.9); HCO3- 15.9 (22-28); HGB O2 SAT 74.3 g/dF (94-100); Methhemoglobin 0.1 % (1.4-1.5); paO2 pAO1 0.09
[2022-12-03 08:00] LABS: ARTERIAL BLOOD GAS PCO2 69 mmHg (35-45); ARTERIAL BLOOD GAS VENT RATE 24 /MIN; ARTERIAL BLOOD GAS pH 6.97 (7.35-7.45)
[2022-12-03 08:01] LABS: ABG SITE LEFT FEMORAL
[2022-12-03 08:10] VITALS: O2SAT 86
[2022-12-03] MEDS ORDERED: Zemuron 100 MG/10 ML IJ ONE (08:19)
[2022-12-03] MEDS ORDERED: VERSED 5 MG/5 ML IV ONE (08:19)
[2022-12-03 08:32] VITALS: BP 94/65; PULSE 132
[2022-12-03] MEDS ORDERED: EPINEPHRINE ABBOJECT 1 MG/10 ML IV ONE (08:55)
--- NOTE | 2022-12-03 08:58 | XRAY ---
Indication: Respiratory distress. Comparison: One day earlier. Portable chest continues to demonstrate worsening significant diffuse bilateral consolidating/nonconsolidating airspace disease. Heart not enlarged. Comment: Preliminary interpretation made by [facility]. No critical discrepancy.
--- NOTE | 2022-12-03 08:58 | XRAY ---
Indication: Endotracheal tube placement. Comparison: Taken earlier in the day. Portable chest demonstrates new endotracheal tube tip approximately 2.5 cm above sadi. Lungs demonstrates worsening diffuse bilateral more consolidating appearing airspace disease now obscuring cardiac silhouette. Comment: Preliminary interpretation made by [facility]. No critical discrepancy.
[2022-12-03] MEDS ORDERED: VANCOMYCIN 1 GRAM/200 ML BAG 1 GM/200 ML PIGGYBACK IV SCH (10:00)
[2022-12-04] MEDS ORDERED: Glucophage 500 MG PO SCH (10:00)
== END 2022-12-03 08:56 | disposition short-term general hospital (02) | DRG 193 ==
LOC: ED 04:09 → MED SURG 12:35 → INTOOBSV 12:35 → OBSVTOIN 12:35 → ICU 12-03 04:02
PROVIDERS: ADMIT Family Medicine; ATTEND Family Medicine
DX: J18.9 Pneumonia, unspecified organism (principal); U07.1 COVID-19; Y95 Nosocomial condition; Z86.718 Personal history of other venous thrombosis and embolism; E11.9 Type 2 diabetes mellitus without complications; E87.6 Hypokalemia; I50.9 Heart failure, unspecified; R07.9 Chest pain, unspecified; I25.10 Atherosclerotic heart disease of native coronary artery without angina pectoris; E78.5 Hyperlipidemia, unspecified; Z79.01 Long term (current) use of anticoagulants; Z72.0 Tobacco use; Z79.899 Other long term (current) drug therapy; Z20.828 Contact with and (suspected) exposure to other viral communicable diseases
CPT/HCPCS: 0241U; 31500; 36000; 36140; 36415; 36600; 71045; 71260; 76942; 80048; 80053; 80061; 81001; 82375; 82803; 82947; 83605; 83721; 83735; 83880; 84484; 85025; 85027; 85379; 87040; 87811; 92950; 93005; 93041; 94002; 94760; 94762; 96360; 97161; 99285; G0378; J0171; J1817; J1940; J2250; J2270; J2704; A9270-GY; J3370